=== PATIENT | female | born 1935 | race Caucasian/White ===

== ENCOUNTER → 2016-09-30 | Outpatient (CLI) | payer OTHER ==
[~2016-09-30] MED LIST: ALPR0.25 PO; B-COTAB18 PO; CALC-354 PO; CEPH500C2 PO; CIPR250T3 PO; CMD/25 PO; DILT-113 PO; DILT180C53 PO; FRS/40 PO; FURO40TA3 PO; LEVO150T9 PO; LOSA1TAB PO; MAGNTAB17 PO; MCRK20 PO; METO1TAB68 PO; METO1TAB69 PO; MULT-506 PO; PRD/1 PO; SLWMEC PO; WARF5TAB7 PO
--- NOTE | 2016-09-30 14:28 | MAMMOGRAPHY REPORT ---
BILATERAL DIGITAL SCREENING MAMMOGRAM WITH CAD: 09/30/2016 CLINICAL HISTORY: Asymptomatic. Personal history of breast cancer. TECHNIQUE: Bilateral CC, MLO and repeat left CC and MLO views were obtained. Current study was also evaluated with a Computer Aided Detection (CAD) system. COMPARISON: Comparison is made to exams dated: 09/26/2015 mammogram, 05/05/2014 mammogram, 3 mammogram, 01/29/2012 mammogram, 01/18/2011 mammogram, and 01/16/2010 mammogram - [facility]. BREAST COMPOSITION: There are scattered areas of fibroglandular density in both breasts. FINDINGS: A pacemaker is partially visualized projecting in the superior posterior left breast on th e MLO view. There is evidence of prior surgery in the anterior left breast. There are moderate vas cular calcifications and scattered benign round calcifications in the breasts. There are grouped pu nctate microcalcifications in each upper outer quadrant, stable dating back to at least 2008. A 10 mm rounded mass in the superior left breast is unchanged in size dating back to at least 2007, there fore likely benign. No new suspicious mass, architectural distortion or cluster of microcalcificati ons is seen. IMPRESSION: ACR BI-RADS CATEGORY 1: NEGATIVE There is no mammographic evidence of malignancy. A 1 year screening mammogram is recommended. The p atient will receive written notification of the results. Approximately 10% of breast cancers are not detected with mammography. A negative mammographic repor t should not delay biopsy if a clinically suggestive mass is present. Alejandra Recinos M.D. ay/:09/30/2016 13:55:41 Md Do Resident Urgent Care: Delma KINNEY(R)(M), [facility] letter sent: Normal 1/2 BI-RADS Code: ACR BI-RADS Category 1: Negative
== END | disposition home or self-care (01) ==
LOC: C.MAMM 10:39
PROVIDERS: ATTEND Family Medicine
DX: Z12.31 Encounter for screening mammogram for malignant neoplasm of breast (principal)

== ENCOUNTER → 2016-10-15 | Outpatient (CLI) | payer OTHER ==
[~2016-10-15] MED LIST changes: +METO-479 PO; +METO100T44 PO; -METO1TAB68 PO; -METO1TAB69 PO
== END | disposition home or self-care (01) ==
LOC: C.MAMM 11:26
PROVIDERS: ATTEND Internal Medicine Rheumatology
DX: Z79.52 Long term (current) use of systemic steroids (principal); M54.16 Radiculopathy, lumbar region; M81.0 Age-related osteoporosis without current pathological fracture; M85.89 Other specified disorders of bone density and structure, multiple sites

== ENCOUNTER → 2016-10-18 | Outpatient (CLI) | payer OTHER | END | disposition home or self-care (01) | LOC: C.LAB1850 11:22 | PROVIDERS: ATTEND Internal Medicine Rheumatology | DX: M35.3 Polymyalgia rheumatica (principal); Z79.52 Long term (current) use of systemic steroids; M25.473 Effusion, unspecified ankle; M85.80 Other specified disorders of bone density and structure, unspecified site; R29.898 Other symptoms and signs involving the musculoskeletal system ==

== ENCOUNTER 2016-12-21 04:38 | Inpatient (IN) | payer OTHER ==
[~2016-12-21] VITALS: Ht 175.3 cm; Wt 93.7 kg
[2016-12-21] VITALS (9 sets, daily range): BP systolic 112–151; BP diastolic 77–86; PULSE 81–99; TEMP 36.4–38.2; O2SAT 94–97; Ht 175.3 cm; Wt 93.7 kg
[~2016-12-21 04:38] MED LIST changes: -CEPH500C2 PO; -CIPR250T3 PO; -DILT180C53 PO; -FRS/40 PO; -LEVO150T9 PO; -LOSA1TAB PO; -METO100T44 PO; -SLWMEC PO; -WARF5TAB7 PO
[2016-12-21] MEDS ORDERED: ONDANSETRON INJ 2 MG/ML 2 ML VIAL IV STA (04:51)
[2016-12-21] MEDS ORDERED: SODIUM CHLORIDE 0.9% 500ML 500 ML IV STA (04:51)
[2016-12-21] MEDS ORDERED: FENTANYL CITRATE INJ 50 MCG/1 ML 2 ML VIAL IV STA (04:51)
[2016-12-21 04:59] LABS: BASO % 0.4 %; BASO ABS # 0.03 K/uL (0-0.2); COMPLETE YES; EOS % 0.3 %; HEMATOCRIT 40.6 % (37-47); IG% 0.7 %; LYMPH % 12.1 %; LYMPH ABS # 0.88 K/uL (1.2-3.4); MEAN CELL VOLUME 91.2 fL (80-100); MEAN CORPUSCULAR HEMOGLOBIN 29.9 pg (25-34); MEAN CORPUSCULAR HGB CONC 32.8 g/dl (32-36); MEAN PLATELET VOLUME 10.5 fL (7.4-10.4); NEUT % 81.5 %; PLATELET COUNT 232 K/uL (130-400); RED BLOOD COUNT 4.45 M/uL (4.2-5.4); WHITE BLOOD COUNT 7.26 K/uL (4.8-10.8)
[2016-12-21 05:09] LABS: INR 1.7 (0.9-1.1); PARTIAL THROMBOPLASTIN RATIO 1.2; PROTHROMBIN TIME (PATIENT) 18.8 SECONDS (9.0-12.0)
[2016-12-21 05:31] LABS: BUN/CREATININE RATIO 15.1 (10-20); CALCIUM 8.4 mg/dl (8.5-10.1); CREATININE 0.96 mg/dl (0.60-1.20); POTASSIUM 4.2 mmol/L (3.5-5.1)
[2016-12-21 05:42] LABS: ALB/GLOB RATIO 0.9 (0.9-2); THYROID STIMULATING HORMONE 4.51 uIu/ml (0.300-4.500)
[2016-12-21] MEDS ORDERED: FUROSEMIDE 40 MG/4 ML VIAL IV STA (05:45)
--- NOTE | 2016-12-21 05:47 | EMERGENCY ROOM VISIT NOTE ---
ED Visit Note First contact with patient: 04:41 I have personally evaluated and examined this patient. I agree with assessment and plan of Elisabet Pedersen with hypoxia on RA with congestive findings by exam/cxr. BNP elevated as well. History of CHF as well. Hypertensive here and will give IV lasix for diuresis.
[2016-12-21] MEDS ORDERED: FRS/40 PO (05:53)
[2016-12-21] MEDS ORDERED: LOSA1TAB PO (05:54)
[2016-12-21] MEDS ORDERED: SLWMEC PO (05:54)
[2016-12-21] MEDS ORDERED: LEVO150T9 PO (05:56)
[2016-12-21] MEDS ORDERED: PRD/1 PO (05:56)
[2016-12-21] MEDS ORDERED: MCRK20 PO (05:57)
[2016-12-21 06:41] LABS: MANUAL MICROSCOPIC REQUIRED? NO; REVIEW REQ? NO; URINE APPEARANCE CLEAR (CLEAR); URINE BILIRUBIN NEG (NEG); URINE COLOR YELLOW; URINE NITRITE POS (NEG); URINE PH 6.5 (4.5-7.5); URINE SPECIFIC GRAVITY 1.013 (1.000-1.030); UROBILINOGEN NEG (NEG)
--- NOTE | 2016-12-21 06:46 | EMERGENCY ROOM VISIT NOTE ---
History First contact with patient: 04:41 Chief Complaint: NAUSEA Stated Complaint: NAUSEA Nursing Triage Summary: Pt arrived via EMS. Nauseated since friday. Family states increased weakness. Family thought she should come in. History of Present Illness The patient is a 81 year old female who presents to the Emergency Room for evaluation of nausea and weakness. Per the patient's family, she has been ill for the past 2-3 days. They state that she has been weak. She reports nausea and a headache which she rates a 7/10. She complains of generalized weakness. There is no focal weakness. She denies chest pain or shortness of breath. She denies cough. She denies abdominal pain, changes in bowel movements, rectal bleeding or fevers/chills. The patient reports a history of hypertension and has a pacemaker. She does take Lasix as needed for swelling and states that she has been taking it daily for the past few days. Review of Systems A complete 10 point review of systems was reviewed with the patient with pertinent positives and negatives as per history of present illness. All else were negative. Past Medical/Surgical History Medical Problems: (1) Atrial fibrillation (2) Systolic congestive heart failure Social History Smoking Status: Never Smoker Marital Status: Current/Historical Medications Scheduled Calcium Carbonate-Cholecalcife (Caltrate 600+D), 1 TAB PO DAILY Diltiazem Hcl Ext Rel (Tiazac), 180 MG PO DAILY Furosemide (Lasix), 40 MG PO DAILY Levothyroxine Sodium (Levothyroxine Sodium), 150 MCG PO sundays Losartan Potassium (Cozaar), 25 MG PO DAILY Magnesium Chloride (Slow-Mag Tab), 64 MG PO DAILY Multivitamin (Multivitamin), 1 TAB PO DAILY Potassium Chloride (Klor-Con M20), 20 MEQ PO DAILY Prednisone (Prednisone), 9 MG PO DAILY Scheduled PRN Furosemide (Lasix), 40 MG PO DAILY PRN for SWELLING Potassium Chloride (Klor-Con M20), 20 MEQ PO DAILY PRN for when increasing lasix Allergies Coded Allergies: No Known Drug Allergy (Verified Allergy, Unknown, ., 12/21/16) Physical Exam Vital Signs Date Time Temp Pulse Resp B/P (MAP) Pulse Ox O2 Delivery O2 Flow Rate FiO2 12/21/16 07:30 103 15 157/114 95 Nasal Cannula 4.0 12/21/16 07:00 104 29 156/99 93 12/21/16 06:42 103 31 164/107 93 Nasal Cannula 4.0 12/21/16 06:00 98 39 177/93 91 12/21/16 05:33 177/122 12/21/16 05:00 99 27 173/126 93 12/21/16 04:56 92 Nasal Cannula 2.0 12/21/16 04:55 92 Nasal Cannula 2.0 12/21/16 04:54 111 12/21/16 04:42 36.5 105 32 173/102 Room Air 12/21/16 04:42 87 Room Air Physical Exam VITALS: Vitals are noted on the nurse's note and reviewed by myself. Vital signs stable. GENERAL: This is an 81-year-old female, in no acute distress, nondiaphoretic, well-developed well-nourished. HEAD: Normocephalic atraumatic. EARS: External auditory canals clear, tympanic membranes pearly crawford without erythema or effusion bilaterally. EYES: Pupils equal round and reactive to light and accommodation. Conjunctivae without injection, sclerae without icterus. Extraocular movements intact. MOUTH: Mucous membranes moist. Tonsils are not enlarged. Pharynx without erythema or exudate. NECK: Supple without nuchal rigidity. HEART: Regular rate and rhythm without murmurs gallops or rubs. LUNGS: Tachypneic, coarse lung sounds throughout. Conversational dyspnea noted. ABDOMEN: Positive bowel sounds x 4. Soft, nontender to palpation. NEURO: Patient was drowsy but responds to verbal stimuli. Medical Decision & Procedures ER Provider Diagnostic Interpretation: Chest X-ray per my interpretation: There is pulmonary vascular congestion consistent with congestive heart failure. No infiltrates. CT HEAD: No acute intracranial abnormality. No ICH, mass effect or edema Cortical atrophy and white matter changes most consistent with chronic small vessel disease. Visualized sinuses and mastoid air cells are clear. Radiologist: Faizan Hidalgo MD Laboratory Results Test 12/21/16 04:45 12/21/16 05:05 12/21/16 06:18 Immature Granulocyte % (Auto) 0.7 % White Blood Count 7.26 K/uL (4.8-10.8) Red Blood Count 4.45 M/uL (4.2-5.4) Hemoglobin 13.3 g/dL (12.0-16.0) Hematocrit 40.6 % (37-47) Mean Corpuscular Volume 91.2 fL (80-100) Mean Corpuscular Hemoglobin 29.9 pg (25-34) Mean Corpuscular Hemoglobin Concent 32.8 g/dl (32-36) Platelet Count 232 K/uL (130-400) Mean Platelet Volume 10.5 fL (7.4-10.4) Neutrophils (%) (Auto) 81.5 % Lymphocytes (%) (Auto) 12.1 % Monocytes (%) (Auto) 5.0 % Eosinophils (%) (Auto) 0.3 % Basophils (%) (Auto) 0.4 % Neutrophils # (Auto) 5.92 K/uL (1.4-6.5) Lymphocytes # (Auto) 0.88 K/uL (1.2-3.4) Monocytes # (Auto) 0.36 K/uL (0.11-0.59) Eosinophils # (Auto) 0.02 K/uL (0-0.5) Basophils # (Auto) 0.03 K/uL (0-0.2) Immature Granulocyte # (Auto) 0.05 K/uL (0.00-0.02) Activated Partial Thromboplast Time 31.7 SECONDS (21.0-31.0) Partial Thromboplastin Ratio 1.2 Est Creatinine Clear Calc Drug Dose 58.5 ml/min Total Bilirubin 0.5 mg/dl (0.2-1) Aspartate Amino Transf (AST/SGOT) 20 U/L (15-37) Alanine Aminotransferase (ALT/SGPT) 24 U/L (12-78) Alkaline Phosphatase 79 U/L (45-117) Pro-B-Type Natriuretic Peptide 2757 pg/ml (0-1800) Total Protein 7.0 gm/dl (6.4-8.2) Albumin 3.3 gm/dl (3.4-5.0) Globulin 3.7 gm/dl (2.5-4.0) Albumin/Globulin Ratio 0.9 (0.9-2) Thyroid Stimulating Hormone (TSH) 4.510 uIu/ml (0.300-4.500) Bedside Glucose 93 mg/dl (70-90) Urine Color YELLOW Urine Appearance CLEAR (CLEAR) Urine pH 6.5 (4.5-7.5) Urine Specific [place] 1.013 (1.000-1.030) Urine Protein NEG (NEG) Urine Glucose (UA) NEG (NEG) Urine Ketones NEG (NEG) Urine Occult Blood 1+ (NEG) Urine Nitrite POS (NEG) Urine Bilirubin NEG (NEG) Urine Urobilinogen NEG (NEG) Urine Leukocyte Esterase NEG (NEG) Urine WBC (Auto) 1-5 /hpf (0-5) Urine RBC (Auto) 0-4 /hpf (0-4) Urine Hyaline Casts (Auto) 0 /lpf (0-5) Urine Epithelial Cells (Auto) 10-20 /lpf (0-5) Urine Bacteria (Auto) 4+ (NEG) Medications Administered Medications (Trade) Dose Ordered Sig/Momo Route Start Time Stop Time Status Last Admin Dose Admin Sodium Chloride 500 ml @ 999 mls/hr Q31M STAT IV 12/21/16 04:51 12/21/16 05:08 DC 12/21/16 05:01 999 MLS/HR Fentanyl Citrate (Fentanyl Inj) 50 mcg NOW STAT IV 12/21/16 04:51 12/21/16 04:54 DC 12/21/16 05:02 50 MCG Ondansetron HCl (Zofran Inj) 4 mg NOW STAT IV 12/21/16 04:51 12/21/16 04:54 DC 12/21/16 05:01 4 MG Furosemide (Lasix Inj) 40 mg NOW STAT IV 12/21/16 05:45 12/21/16 05:46 DC 12/21/16 05:53 40 MG Ceftriaxone Sodium (Rocephin Inj) 1 gm NOW STAT IV 12/21/16 07:03 12/21/16 07:04 DC 12/21/16 07:30 1 GM Acetaminophen (Tylenol Tab) 650 mg Q4H PRN PO 12/21/16 07:45 01/20/17 07:44 12/21/16 19:43 650 MG ECG Rate (beats per minute): 102 Rhythm: other (ventricular-paced) Change: no significant change ED Course The patient was evaluated as above. Labs were drawn and IV access was obtained. Patient was placed on 2 L oxygen via nasal cannula and titrated up to 4 L to maintain saturations above 90%. Chest x-ray was performed and shows evidence of failure. 4 mg Lasix was ordered. Patient was reevaluated and findings were discussed. She will be admitted for further care. Urine sample was obtained and does appear consistent with infection. Patient was given 1 g Rocephin. Case was discussed with the [facility] Hospital[facility]. They agreed to evaluate the patient for admission. Medical Decision Differential diagnosis includes infection, metabolic abnormality, pneumonia, congestive heart failure, stroke, malignancy, among others. The patient is an 81-year-old female who presents today complaining of feeling ill and generalized weakness. The patient was tachypneic at a rate of 32 on my initial examination. Her oxygen saturation's hovered around 85% on room air. She did have conversational dyspnea. She was placed on oxygen and seemed to feel much better on reevaluation. Chest x-ray showed evidence of congestive heart failure. BNP was elevated at 2,700. The patient will need to be admitted due to hypoxia. Additionally, the patient's urinalysis is suggestive of a urinary tract infection. I do not feel that the patient is septic. She is afebrile and has no leukocytosis. She was given 1 g Rocephin empirically pending the urine culture. The patient was informed that she needs to be admitted for further evaluation and care. She was agreeable to this. Patient will be evaluated by the [facility] Hospitalist service for further evaluation and treatment. The patient was independently evaluated by Dr. Goldberg, ED attending physician , who agreed with my assessment and treatment plan. Impression Primary Impression: Congestive heart failure Additional Impression: Urinary tract infection Departure Information Referrals Celia Will D.O. (PCP) Patient Instructions My [facility] Problem Qualifiers
--- NOTE | 2016-12-21 06:49 | DIAGNOSTIC IMAGING REPORT ---
CHEST ONE VIEW PORTABLE CLINICAL HISTORY: nausea dyspnea COMPARISON STUDY: 12/24/2013 FINDINGS: Congestive heart failure. Moderate cardiomegaly. Implantable cardiac pacemaker/defibrillator. IMPRESSION: Congestive heart failure Electronically signed by: Mike Manrique M.D. 12/21/2016 6:47 AM Dictated Date/Time: 12/21/2016 6:47 AM
--- NOTE | 2016-12-21 06:52 | DIAGNOSTIC IMAGING REPORT ---
HEAD CT NONCONTRAST CT DOSE: 614.27 mGy.cm HISTORY: Headache headache, nausea TECHNIQUE: Multiaxial CT images of the head were performed without the use of intravenous contrast. Comparison: None. Findings: The paranasal sinuses and mastoid air cells are clear. The calvarium and skull base are intact. The ventricles and sulci are within normal limits. There is no mass, hematoma, midline shift, or acute infarct. Age-related atrophy and chronic small vessel change Impression: No acute intracranial abnormality. Age-related change. Electronically signed by: Mike Manrique M.D. 12/21/2016 6:51 AM Dictated Date/Time: 12/21/2016 6:50 AM
[2016-12-21] MEDS ORDERED: CEFTRIAXONE SOD INJ 1 GM ADDVIAL IV STA (07:03)
[2016-12-21] MEDS ORDERED: ONDANSETRON INJ 2 MG/ML 2 ML VIAL IV PRN (07:45)
[2016-12-21] MEDS ORDERED: MAGNESIUM HYDROXIDE SUSP 30 ML UDC PO PRN (07:45)
[2016-12-21] MEDS ORDERED: ALUMINUM/MAGNESIUM/SIMETH (MAALOX MAX) 30 ML UDC PO PRN (07:45)
[2016-12-21] MEDS ORDERED: ACETAMINOPHEN 325 MG TAB PO PRN (07:45)
--- NOTE | 2016-12-21 08:29 | History and Physical ---
History & Physical Date & Time of Service: Dec 21, 2016 at 08:10 Chief Complaint: Nausea Primary Care Physician: Celia Will D.O. History of Present Illness Source: patient, family Ms. Hendricks is an 81 y/o female with PMHx of Persistent Atrial Fibrillation, Nonischemic Cardiomyopathy, Systolic Congestive Heart Failure S/P Pacemaker, PMR , and HTN who presents to the ED by EMS for nausea and weakness x 2-3 days. Family members at bedside report she has been generally weak over these past couple days but was waxing and waning. Also complains of a headache that was initially 7/10 that is located in the forehead and around her eyes but is currently improving. She takes daily Lasix 40 mg daily and utilizes when necessary dosing. Over the past couple days she reports needing to use her when necessary dosing. She is undergoing prednisone tapers for PMR and currently at prednisone 9 mg daily. Due to chronic steroid use she is unsure of her dry weight. She denies fever/chills, chest pain, SOB, emesis, abdominal pain, dysuria, melena/hematochezia. In the ED, patient noted to be 87% on room air and was placed on 4 L NC with adequate oxygenation. Patient does not utilize oxygen at home. She is afebrile and without leukocytosis. CXR consistent with acute CHF findings. BNP 2757. UA with 4+ bacteria and positive nitrite with culture pending. She will be admitted to telemetry for acute on chronic systolic CHF. Past Medical/Surgical History Medical Problems: (1) Atrial fibrillation Status: Chronic Family History Hypertension Social History Smoking Status: Never Smoker Smokeless Tobacco Use: No Alcohol Use: none Drug Use: none Marital Status: Housing status: lives with family Immunizations History of Influenza Vaccine: Yes History of Tetanus Vaccine?: Yes History of Pneumococcal: Yes History of Hepatitis B Vaccine: No Multi-Drug Resistant Organisms History of MDRO: No Allergies Coded Allergies: No Known Drug Allergy (Verified Allergy, Unknown, ., 12/21/16) Home Medications Scheduled Calcium Carbonate-Cholecalcife (Caltrate 600+D), 1 TAB PO DAILY Diltiazem Hcl Ext Rel (Tiazac), 180 MG PO DAILY Furosemide (Lasix), 40 MG PO DAILY Levothyroxine Sodium (Levothyroxine Sodium), 150 MCG PO sundays Losartan Potassium (Cozaar), 25 MG PO DAILY Magnesium Chloride (Slow-Mag Tab), 64 MG PO DAILY Multivitamin (Multivitamin), 1 TAB PO DAILY Potassium Chloride (Klor-Con M20), 20 MEQ PO DAILY Prednisone (Prednisone), 9 MG PO DAILY Scheduled PRN Furosemide (Lasix), 40 MG PO DAILY PRN for SWELLING Potassium Chloride (Klor-Con M20), 20 MEQ PO DAILY PRN for when increasing lasix Review of Systems Constitutional: + weakness (generalized), + fatigue, No fever, No chills Eyes: No worsening of vision, No eye pain, No diplopia ENT: + problem reported (dry mouth), No nasal symptoms, No sore throat, No trouble swallowing Respiratory: No cough, No wheezing, No shortness of breath Cardiovascular: + edema (bilateral legs), No chest pain, No palpitations Abdomen: + nausea (RESOLVED), No pain, No vomiting, No diarrhea, No constipation, No GI bleeding Musculoskeletal: No calf pain Genitourinary - Female: No dysuria Hematologic / Lymphatic: No abnormal bleeding/bruising Integumentary: No rash, No new/changing skin lesions Physical Exam Vital Signs Date Time Temp Pulse Resp B/P (MAP) Pulse Ox O2 Delivery O2 Flow Rate FiO2 12/21/16 08:08 96 12/21/16 07:30 103 15 157/114 95 Nasal Cannula 4.0 12/21/16 07:00 104 29 156/99 93 12/21/16 06:42 103 31 164/107 93 Nasal Cannula 4.0 12/21/16 06:00 98 39 177/93 91 12/21/16 05:33 177/122 12/21/16 05:00 99 27 173/126 93 12/21/16 04:56 92 Nasal Cannula 2.0 12/21/16 04:55 92 Nasal Cannula 2.0 12/21/16 04:54 111 12/21/16 04:42 36.5 105 32 173/102 Room Air 12/21/16 04:42 87 Room Air General Appearance: WD/WN, no apparent distress Head: normocephalic, atraumatic Eyes: sclerae normal ENT: hearing grossly normal Neck: supple, no JVD, trachea midline Respiratory/Chest: no respiratory distress, no accessory muscle use, + crackles (mild R base) Cardiovascular: no gallop, no murmur, + irregularly irregular Abdomen/GI: normal bowel sounds, non tender, soft Back: normal inspection, no CVA tenderness Extremities/Musculoskelatal: no calf tenderness, + swelling (1-2+ bilat pitting edema) Neurologic/Psych: alert, oriented x 3 Skin: normal color, warm/dry Diagnostics Laboratory Results Results Past 24 Hours Test 12/21/16 04:45 12/21/16 05:05 12/21/16 06:18 Range/Units White Blood Count 7.26 4.8-10.8 K/uL Red Blood Count 4.45 4.2-5.4 M/uL Hemoglobin 13.3 12.0-16.0 g/dL Hematocrit 40.6 37-47 % Mean Corpuscular Volume 91.2 80-100 fL Mean Corpuscular Hemoglobin 29.9 25-34 pg Mean Corpuscular Hemoglobin Concent 32.8 32-36 g/dl Platelet Count 232 130-400 K/uL Mean Platelet Volume 10.5 7.4-10.4 fL Neutrophils (%) (Auto) 81.5 % Lymphocytes (%) (Auto) 12.1 % Monocytes (%) (Auto) 5.0 % Eosinophils (%) (Auto) 0.3 % Basophils (%) (Auto) 0.4 % Neutrophils # (Auto) 5.92 1.4-6.5 K/uL Lymphocytes # (Auto) 0.88 1.2-3.4 K/uL Monocytes # (Auto) 0.36 0.11-0.59 K/uL Eosinophils # (Auto) 0.02 0-0.5 K/uL Basophils # (Auto) 0.03 0-0.2 K/uL RDW Standard Deviation 44.8 36.4-46.3 fL RDW Coefficient of Variation 13.4 11.5-14.5 % Immature Granulocyte % (Auto) 0.7 % Immature Granulocyte # (Auto) 0.05 0.00-0.02 K/uL Prothrombin Time 18.8 9.0-12.0 SECONDS Prothromb Time International Ratio 1.7 0.9-1.1 Activated Partial Thromboplast Time 31.7 21.0-31.0 SECONDS Partial Thromboplastin Ratio 1.2 Sodium Level 138 136-145 mmol/L Potassium Level 4.2 3.5-5.1 mmol/L Chloride Level 106 98-107 mmol/L Carbon Dioxide Level 24 21-32 mmol/L Anion Gap 8.0 3-11 mmol/L Blood Urea Nitrogen 14 7-18 mg/dl Creatinine 0.96 0.60-1.20 mg/dl Est Creatinine Clear Calc Drug Dose 58.5 ml/min Estimated GFR () 64.3 Estimated GFR (Non- 55.5 BUN/Creatinine Ratio 15.1 10-20 Random Glucose 100 70-99 mg/dl Calcium Level 8.4 8.5-10.1 mg/dl Total Bilirubin 0.5 0.2-1 mg/dl Aspartate Amino Transf (AST/SGOT) 20 15-37 U/L Alanine Aminotransferase (ALT/SGPT) 24 12-78 U/L Alkaline Phosphatase 79 45-117 U/L Troponin I 0.017 0-0.045 ng/ml Pro-B-Type Natriuretic Peptide 2757 0-1800 pg/ml Total Protein 7.0 6.4-8.2 gm/dl Albumin 3.3 3.4-5.0 gm/dl Globulin 3.7 2.5-4.0 gm/dl Albumin/Globulin Ratio 0.9 0.9-2 Thyroid Stimulating Hormone (TSH) 4.510 0.300-4.500 uIu/ml Bedside Glucose 93 70-90 mg/dl Urine Color YELLOW Urine Appearance CLEAR CLEAR Urine pH 6.5 4.5-7.5 Urine Specific [place] 1.013 1.000-1.030 Urine Protein NEG NEG Urine Glucose (UA) NEG NEG Urine Ketones NEG NEG Urine Occult Blood 1+ NEG Urine Nitrite POS NEG Urine Bilirubin NEG NEG Urine Urobilinogen NEG NEG Urine Leukocyte Esterase NEG NEG Urine WBC (Auto) 1-5 0-5 /hpf Urine RBC (Auto) 0-4 0-4 /hpf Urine Hyaline Casts (Auto) 0 0-5 /lpf Urine Epithelial Cells (Auto) 10-20 0-5 /lpf Urine Bacteria (Auto) 4+ NEG Diagnostic Radiology CHEST ONE VIEW PORTABLE FINDINGS: Congestive heart failure. Moderate cardiomegaly. Implantable cardiac pacemaker/defibrillator. IMPRESSION: Congestive heart failure HEAD CT NONCONTRAST Findings: The paranasal sinuses and mastoid air cells are clear. The calvarium and skull base are intact. The ventricles and sulci are within normal limits. There is no mass, hematoma, midline shift, or acute infarct. Age-related atrophy and chronic small vessel change Impression: No acute intracranial abnormality. Age-related change Impression Assessment and Plan Ms. Hendricks is an 81 y/o female with PMHx of Persistent Atrial Fibrillation, Nonischemic Cardiomyopathy, Systolic Congestive Heart Failure S/P Pacemaker, PMR , and HTN who presents to the ED by EMS for nausea and weakness x 2-3 days. She will be admitted to telemetry for acute on chronic systolic CHF. Acute on Chronic Systolic CHF with Hypoxia: - Echo (2013) - EF 20-25% with septal motion conduction abnormality - however this echocardiogram was prior to pacemaker placement - Obtain updated echocardiogram - Serial cardiac enzymes - Lasix 40 mg IV 1 dose in ED will repeat Lasix 40 mg IV 1 dose at 2100 - Daily weights and I&O - unsure of dry weight Hypertensive Urgency: - Likely related to fluid overload - is improving with diuresis - Diltiazem 180 mg daily and losartan 25 mg daily UTI: - Rocephin 1 g IV daily - await culture results Persistent Atrial Fibrillation S/P Pacer: - INR subtherapeutic at 1.7 - Warfarin 5 mg daily and trend INR - Metoprolol XL 200 mg daily? - Will verify dosing due to high dose - Unsure of complete med rec as patient only has one page of her list - will obtain med rec PMR: STABLE - Prednisone 9 mg daily Hyperthyroidism: STABLE - Synthroid 150 mcg daily DVT Prophylaxis: Warfarin Code Status: FULL RESUSCITATION Level of Care Telemetry Advanced Directives Existing Advance Directive: Yes Resuscitation Status FULL RESUSCITATION VTE Prophylaxis VTE Risk Assessment Done? Y/N: Yes Risk Level: Moderate Given or contraindicated: Warfarin (Coumadin)
[2016-12-21] MEDS ORDERED: PERFLUTREN LIPID MICROSPHERE (DEFINITY) IV ONE (09:08)
[2016-12-21] MEDS ORDERED: FUROSEMIDE INJ 40 MG in SYRINGE 0 ML IV ONE (10:30)
--- NOTE | 2016-12-21 10:56 | ECHOCARDIOGRAM REPORT ---
*NOTICE TO RECEIVING REPUBLICAN AGENCY This information is strictly Confidential and protected under [place] law. [place] law prohibits you from making any further disclosure of this information unless further disclosure is expressly permitted by the written consent of the person to whom it pertains or is authorized by law. A general authorization for the release of medical or other information is not sufficient for this purpose. Hospital accepts no responsibility if the information is made available to any other person, INCLUDING THE PATIENT. Interpretation Summary * Name: CHRISTI UGARTE Study Date: 12/21/2016 08:43 AM BP: 147/108 mmHg * Patient Location: C.EDB HR: 100 * : 1935 (M/d/yyyy) Gender: Female Height: 69 in * Age: 81 yrs Ethnicity: [place] Weight: 225 lb * Ordering Physician: Daysi Richter * Referring Physician: MICKEY * Performed By: Rosa Isela Bernard RDCS * * Reason For Study: CHF * BSA: 2.2 m2 * -- Conclusions -- * The left ventricle is mildly dilated. * Ejection Fraction = 35-40%. * Left ventricular systolic function is moderately reduced. * The septum and anteroseptum are thin and akinetic. * The basal to mid inferior and inferolateral armenta are hypokinetic. * The left atrium is severely dilated. * Aortic valve sclerosis moderate, without significant aortic valvular stenosis. * Diastolic dysfunction, Grade III (restrictive pattern), consistent with markedly increased left atrial pressure. Procedure Details * A contrast injection of Definity was performed to improve assessment of LV function. * Contrast was injected into an intravenous site in the left arm. * One vial of Definity ultrasound contrast was diluted in normal saline to a total volume of 10 ml. A total of '2' ml of solution was administered during imaging. * Lot # [id number] of Definity utilized for procedure. * Expiration date FEB 21. * The attending nurse who injected the contrast agent was SAMIA LEPE. Left Ventricle * The left ventricle is mildly dilated. * Ejection Fraction = 35-40%. * Left ventricular systolic function is moderately reduced. * The septum and anteroseptum are thin and akinetic. The basal to mid inferior and inferolateral armenta are hypokinetic. Right Ventricle * The right ventricle is normal in size and function. Atria * The left atrium is severely dilated. * The right atrium is severely dilated. Mitral Valve * There is severe mitral annular calcification. * There is mild mitral regurgitation. Tricuspid Valve * The tricuspid valve is not well visualized, but is grossly normal. * There is mild to moderate tricuspid regurgitation. * Right ventricular systolic pressure is elevated at 30-40mmHg. Aortic Valve * Aortic valve sclerosis moderate, without significant aortic valvular stenosis. * No aortic regurgitation is present. Pulmonic Valve * The pulmonic valve is not well seen, but is grossly normal. Great Vessels * There is aortic root sclerosis/calcification. Pericardium/Pleural * There is no pericardial effusion. Great Vessels * IVC not well seen Left Ventricular Diastolic Function * Diastolic dysfunction, Grade III (restrictive pattern), consistent with markedly increased left atrial pressure. MMode 2D Measurements and Calculations IVSd 1.3 cm IVSs 1.4 cm LVIDd 3.9 cm LVIDs 3.5 cm LVPWd 1.3 cm LVPWs 1.6 cm IVS/LVPW 0.98 FS 12.0 % EDV(Teich) 66.9 ml ESV(Teich) 49.3 ml EF(Teich) 26.3 % EDV(cubed) 60.4 ml ESV(cubed) 41.2 ml EF(cubed) 31.7 % % IVS thick 8.5 % % LVPW thick 21.9 % LV mass(C)d 182.5 grams LV mass(C)dI 84.0 grams/m\S\2 LV mass(C)s 191.0 grams LV mass(C)sI 88.0 grams/m\S\2 SV(Teich) 17.6 ml SI(Teich) 8.1 ml/m\S\2 SV(cubed) 19.2 ml SI(cubed) 8.8 ml/m\S\2 Ao root diam 3.1 cm Ao root area 7.6 cm\S\2 LA dimension 3.9 cm LA/Ao 1.2 LVAd ap4 29.2 cm\S\2 LVLd ap4 6.8 cm EDV(MOD-sp4) 101.2 ml EDV(sp4-el) 105.9 ml LVAs ap4 22.0 cm\S\2 LVLs ap4 5.7 cm ESV(MOD-sp4) 70.1 ml ESV(sp4-el) 71.6 ml EF(MOD-sp4) 30.7 % EF(sp4-el) 32.3 % SV(MOD-sp4) 31.1 ml SI(MOD-sp4) 14.3 ml/m\S\2 SV(sp4-el) 34.3 ml SI(sp4-el) 15.8 ml/m\S\2 Doppler Measurements and Calculations MV E max annie 121.7 cm/sec MV dec time 0.18 sec Ao V2 max 132.7 cm/sec Ao max PG 7.0 mmHg Ao max PG (full) 4.9 mmHg LV V1 max PG 2.2 mmHg LV V1 max 73.7 cm/sec MR max annie 384.4 cm/sec MR max PG 59.1 mmHg TR max annie 254.4 cm/sec
[2016-12-21] MEDS ORDERED: WARFARIN SOD 5 MG TAB PO ONE (16:00)
[2016-12-21] MEDS ORDERED: METOPROLOL SUCC 50MG EXT REL TAB PO SCH (16:00)
[2016-12-21] MEDS: FUROSEMIDE INJ 40 MG in SYRINGE 0 ML IV SCH (17:00)
[2016-12-21] MEDS ORDERED: NURSING VERBAL MED ORDER ONE (18:15)
[2016-12-21] MEDS: METOPROLOL SUCC 50MG EXT REL TAB PO SCH (18:21)
[2016-12-21] MEDS ORDERED: ASPIRIN 325 MG ECTAB PO ONE (19:15)
[2016-12-21] MEDS: HYDROCORTISONE IV 50 MG in SYRINGE 0 ML IV SCH (22:05)
[2016-12-22] VITALS (7 sets, daily range): BP systolic 112–140; BP diastolic 66–87; PULSE 69–87; TEMP 36.4–36.8; O2SAT 91–98
[2016-12-22] MEDS: LEVOTHYROXINE 150 MCG TAB PO SCH (05:44)
[2016-12-22] MEDS: HYDROCORTISONE IV 50 MG in SYRINGE 0 ML IV SCH ×3 (05:45→21:42)
[2016-12-22 06:21] LABS: HEMATOCRIT 46.9 % (37-47); MEAN CELL VOLUME 91.2 fL (80-100); MEAN CORPUSCULAR HEMOGLOBIN 29.2 pg (25-34); MEAN PLATELET VOLUME 10.8 fL (7.4-10.4); PLATELET COUNT 227 K/uL (130-400); RED BLOOD COUNT 5.14 M/uL (4.2-5.4); WHITE BLOOD COUNT 6.55 K/uL (4.8-10.8)
[2016-12-22 06:28] LABS: INR 1.6 (0.9-1.1); PROTHROMBIN TIME (PATIENT) 17.5 SECONDS (9.0-12.0)
[2016-12-22 07:04] LABS: BUN/CREATININE RATIO 17.2 (10-20); CALCIUM 8.4 mg/dl (8.5-10.1); CREATININE 1.3 mg/dl (0.60-1.20); MAGNESIUM 2.1 mg/dl (1.8-2.4); POTASSIUM 3.4 mmol/L (3.5-5.1)
[2016-12-22] MEDS: FUROSEMIDE INJ 40 MG in SYRINGE 0 ML IV SCH ×2 (07:34→08:32)
[2016-12-22] MEDS: LOSARTAN POTASSIUM 25 MG TAB PO SCH (07:35)
[2016-12-22] MEDS: DILTIAZEM HCL (TIAzac) 180 MG CAPCR PO SCH (07:36)
[2016-12-22] MEDS: MULTIVITAMIN TAB PO SCH (07:36)
[2016-12-22] MEDS: METOPROLOL SUCC 50MG EXT REL TAB PO SCH (07:37)
[2016-12-22] MEDS: MAGNESIUM CHLORIDE 64MG DELAYED REL TAB PO SCH (07:37)
[2016-12-22] MEDS ORDERED: CEFTRIAXONE SOD INJ 1 GM in DEXTROSE 5% ADD-VANTAGE 50ML 50 ML IV SCH (08:00)
[2016-12-22] MEDS: POTASSIUM CHLORIDE 20 MEQ TABCR PO SCH (08:33)
[2016-12-22] MEDS ORDERED: POTASSIUM CHLORIDE 20 MEQ TABCR PO SCH (09:00)
--- NOTE | 2016-12-22 12:30 | Progress Note ---
Subjective Date of Service: Dec 22, 2016. Subjective Pt evaluation today including: conversation w/ patient, conversation w/ family , physical exam, lab review, review of studies, review of inpatient medication list Pain: no pain PO Intake: improving Voiding: hernandez catheter in place patient feels much better today, diuresed 5 liters since admission she looks more alert, feels more energetic today, perhaps due to Hydrocortisone long discussion with patient and family regarding compliance with Lasix she sometimes forgets to take her Lasix, for instance, she won't take it prior to temple or running errands, and then forget to take when she gets back she does not weigh herself every day she does not follow any type of fluid restriction, she drinks a lot of coffee, juice, water she has appointment with Dr. Taylor on Friday, requesting to see him in hospital, will place consult for tomorrow also, she has had ongoing issues with her PMR diagnosis, followed with several rheumatologists has been tapering her Prednisone dose Problem List Medical Problems: (1) Congestive heart failure Status: Acute (2) Urinary tract infection Status: Acute Review of Systems Constitutional: + weakness, + fatigue Respiratory: + shortness of breath (better) Cardiac: + edema Musculoskeletal: + joint pain (diffuse, mostly legs, chronic) All Other Systems: Reviewed and Negative Medications Current Inpatient Medications Medications (Trade) Dose Ordered Sig/Momo Route Start Time Stop Time Status Last Admin Dose Admin Acetaminophen (Tylenol Tab) 650 mg Q4H PRN PO 12/21/16 07:45 01/20/17 07:44 12/21/16 19:43 650 MG Al Hydrox/Mg Hydrox/Simethicone (Maalox Max Susp) 15 ml Q4H PRN PO 12/21/16 07:45 01/20/17 07:44 Magnesium Hydroxide (Milk Of Magnesia Susp) 30 ml Q12H PRN PO 12/21/16 07:45 01/20/17 07:44 Ondansetron HCl (Zofran Inj) 4 mg Q6H PRN IV 12/21/16 07:45 01/20/17 07:44 Polyethylene (Miralax Powder Packet) 17 gm DAILY PRN PO 12/21/16 07:45 01/20/17 07:44 Diltiazem HCl (TIAzac CAP) 180 mg DAILY PO 12/22/16 09:00 01/21/17 08:59 12/22/16 07:36 180 MG Levothyroxine Sodium (Synthroid Tab) 150 mcg DAILYBB PO 12/22/16 06:00 01/21/17 05:59 12/22/16 05:44 150 MCG Losartan Potassium (coZAAR TAB) 25 mg DAILY PO 12/22/16 09:00 01/21/17 08:59 12/22/16 07:35 25 MG Magnesium Chloride (Slow-Mag Tab) 64 mg DAILY PO 12/22/16 09:00 01/21/17 08:59 12/22/16 07:37 64 MG Multivitamins (Multivitamin Tab) 1 tab DAILY PO 12/22/16 09:00 01/21/17 08:59 12/22/16 07:36 1 TAB Prednisone (PredniSONE TAB) 9 mg DAILY PO 12/22/16 09:00 01/21/17 08:59 Future Hold Ceftriaxone Sodium 1 gm/ Dextrose 50 ml @ 100 mls/hr Q24H IV 12/22/16 08:00 12/27/16 07:59 12/22/16 07:34 100 MLS/HR Metoprolol Succinate (Toprol Xl Tab) 200 mg DAILY PO 12/21/16 21:00 01/20/17 15:59 12/22/16 07:37 200 MG Hydrocortisone Sodium Succinate 50 mg/Syringe 1 ml @ 4 mls/min Q8 IV 12/21/16 22:00 01/20/17 21:59 12/22/16 05:45 4 MLS/MIN Furosemide 40 mg/ Syringe 4 ml @ 4 mls/min DAILY IV 12/22/16 09:00 01/20/17 16:59 12/22/16 08:32 4 MLS/MIN Potassium Chloride (Klor-Con Tab) 40 meq DAILY PO 12/22/16 09:00 01/21/17 08:59 12/22/16 08:33 40 MEQ Warfarin Sodium (Coumadin Tab) 5 mg DAILY@16 PO 12/22/16 16:00 01/21/17 15:59 Objective Vital Signs Date Time Temp Pulse Resp B/P (MAP) Pulse Ox O2 Delivery O2 Flow Rate FiO2 12/22/16 11:45 36.7 87 26 112/66 (81) 95 Room Air 12/22/16 08:19 36.8 85 23 124/68 (86) 97 Nasal Cannula 2.0 12/22/16 08:00 Nasal Cannula 1.0 12/22/16 04:00 97 Nasal Cannula 4.0 12/22/16 03:31 36.4 76 16 140/87 (104) 97 Nasal Cannula 4.0 12/22/16 00:00 97 Nasal Cannula 4.0 12/21/16 23:15 36.6 81 20 122/77 (92) 97 Nasal Cannula 4.0 12/21/16 20:00 94 Nasal Cannula 3.0 12/21/16 19:58 36.7 89 31 124/86 (99) 94 Nasal Cannula 3.0 12/21/16 19:30 38.2 12/21/16 19:30 38.2 12/21/16 16:00 Nasal Cannula 2.0 12/21/16 15:50 36.4 99 23 129/86 (100) 97 Nasal Cannula 4.0 Physical Exam General Appearance: WD/WN, no apparent distress Neck: supple, no adenopathy, no JVD, trachea midline Respiratory/Chest: chest non-tender, lungs clear, normal breath sounds, no respiratory distress, no accessory muscle use Cardiovascular: regular rate, rhythm, no edema, no gallop, no JVD, no murmur Abdomen: normal bowel sounds, non tender, soft, no organomegaly Extremities: normal range of motion, non-tender, normal inspection, no calf tenderness, normal capillary refill, pelvis stable, + pedal edema (trace bilaterally) Neurologic/Psychiatric: certified medical biller II-XII nml as tested, no motor/sensory deficits, alert, normal mood/affect, oriented x 3 Skin: normal color, warm/dry, no rash Laboratory Results Last 24 Hours Test 12/21/16 16:55 12/22/16 05:35 Troponin I 0.366 ng/ml 0.355 ng/ml White Blood Count 6.55 K/uL Red Blood Count 5.14 M/uL Hemoglobin 15.0 g/dL Hematocrit 46.9 % Mean Corpuscular Volume 91.2 fL Mean Corpuscular Hemoglobin 29.2 pg Mean Corpuscular Hemoglobin Concent 32.0 g/dl RDW Standard Deviation 44.7 fL RDW Coefficient of Variation 13.4 % Platelet Count 227 K/uL Mean Platelet Volume 10.8 fL Prothrombin Time 17.5 SECONDS Prothromb Time International Ratio 1.6 Sodium Level 139 mmol/L Potassium Level 3.4 mmol/L Chloride Level 98 mmol/L Carbon Dioxide Level 30 mmol/L Anion Gap 11.0 mmol/L Blood Urea Nitrogen 22 mg/dl Creatinine 1.30 mg/dl Est Creatinine Clear Calc Drug Dose 41.4 ml/min Estimated GFR () 44.6 Estimated GFR (Non- 38.4 BUN/Creatinine Ratio 17.2 Random Glucose 116 mg/dl Calcium Level 8.4 mg/dl Magnesium Level 2.1 mg/dl Assessment and Plan Ms. Hendricks is an 81 y/o female with PMHx of Persistent Atrial Fibrillation, Nonischemic Cardiomyopathy, Systolic Congestive Heart Failure S/P Pacemaker, PMR , and HTN who presents to the ED by EMS for nausea and weakness x 2-3 days. She will be admitted to telemetry for acute on chronic systolic CHF. Acute on Chronic Systolic CHF with Hypoxia: likely due to poor compliance, steroid use responded well to Lasix 40mg IV BID, 5 liters out, weight going down fluid restrict to 1500cc/day, follow weight and I/O's continue Toprol 200mg BID, Losartan will decrease Lasix to 40mg IV daily, follow response consult cardiology to see tomorrow patient needs heart failure clinic referral, poor compliance, needs educated on fluid restriction and daily weights repeat Echo shows 35-40% Hypertensive Urgency: resolved - Likely related to fluid overload - is improving with diuresis - Diltiazem 180 mg daily and losartan 25 mg daily and Toprol 200mg BID UTI: - Rocephin 1 g IV daily - urine culture GN bacilli, change to PO antibiotic once culture back Persistent Atrial Fibrillation S/P Pacer: - INR subtherapeutic at 1.5 - Warfarin 5 mg daily and trend INR - Metoprolol XL 200 mg BID, Diltiazem PMR: STABLE - will give stress dose Hydrocortisone today, definitely responded well with more energy - resume Prednisone 9mg daily tomorrow Hyperthyroidism: STABLE - Synthroid 150 mcg daily DVT Prophylaxis: Warfarin Code Status: FULL RESUSCITATION keep on tele, PT/OT today
[2016-12-22] MEDS: POLYETHYLENE (MIRALAX) 17 GM PACK PO PRN (13:02)
[2016-12-22] MEDS: WARFARIN SOD 5 MG TAB PO SCH (15:11)
[2016-12-22] MEDS ORDERED: WARFARIN SOD 2.5 MG TAB PO SCH (16:00)
[2016-12-23] VITALS (7 sets, daily range): BP systolic 121–157; BP diastolic 65–93; PULSE 82–85; TEMP 36.4–36.7; O2SAT 93–98
[2016-12-23] MEDS: LEVOTHYROXINE 150 MCG TAB PO SCH (05:57)
[2016-12-23] MEDS: HYDROCORTISONE IV 50 MG in SYRINGE 0 ML IV SCH (06:00)
[2016-12-23 06:46] LABS: HEMATOCRIT 46.5 % (37-47); MEAN CELL VOLUME 90.1 fL (80-100); MEAN CORPUSCULAR HEMOGLOBIN 29.7 pg (25-34); MEAN CORPUSCULAR HGB CONC 32.9 g/dl (32-36); MEAN PLATELET VOLUME 11.3 fL (7.4-10.4); PLATELET COUNT 245 K/uL (130-400); RED BLOOD COUNT 5.16 M/uL (4.2-5.4); WHITE BLOOD COUNT 10.39 K/uL (4.8-10.8)
[2016-12-23 06:57] LABS: INR 2.3 (0.9-1.1); PROTHROMBIN TIME (PATIENT) 25.7 SECONDS (9.0-12.0)
--- NOTE | 2016-12-23 07:15 | Hospitalist Progress Note ---
Hospitalist Progress Note Date of Service Dec 23, 2016. (Alfreda Arzola PA-C) Subjective Pt evaluation today including: conversation w/ patient, conversation w/ family , physical exam, chart review, lab review, review of studies Pain: None PO Intake: Good Voiding: hernandez catheter in place The patient was seen and examined this morning. Pt reports doing very well today and hopes to go home. She denies any acute complaints. Her breathing is good, swelling is significantly improved in her lower legs, and she has been up and walking better today compared to before. Discussion was held regarding medication compliance with lasix. She is agreeable to this and will keep better track with a calendar and pill box, and weighing herself every day. ROS: She denies any fever, chills, sweats, chest pain, flutter, palpitations, shortness of breath, abdominal pain, n/v/d/c, fatigue, weakness, or difficulty with ambulation. She has not had a BM since being here but states when she goes home she'll have one. (Alfreda Arzola PA-C) Objective Vital Signs Date Time Temp Pulse Resp B/P (MAP) Pulse Ox O2 Delivery O2 Flow Rate FiO2 12/23/16 04:01 36.6 82 18 144/91 (108) 98 Room Air 12/23/16 04:00 98 Room Air 12/23/16 00:23 36.4 84 18 121/65 (83) 96 Room Air 12/23/16 00:00 96 Room Air 12/22/16 20:00 98 Room Air 12/22/16 20:00 36.5 75 133/69 (90) 98 Room Air 12/22/16 16:00 Room Air 12/22/16 15:29 36.6 69 16 133/70 (91) 91 Room Air 12/22/16 12:00 Room Air 12/22/16 11:45 36.7 87 26 112/66 (81) 95 Room Air 12/22/16 08:19 36.8 85 23 124/68 (86) 97 Nasal Cannula 2.0 12/22/16 08:00 Nasal Cannula 1.0 (Alfreda Arzola, ART) Physical Exam General Appearance: WD/WN, no apparent distress, + pertinent finding ( overweight) Eyes: PERRL, EOMI ENT: hearing grossly normal, pharynx normal Neck: supple, no JVD Respiratory/Chest: chest non-tender, lungs clear, normal breath sounds, no respiratory distress Cardiovascular: no JVD, + tachycardia (regular rhythm), + systolic murmur Abdomen: non tender Extremities: non-tender, no pedal edema, no calf tenderness Neurologic/Psychiatric: alert, normal mood/affect, oriented x 3 Skin: normal color, warm/dry (Alfreda Arzola, ART) Laboratory Results Last 24 Hours Test 12/23/16 06:21 White Blood Count 10.39 K/uL Red Blood Count 5.16 M/uL Hemoglobin 15.3 g/dL Hematocrit 46.5 % Mean Corpuscular Volume 90.1 fL Mean Corpuscular Hemoglobin 29.7 pg Mean Corpuscular Hemoglobin Concent 32.9 g/dl RDW Standard Deviation 44.0 fL RDW Coefficient of Variation 13.3 % Platelet Count 245 K/uL Mean Platelet Volume 11.3 fL Prothrombin Time 25.7 SECONDS Prothromb Time International Ratio 2.3 (Alfreda Arzola, ART) Assessment and Plan Ms. Hendricks is an 81 y/o female with PMHx of Persistent Atrial Fibrillation, Nonischemic Cardiomyopathy, Systolic Congestive Heart Failure S/P Pacemaker, PMR , and HTN who presents to the ED by EMS for nausea and weakness x 2-3 days. She will be admitted to telemetry for acute on chronic systolic CHF. Acute on Chronic Systolic CHF with Hypoxia: likely due to poor compliance, steroid use - responded well to aggressive Lasix 40mg IV BID- now cont Lasix 40mg IV daily, follow response, 5 liters out, weight going down - will resume Lasix 40 mg PO daily at home upon discharge. Will provide CHF instructions for taking extra 40 mg daily to total 80 mg, if she gains more than 1-2 lbs in a day, or more than 5lbs within 1 week. - Will need cardiology follow up withing 4 weeks. - fluid restrict to 1500cc/day, follow weight and I/O's - continue Metoprolol succinate 200mg daily, diltiazem 180 mg daily - Cardiology consulted: appreciate recs - patient needs heart failure clinic referral, poor compliance, needs educated on fluid restriction and daily weights - discussion was held at bedside - repeat Echo shows 35-40% Hypertensive Urgency: resolved - Likely related to fluid overload - BP still remains slightly elevated but is improving with diuresis - Diltiazem 180 mg daily, Metoprolol 200 mg QAM, and holding losartan UTI, E. coli - Ucx is pansensitive. - Rocephin 1 g IV daily x 3 days, will start on cipro 250 mg BID x 7 days. Persistent Atrial Fibrillation S/P Pacer: - INR subtherapeutic at 1.5 - Warfarin 5 mg daily and trend INR - Metoprolol XL 200 mg BID, Diltiazem PMR: STABLE - can d/c stress dose Hydrocortisone today - resume Prednisone 9mg daily today Hyperthyroidism: STABLE - Synthroid 150 mcg daily DVT Prophylaxis: Warfarin Code Status: FULL RESUSCITATION Disposition: keep on tele, PT/OT today,discharge home today. (Alfreda Arzola, PA-C) Attending Attestation: Pt seen/examined, chart reviewed, care plan d/w DEDRICK Arzola. I agree w/ the looney components of her documentation. Dyspnea resolved. No UTI symptoms. Feels good/ready for d/c. VSS gen - nad neck - no JVD heart - RRR lungs - cta b/l, no rales A/P: 1. acute/chronic systolic CHF - compensated. d/c home lasix 40mg daily. Cont BB, etc. 2. e. coli UTI - cipro x 1 week. d/c home close cardiac f/u Yanni ARNETT MD (Aj Arnett MD)
[2016-12-23 07:21] LABS: BUN/CREATININE RATIO 26.4 (10-20); CALCIUM 8.7 mg/dl (8.5-10.1); CREATININE 1.2 mg/dl (0.60-1.20); MAGNESIUM 2.3 mg/dl (1.8-2.4); POTASSIUM 3.5 mmol/L (3.5-5.1)
[2016-12-23] MEDS ORDERED: CIPR250T3 PO (09:41)
--- NOTE | 2016-12-23 09:49 | Discharge Instructions ---
Discharge Instructions Date of Service Dec 23, 2016. Admission Reason for Admission: Systolic Congestive Heart Failure Discharge Discharge Diagnosis / Problem: Acute exacerbation of Systolic and Diastolic Congestive Heart Failure Discharge Goals Goal(s): Decrease discomfort, Improve function, Increase independence, Improve disease control Activity Recommendations Activity Limitations: resume your previous activity Lifting Limitations: no more than 25 pounds, gradually increase as tolerated Exercise/Sports Limitations: gradually increase as tolerated May Resume Sexual Activity: when tolerated Shower/Bathe: no limitations Driving or Machine Use: no limitations . Instructions / Follow-Up Instructions / Follow-Up You were admitted to [facility] with increased swelling in the lower extremities and diagnosed with and acute exacerbation of congestive heart failure. During your stay here you were treated with intravenous diuretics, rate controlling medication, and other supportive treatment.. Imaging studies which were completed include Echocardiogram, and were abnormal showing congestive heart failure. You were also started on an antibiotic for a urinary tract infection: Continue taking ciprofloxacin 250 mg twice daily as prescribed for the next 5 days. Specific CHF Instructions: Call 911 and go to the Emergency Room if: * You have tightness or pain in your chest that does not go away with rest or Nitroglycerin * You are very short of breath even with rest Call your doctor if any of the following symptoms or problems start or get worse: * Shortness of breath or difficulty breathing * Wake up at night short of breath * Chest pain * Cough * Swelling of your hands, fee, or legs * More fatigued or tired with your normal activity * Palpitations - sudden fast heart beats WEIGHT * Weigh yourself every morning after using the bathroom. * Use the same scale. * Wear the same amount of clothing. * Write your weight down on your chart. * Call your doctor if you gain more than 2-3 pounds in 1-2 days. OR if you gain more than 5 lbs within 1 week. MEDICATIONS * Use this discharge instruction sheet for instructions. * Take your medications at the time your doctor ordered. * Do not skip a dose of your medicines. * If you miss a dose of medicine, take as soon as possible, but DO NOT DOUBLE A DOSE. * Read your medicine information when you get home. * Know all of the side effects of your medicine. * Call your doctor's office if you have any side effects. * Be sure all of your doctors know what medicine and herbs you take (including cold, flu, and herbal medicine). * Pain Medicine: If you do not get relief from your pain, please call your doctor for help. Take the following with you to your follow-up doctor appointments: * Weight Chart * Medication List * List of questions Do not drink excessive alcohol, beer or wine. Follow up: Follow up with your Primary Care Provider within 1 week, an appointment has been requested for you. Follow up with Cardiology with Ezekiel De La Rosa PA-C within 4 weeks on January 14, 2017 @ 10:30 AM Please check your INR level (warfarin level) at home THIS FRIDAY. Please report that number to your warfarin provider. It is important to check the INR as the cipro antibiotic can interact with the warfarin causing the number to rise. Current Hospital Diet Patient's current hospital diet: AHA Diet (Heart Healthy), Low Sodium Diet (2gm Na) Discharge Diet Recommended Diet: AHA Diet (Heart Healthy), Low Sodium Diet (2gm Na) Pending Studies Studies pending at discharge: no Medical Emergencies . Who to Call and When: Medical Emergencies: If at any time you feel your situation is an emergency, please call 911 immediately. . Non-Emergent Contact Non-Emergency issues call your: Primary Care Provider Call Non-Emergent contact if: you have a fever, temperature is above 100.5, your pain is not controlled, you have any medication questions If you develop chest pain, tightness, shortness of breath, increased swelling in your legs or if you have any other medications questions. . Past History Medical & Surgical History: (1) Combined systolic and diastolic congestive heart failure (2) Atrial fibrillation with RVR (3) Atrial fibrillation (4) Urinary tract infection . "Provider Documentation" section prepared by Winter Arzola. . VTE Core Measure Inpt VTE Proph given/why not?: Warfarin (Coumadin), T.E.D. Stockings, SCD's
[2016-12-23] MEDS: FUROSEMIDE INJ 40 MG in SYRINGE 0 ML IV SCH (09:53)
[2016-12-23] MEDS: LOSARTAN POTASSIUM 25 MG TAB PO SCH (09:53)
[2016-12-23] MEDS: DILTIAZEM HCL (TIAzac) 180 MG CAPCR PO SCH (09:54)
[2016-12-23] MEDS: METOPROLOL SUCC 50MG EXT REL TAB PO SCH (09:54)
[2016-12-23] MEDS: MULTIVITAMIN TAB PO SCH (09:54)
[2016-12-23] MEDS: POTASSIUM CHLORIDE 20 MEQ TABCR PO SCH (09:55)
[2016-12-23] MEDS: MAGNESIUM CHLORIDE 64MG DELAYED REL TAB PO SCH (09:55)
[2016-12-23] MEDS: POLYETHYLENE (MIRALAX) 17 GM PACK PO PRN (09:55)
[2016-12-23] MEDS ORDERED: CIPROFLOXACIN 250 MG TAB PO SCH (10:00)
--- NOTE | 2016-12-23 12:22 | CARDIOLOGY CONSULTATION REPORT ---
DATE OF CONSULTATION: 12/23/2016 REASON FOR CONSULTATION: 1. Acute on chronic combined systolic and diastolic congestive heart failure. 2. Cardiomyopathy with a left ventricular ejection fraction of 35-40%. 3. Grade 3 diastolic dysfunction. HISTORY OF PRESENT ILLNESS: Mrs. Hendricks is a very pleasant 81-year-old white female with a history of Chronic Atrial Fibrillation, Nonischemic Cardiomyopathy s/p Bi-V AICD placement, and chronic systolic CHF who was admitted acutely on 12/21/2016 after presenting with generalized weakness, nausea, leg edema and shortness of breath. Additionally, she was complaining of a UTI. On admission, she was noted to be in atrial fibrillation, had an elevated proBNP, and a chest x-ray confirmed the presence of congestive heart failure. The patient was treated with IV Lasix, and has had greater than 3 liter negative fluid balance. Her breathing is very close to baseline, and her leg edema is improved as well. The patient denies any chest pain, heaviness, tightness, pressure, or discomfort. She denies neck, jaw, back, or arm pain. Denies any orthopnea or PND. She further denies any palpitations, tachypalpitations, syncope, or near syncope. The patient admits to some medication noncompliance over the preceding months. Her was hospitalized for cancer treatment and they recently moved into a new place. During this timeframe, the patient was missing several doses of her medications, in particular her home Lasix dose. Additionally, she was stress eating, and taken in more salt than she normally would have. MEDICATIONS: 1. Coumadin 5 mg daily. 2. Diltiazem CD 108 mg daily. 3. Cozaar 25 mg daily. 4. Slo-Mag 64 mg daily. 5. Multivitamin daily. 6. Prednisone 9 mg daily. 7. Lasix 40 mg IV daily. 8. KCl 40 mEq daily. 9. Ceftriaxone 1 g daily. 10. Levothyroxine 150 mcg daily. 11. Toprol-XL 200 mg a day. 12. Tylenol p.r.n. 13. Maalox Max p.r.n. 14. Mild of magnesia p.r.n. 15. Zofran 4 mg IV q. 6 hours p.r.n. for nausea. 16. MiraLax powder 17 g daily as needed for constipation. ALLERGIES: NKDA. PAST MEDICAL HISTORY: 1. Chronic atrial fibrillation (rate controlled and on Coumadin). 2. 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 Please note that her EF increased from 25% to 55% and after having biventricular device placed in 2013. Her current LVEF is down, equally secondary to her medication noncompliance. 3. Chronic systolic and diastolic CHF. 4. Hypertension. 5. Chronic venous insufficiency. 6. Polymyalgia rheumatica, on chronic steroid therapy. 7. Normal coronary arteries on cardiac catheterization in 2000. 8. Rectocele and cystocele, currently with a UTI. 9. Hypothyroidism. SOCIAL HISTORY: The patient is and lives with her at the [facility] in [place], [place], this is a jail community. She is a lifelong nonsmoker. Does not use tobacco or tobacco products. Does not drink alcohol. FAMILY HISTORY: Noncontributory. PHYSICAL EXAMINATION: VITAL SIGNS: Temperature is 36.5 degrees Celsius, pulse is 85-90 and irregularly irregular, respiratory rate is 18 and unlabored, blood pressure is 157/93 and SpO2 is 95% on room air. I's and O's - minus 6185 mL total. Body weight is 93.7 kilograms. GENERAL: The patient is in no acute distress. HEENT: Head is atraumatic and normocephalic. EOMs intact. Sclerae are anicteric. Face is symmetric. No perioral cyanosis. Mucous membranes are tacky appearing. NECK: Without thyromegaly or adenopathy. Jugular venous pressure is approximately 8 cm lying in a 45 degree angle. Carotid upstrokes +2 bilaterally without bruits. CHEST AND LUNGS: Bilaterally diminished breath sounds in the bases, otherwise clear. CARDIOVASCULAR: S1 and S2 are irregularly irregular with a grade 1/6 systolic murmur heard best over the right second intercostal space. Also loud about the left sternal border. No diastolic murmurs appreciated. No obvious gallops or rubs. PMI is laterally displaced. No lifts, heaves, or thrills. No abdominal aortic or renal bruits. ABDOMINAL: Bowel sounds present. No masses, organomegaly or tenderness. EXTREMITIES: Without clubbing or cyanosis. There is trace pitting edema to the mid tibia, +1 ankle edema bilaterally. NEUROLOGIC: The patient is awake, alert and oriented. Pleasant and cooperative. Answers questions appropriately. Speech is clear. Normal movement in all 4 extremities. Gait pattern not assessed. IMAGING: Echocardiogram performed on 12/21/2016 reveals the followin. Mildly dilated LV with moderately reduced LV systolic function. 2. LVEF 35%-40% with hypokinesis of basal to mid inferior and inferolateral armenta, akinesis of the septum and anteroseptum. 3. Severely dilated left atrium. 4. Aortic valve sclerosis without stenosis. 5. Mild MR. 6. Mild to moderate TR. 7. Grade 3 diastolic dysfunction. 8. RVSP 30-40 mmHg. LABORATORY DATA: White blood cell count is 10.39, hemoglobin 15.6 g/dL, hematocrit 46.5%, platelet count is 245,000. Sodium is 142 mmol/L, potassium 3.5 mmol/L, BUN is 32 mg/dL and creatinine 1.20 mg/dL. Random glucose 170 mg/dL. Serum magnesium 2.3 mg/dL. ProBNP elevated 2757 pg/mL on admission. Troponin I levels are 0.355, 0.366, 0.165 and 0.017 ng/mL. TSH elevated at 4.510. ASSESSMENT: 1. Acute on chronic systolic and diastolic congestive heart failure, approaching euvolemic state. 2. Dilated Cardiomyopathy with a left ventricular ejection fraction of 35%-40% status post biventricular automated implantable cardioverter-defibrillator. 3. Chronic atrial fibrillation (on chronic Coumadin). 4. Hypertension. 5. Medication noncompliance. 6. Elevated Troponin I level -- likely a myocardial O2 supply / demand mismatch. PLAN: 1. The patient has had a good diuretic response during this hospitalization 2. Recommend that she go home on Lasix 40 mg by mouth daily, but she should increase this to 80 mg daily for weight gain of more than 3 pounds in a 24- to -48 hour period. 3. Monitor daily weights. 4. Maintain a 2 g low sodium diet. I have discussed this with her extensively. 5. I have reiterated the importance of medication compliance to prevent exacerbations of heart failure. 6. Continue on current Toprol-XL of 200 mg a day. 7. Continue Diltiazem CD 180 mg daily. 8. Continue Losartan. 9. Continue mcfp Coumadin with a goal INR of 2.0 to 3.0. 10. Continue potassium supplementation. 11. I have scheduled her for a followup visit with myself and Dr. Taylor on 01/14/2017 at 10:30 a.m. The patient verbalized understanding of our discussion today. We will continue to follow both as an inpatient and following discharge to home. CARDIOLOGY ATTENDING ADDENDUM (Dr. Taylor): Agree with above assessment and recommendations by Ezekiel De La Rosa PA-C. Outpatient follow-up scheduled as noted. MIHAI
--- NOTE | 2016-12-23 13:40 | Discharge Summary ---
Discharge Summary Date of Service Dec 23, 2016. (Alfreda Arzola PA-C) Discharge Summary Admission Date: Dec 21, 2016 at 07:57 Discharge Date: Dec 23, 2016 Discharge Disposition: Home Principal Diagnosis: Acute on Chronic Systolic CHF with Hypoxia Problems/Secondary Diagnoses: PMHx of Persistent Atrial Fibrillation, Nonischemic Cardiomyopathy, Systolic Congestive Heart Failure S/P Pacemaker, PMR, and HTN Immunizations: Have You Had Influenza Vaccine: Yes History of Tetanus Vaccine?: Yes History of Pneumococcal: Yes History of Hepatitis B Vaccine: No Procedures: ECHOCARDIOGRAM 12/21/16 Interpretation Summary * Name: CHRISTI UGARTE Study Date: 12/21/2016 08:43 AM BP: 147/108 mmHg * Patient Location: [facility] HR: 100 * : 1935 (M/d/yyyy) Gender: Female Height: 69 in * Age: 81 yrs Ethnicity: AR Weight: 225 lb * Ordering Physician: Daysi Richter * Referring Physician: MICKEY * Performed By: Rosa Isela Bernard RDCS * * Reason For Study: CHF * BSA: 2.2 m2 * -- Conclusions -- * The left ventricle is mildly dilated. * Ejection Fraction = 35-40%. * Left ventricular systolic function is moderately reduced. * The septum and anteroseptum are thin and akinetic. * The basal to mid inferior and inferolateral armenta are hypokinetic. * The left atrium is severely dilated. * Aortic valve sclerosis moderate, without significant aortic valvular stenosis. * Diastolic dysfunction, Grade III (restrictive pattern), consistent with markedly increased left atrial pressure. HEAD CT NONCONTRAST 12/21/16 CT DOSE: 614.27 mGy.cm HISTORY: Headache headache, nausea TECHNIQUE: Multiaxial CT images of the head were performed without the use of intravenous contrast. Comparison: None. Findings: The paranasal sinuses and mastoid air cells are clear. The calvarium and skull base are intact. The ventricles and sulci are within normal limits. There is no mass, hematoma, midline shift, or acute infarct. Age-related atrophy and chronic small vessel change Impression: No acute intracranial abnormality. Age-related change. Electronically signed by: Mike Manrique M.D. 12/21/2016 6:51 AM Dictated Date/Time: 12/21/2016 6:50 AM The status of this report is Signed. CHEST ONE VIEW PORTABLE 12/21/16 CLINICAL HISTORY: nausea dyspnea COMPARISON STUDY: 12/24/2013 FINDINGS: Congestive heart failure. Moderate cardiomegaly. Implantable cardiac pacemaker/defibrillator. IMPRESSION: Congestive heart failure Electronically signed by: Mike Manrique M.D. 12/21/2016 6:47 AM Dictated Date/Time: 12/21/2016 6:47 AM The status of this report is Signed. Consultations: Cardiology (Alfreda Arzola, ART) Problems/Secondary Diagnoses: acute hypoxic respiratory failure 2nd to acute/chronic systolic CHF - resolved. e. coli UTI. hypothyroidism. (Aj Arnett MD) Medication Reconciliation New Medications: Ciprofloxacin (Cipro) 250 Mg Tab 1 TAB PO BID for 5 Days, #10 TAB Continued Medications: Calcium Carbonate-Cholecalcife (Caltrate 600+D) 1 Tab Tab 1 TAB PO DAILY Diltiazem Hcl Ext Rel (Tiazac) 180 Mg Capcr 180 MG PO DAILY, CAP Furosemide (Lasix) 40 Mg Tab 40 MG PO DAILY PRN for SWELLING, TAB Furosemide (Lasix) 40 Mg Tab 40 MG PO DAILY, TAB Levothyroxine Sodium (Levothyroxine Sodium) 150 Mcg Tab 150 MCG PO sundays, 3 Refills Losartan Potassium (Cozaar) 25 Mg Tab 25 MG PO DAILY, TAB Magnesium Chloride (Slow-Mag Tab) 64 Mg Tabcr 64 MG PO DAILY, TAB Multivitamin (Multivitamin) Tab 1 TAB PO DAILY, TAB Potassium Chloride (Klor-Con M20) 20 Meq Tabcr 20 MEQ PO DAILY Potassium Chloride (Klor-Con M20) 20 Meq Tabcr 20 MEQ PO DAILY PRN for when increasing lasix Prednisone (Prednisone) 1 Mg Tab 9 MG PO DAILY, TAB Discharge Exam Subjective Pt evaluation today including: conversation w/ patient, conversation w/ family , physical exam, chart review, lab review, review of studies Pain: None PO Intake: Good Voiding: hernandez catheter in place The patient was seen and examined this morning. Pt reports doing very well today and hopes to go home. She denies any acute complaints. Her breathing is good, swelling is significantly improved in her lower legs, and she has been up and walking better today compared to before. Discussion was held regarding medication compliance with lasix. She is agreeable to this and will keep better track with a calendar and pill box, and weighing herself every day. ROS: She denies any fever, chills, sweats, chest pain, flutter, palpitations, shortness of breath, abdominal pain, n/v/d/c, fatigue, weakness, or difficulty with ambulation. She has not had a BM since being here but states when she goes home she'll have one. Objective Vital Signs Date Time Temp Pulse Resp B/P (MAP) Pulse Ox O2 Delivery O2 Flow Rate FiO2 12/23/16 04:01 36.6 82 18 144/91 (108) 98 Room Air 12/23/16 04:00 98 Room Air 12/23/16 00:23 36.4 84 18 121/65 (83) 96 Room Air 12/23/16 00:00 96 Room Air 12/22/16 20:00 98 Room Air 12/22/16 20:00 36.5 75 133/69 (90) 98 Room Air 12/22/16 16:00 Room Air 12/22/16 15:29 36.6 69 16 133/70 (91) 91 Room Air 12/22/16 12:00 Room Air 12/22/16 11:45 36.7 87 26 112/66 (81) 95 Room Air 12/22/16 08:19 36.8 85 23 124/68 (86) 97 Nasal Cannula 2.0 12/22/16 08:00 Nasal Cannula 1.0 Physical Exam General Appearance: WD/WN, no apparent distress, + pertinent finding ( overweight) Eyes: PERRL, EOMI ENT: hearing grossly normal, pharynx normal Neck: supple, no JVD Respiratory/Chest: chest non-tender, lungs clear, normal breath sounds, no respiratory distress Cardiovascular: no JVD, + tachycardia (regular rhythm), + systolic murmur Abdomen: non tender Extremities: non-tender, no pedal edema, no calf tenderness Neurologic/Psychiatric: alert, normal mood/affect, oriented x 3 Skin: normal color, warm/dry (Alfreda Arzola PA-C) Hospital Course H&P per Daysi Richter MD. History of Present Illness Source: patient, family Ms. Ugarte is an 81 y/o female with PMHx of Persistent Atrial Fibrillation, Nonischemic Cardiomyopathy, Systolic Congestive Heart Failure S/P Pacemaker, PMR , and HTN who presents to the ED by EMS for nausea and weakness x 2-3 days. Family members at bedside report she has been generally weak over these past couple days but was waxing and waning. Also complains of a headache that was initially 7/10 that is located in the forehead and around her eyes but is currently improving. She takes daily Lasix 40 mg daily and utilizes when necessary dosing. Over the past couple days she reports needing to use her when necessary dosing. She is undergoing prednisone tapers for PMR and currently at prednisone 9 mg daily. Due to chronic steroid use she is unsure of her dry weight. She denies fever/chills, chest pain, SOB, emesis, abdominal pain, dysuria, melena/hematochezia. In the ED, patient noted to be 87% on room air and was placed on 4 L NC with adequate oxygenation. Patient does not utilize oxygen at home. She is afebrile and without leukocytosis. CXR consistent with acute CHF findings. BNP 2757. UA with 4+ bacteria and positive nitrite with culture pending. She will be admitted to telemetry for acute on chronic systolic CHF. Physical Exam Vital Signs Date Time Temp Pulse Resp B/P (MAP) Pulse Ox O2 Delivery O2 Flow Rate FiO2 12/21/16 08:08 96 12/21/16 07:30 103 15 157/114 95 Nasal Cannula 4.0 12/21/16 07:00 104 29 156/99 93 12/21/16 06:42 103 31 164/107 93 Nasal Cannula 4.0 12/21/16 06:00 98 39 177/93 91 12/21/16 05:33 177/122 12/21/16 05:00 99 27 173/126 93 12/21/16 04:56 92 Nasal Cannula 2.0 12/21/16 04:55 92 Nasal Cannula 2.0 12/21/16 04:54 111 12/21/16 04:42 36.5 105 32 173/102 Room Air 12/21/16 04:42 87 Room Air General Appearance: WD/WN, no apparent distress Head: normocephalic, atraumatic Eyes: sclerae normal ENT: hearing grossly normal Neck: supple, no JVD, trachea midline Respiratory/Chest: no respiratory distress, no accessory muscle use, + crackles (mild R base) Cardiovascular: no gallop, no murmur, + irregularly irregular Abdomen/GI: normal bowel sounds, non tender, soft Back: normal inspection, no CVA tenderness Extremities/Musculoskelatal: no calf tenderness, + swelling (1-2+ bilat pitting edema) Neurologic/Psych: alert, oriented x 3 Skin: normal color, warm/dry Hospital Course: Ms. Ugarte is an 81 y/o female with PMHx of Persistent Atrial Fibrillation, Nonischemic Cardiomyopathy, Systolic Congestive Heart Failure S/P Pacemaker, PMR , and HTN who presents to the ED by EMS for nausea and weakness x 2-3 days. She will be admitted to telemetry for acute on chronic systolic CHF. Acute on Chronic Systolic CHF with Hypoxia: likely due to poor compliance, steroid use - responded well to aggressive Lasix 40mg IV BID- now cont Lasix 40mg IV daily, follow response, 5 liters out, weight going down - will resume Lasix 40 mg PO daily at home upon discharge. Will provide CHF instructions for taking extra 40 mg daily to total 80 mg, if she gains more than 1-2 lbs in a day, or more than 5lbs within 1 week. - Will need cardiology follow up within 4 weeks. - Scheduled 01/14/17 at 10:30 with Ezekiel De La Rosa - fluid restrict to 1500cc/day, follow weight and I/O's - continue Metoprolol succinate 200mg daily, diltiazem 180 mg daily - Cardiology consulted: appreciate recs - patient needs heart failure clinic referral, poor compliance, needs educated on fluid restriction and daily weights - discussion was held at bedside - repeat Echo shows 35-40% Hypertensive Urgency: resolved - Likely related to fluid overload - BP still remains slightly elevated but is improving with diuresis - Diltiazem 180 mg daily, Metoprolol 200 mg QAM, and holding losartan UTI, E. coli - Ucx is pansensitive. - Rocephin 1 g IV daily x 3 days, will start on cipro 250 mg BID x 7 days. Persistent Atrial Fibrillation S/P Pacer: - INR subtherapeutic at 1.5 - Warfarin 5 mg daily and trend INR - Metoprolol XL 200 mg BID, Diltiazem PMR: STABLE - can d/c stress dose Hydrocortisone today - resume Prednisone 9mg daily today Hyperthyroidism: STABLE - Synthroid 150 mcg daily DVT Prophylaxis: Warfarin Code Status: FULL RESUSCITATION Disposition: keep on tele, PT/OT today,discharge home today. Total Time Spent: Greater than 30 minutes This includes examination of the patient, discharge planning, medication reconciliation, and communication with other providers. (Alfreda Arzola PA-C) Attending Attestation and Discharge Note: Pt seen/examined, chart reviewed, and care plan d/w DEDRICK Arzola on day of discharge. I agree w/ the looney components of her discharge documentation. 81yo female with medication noncompliance and known systolic CHF who presented with weakness, nausea, and dyspnea. Had evidence of acute hypoxic resp failure 2nd to acute/chronic CHF along with UTI. She was diuresed during her stay with resolution of pulmonary symptoms. Treated for pansensitive e. coli UTI with antibiotic therapy. Repeat echo was obtained; results as above. Counseled on importance of med compliance, etc. Discharge exam: gen - nad neck - no JVD heart - RRR, s1, s2 lungs - CTA b/l, no rales abd - soft, NT, no HSM ext - no edema Aj Arnett MD (Aj Arnett MD) Discharge Instructions Please refer to the electronic Patient Visit Report (Discharge Instructions) for additional information. (Alfreda Arzola PA-C) Follow-Up Follow up with your Primary Care Provider within 1 week, an appointment has been requested for you. Follow up with Cardiology with Ezekiel De La Rosa PA-C within 4 weeks on January 14, 2017 @ 10:30 AM (Alfreda Arzola PA-C) Additional Copies To Celia Will D.O.; Ezekiel De La Rosa,P.A.
[2016-12-23] MEDS: WARFARIN SOD 5 MG TAB PO SCH (16:00)
[2017-03-13] MEDS ORDERED: WARF5TAB7 PO (08:13)
[2017-03-13] MEDS ORDERED: METO100T44 PO (08:13)
[2017-03-13] MEDS ORDERED: DILT180C53 PO (08:13)
[2017-03-13] MEDS ORDERED: PRD/1 PO (08:13)
[2017-03-13] MEDS ORDERED: CEPH500C2 PO (11:44)
== END 2016-12-23 16:41 | disposition home or self-care (01) | DRG 292 ==
LOC: EDBD 04:38 → C.EDB 04:40 → C.2E 07:57 → ENRESERV 08:07
PROVIDERS: ADMIT Internal Medicine; ATTEND Internal Medicine
DX: I50.23 Acute on chronic systolic (congestive) heart failure (principal); N39.0 Urinary tract infection, site not specified; I42.9 Cardiomyopathy, unspecified; R09.02 Hypoxemia; I48.91 Unspecified atrial fibrillation; E05.90 Thyrotoxicosis, unspecified without thyrotoxic crisis or storm; I10 Essential (primary) hypertension; I16.0 Hypertensive urgency; M35.3 Polymyalgia rheumatica; B96.20 Unspecified Escherichia coli [E. coli] as the cause of diseases classified elsewhere; Z91.19 Patient's noncompliance with other medical treatment and regimen; Z95.0 Presence of cardiac pacemaker; Z79.52 Long term (current) use of systemic steroids

== ENCOUNTER → 2017-02-10 | Outpatient (CLI) | payer OTHER ==
[~2017-02-10] MED LIST changes: -ALPR0.25 PO; -B-COTAB18 PO; +CEPH500C2 PO; -CMD/25 PO; +DILT180C53 PO; +FRS/40 PO; +LEVO150T9 PO; +LOSA1TAB PO; -MAGNTAB17 PO; -METO-479 PO; +METO1TAB69 PO; +SLWMEC PO; +WARF5TAB7 PO
[2017-02-14 05:09] LABS: ANTI-CENTROMERE AB <1.0 NEG AI (<1.0 NEG); ANTI-SS-A <1.0 NEG AI (<1.0 NEG); ANTI-SS-B <1.0 NEG AI (<1.0 NEG); DNA ds CRITHIDIA NEGATIVE (NEGATIVE); Sm Antibody <1.0 NEG AI (<1.0 NEG)
== END | disposition home or self-care (01) ==
LOC: C.LAB1850 12:55
PROVIDERS: ATTEND Internal Medicine Rheumatology
DX: M35.3 Polymyalgia rheumatica (principal); Z79.52 Long term (current) use of systemic steroids; R70.0 Elevated erythrocyte sedimentation rate

== ENCOUNTER → 2017-03-11 | Outpatient (CLI) | payer OTHER ==
[2017-03-11 12:17] LABS: HEMATOCRIT 38.1 % (37-47); MEAN CELL VOLUME 92.7 fL (80-100); MEAN CORPUSCULAR HEMOGLOBIN 30.7 pg (25-34); MEAN CORPUSCULAR HGB CONC 33.1 g/dl (32-36); MEAN PLATELET VOLUME 11.7 fL (7.4-10.4); PLATELET COUNT 247 K/uL (130-400); RED BLOOD COUNT 4.11 M/uL (4.2-5.4)
[2017-03-11 12:24] LABS: PROTHROMBIN TIME (PATIENT) 21.5 SECONDS (9.0-12.0)
[2017-03-11 12:49] LABS: BLOOD UREA NITROGEN 21 mg/dl (7-18); BUN/CREATININE RATIO 22.6 (10-20); CALCIUM 9.3 mg/dl (8.5-10.1); CARBON DIOXIDE 28 mmol/L (21-32); CHLORIDE 107 mmol/L (98-107); CREATININE 0.92 mg/dl (0.60-1.20); GLUCOSE 82 mg/dl (70-99); SODIUM 142 mmol/L (136-145)
== END | disposition home or self-care (01) ==
LOC: C.LABBFT 08:38
PROVIDERS: ATTEND Internal Medicine Cardiovascular Disease
DX: Z01.818 Encounter for other preprocedural examination (principal)

== ENCOUNTER → 2017-03-13 | Day surgery (SDC) | payer OTHER ==
[~2017-03-13] VITALS: Ht 170.2 cm; Wt 93.0 kg
[~2017-03-13] MED LIST changes: +ACETAMINOPHEN 325 MG TAB PO PRN; +FENTANYL CITRATE INJ 50 MCG/1 ML 2 ML VIAL ONE; +MIDAZOLAM HCL 1 MG/ML 2ML VIAL ONE
[2017-03-13 08:03] VITALS: BP 176/89; PULSE 90; TEMP 36.3; O2SAT 96; Ht 170.2 cm; Wt 93.0 kg
--- NOTE | 2017-03-13 08:14 | Procedure Note ---
Pre-Mod Sedation Assessment General Date of Moderate Sedation: Mar 13, 2017. Review Cardiovascular: + irregularly irregular Abdomen: normal bowel sounds Lungs: lungs clear Pre-Sedation Airway Assessment Smoking Status: Never Smoker Procedure Planning Contraindications-for Mod Sed: None Yes Notes The planned sedation has been discussed with the patient and consent obtained. I have identified the patient, determined the appropriateness of sedation and have assessed the patient immediately prior to the procedure. All medicine(s) and interventions are by my order.
--- NOTE | 2017-03-13 09:37 | [facility] Operative Report ---
Operative Report Operative Date Mar 13, 2017. Pre-Operative Diagnosis Atrial fibrillation with a rapid ventricular response Post-Operative Diagnosis same Procedure(s) Performed AV genet ablation Surgeon Dr. Vincent Estimated Blood Loss 10 cc Findings Successful creation of complete heart block using two 60 second RF applications at the AV junction Specimens None Anesthesia local with sedation Complication(s) None Disposition [facility] recovery Description of Procedure Patient is brought to the laboratory on the morning of 03/13/2017 being nothing by mouth after midnight. She was identified in the laboratory, connected to the recording apparatus and prepped and draped in the standard sterile manner. The right groin was anesthetized with 1% lidocaine local anesthetic and an SR 0 ablation sheath was advanced to position at the AV junction. Her ICD was programmed to VVI 30 mode. A steerable 8 mm tip ablation catheter was advanced under fluoroscopic Guidance to the AV junction. The His bundle was identified and the catheter was withdrawn slightly from the His location. RF energy was applied to the catheter with creation of complete heart block. Complete heart block ensued during the first RF application, a second 60 second RF application was administered in the same location. The ICD was programmed back to his 60 bpm VVI mode. The patient remained in the laboratory for 30 minutes, the ICD was temporarily turned down to 30 bpm and there was no evidence of AV conduction. The ICD was then programmed back to initial settings (from prior to the beginning of the case). The catheter was removed from the groin and hemostasis obtained by firm pressure at the puncture site. Patient tolerated the procedure well, she will be monitored in the [facility] recovery room and planned discharge. I attest to the content of the Intraoperative Record and any orders documented therein. Any exceptions are noted below.
--- NOTE | 2017-03-13 09:37 | Procedure Note ---
Post-Mod Sedation Assessment General Date of Moderate Sedation Mar 13, 2017. Vital Signs: Vital Signs Past 12 Hours Date Time Temp Pulse Resp B/P (MAP) Pulse Ox O2 Delivery O2 Flow Rate FiO2 03/13/17 09:26 63 16 170/79 (109) 100 Mask 2 03/13/17 08:03 36.3 90 16 176/89 96 Room Air Review - Discharge Criteria Vital Signs Stable: Yes Alert/Oriented/Conversant: Yes Returned to Baseline Mental St: Yes Nausea Absent/Minimal: Yes Pain/Discomfort/Absent/Minimal: Yes Normal/Baseline Respirations: Yes Active Bleeding?: No
--- NOTE | 2017-03-13 11:47 | Discharge Instructions ---
Discharge Instructions Date of Service Mar 13, 2017. Admission Reason for Admission: Atrial fibrillation with rapid ventricular response Discharge Discharge Diagnosis / Problem: AV genet ablation Discharge Goals Goal(s): Improve disease control Activity Recommendations Activity Limitations: resume your previous activity Lifting Limitations: no more than 10 pounds (for 2 days) . Instructions / Follow-Up Instructions / Follow-Up ACTIVITY RECOMMENDATIONS: * You may shower/bathe in 1 day. MEDICATIONS: * Tylenol, as directed, for discomfort. SPECIAL CARE INSTRUCTIONS: * If bleeding occurs, apply direct pressure to area for 5 minutes. * Call your doctor if you have severe pain, fever, drainage or bleeding at site. * Keep dressing on and dry for 48 hours then remove. * Keep any scheduled doctor's appointment. SKIN IRRITATION: * You may experience some redness and/or swelling in the area where radiation was administered. If any skin irritation occurs, please contact your family physician. FOLLOW UP VISIT: Keep any scheduled doctor appointments. Current Hospital Diet Patient's current hospital diet: AHA Diet (Heart Healthy) Discharge Diet Recommended Diet: AHA Diet (Heart Healthy) Procedures Procedures Performed: AV genet ablation Pending Studies Studies pending at discharge: no Medical Emergencies . Who to Call and When: Medical Emergencies: If at any time you feel your situation is an emergency, please call 911 immediately. . Non-Emergent Contact Non-Emergency issues call your: Primary Care Provider . . "Provider Documentation" section prepared by Ankit Vincent. . VTE Core Measure Inpt VTE Proph given/why not?: Warfarin (Coumadin)
[2017-03-13 12:00] VITALS: BP 159/49; PULSE 60; O2SAT 95
== END | disposition home or self-care (01) ==
LOC: C.EP 06:25
PROVIDERS: ATTEND Internal Medicine Cardiovascular Disease
DX: I42.9 Cardiomyopathy, unspecified (principal); I50.42 Chronic combined systolic (congestive) and diastolic (congestive) heart failure; I48.91 Unspecified atrial fibrillation; Z79.01 Long term (current) use of anticoagulants; I10 Essential (primary) hypertension; E03.9 Hypothyroidism, unspecified; M85.80 Other specified disorders of bone density and structure, unspecified site; M35.3 Polymyalgia rheumatica; Z98.49 Cataract extraction status, unspecified eye; Z90.49 Acquired absence of other specified parts of digestive tract; Z90.710 Acquired absence of both cervix and uterus; Z82.49 Family history of ischemic heart disease and other diseases of the circulatory system; Z83.1 Family history of other infectious and parasitic diseases

== ENCOUNTER → 2017-06-04 | Outpatient (CLI) | payer OTHER ==
[~2017-06-04] MED LIST changes: -ACETAMINOPHEN 325 MG TAB PO PRN; -CEPH500C2 PO; -DILT-113 PO; -DILT180C53 PO; -FENTANYL CITRATE INJ 50 MCG/1 ML 2 ML VIAL ONE; +METO100T44 PO; -METO1TAB69 PO; -MIDAZOLAM HCL 1 MG/ML 2ML VIAL ONE
== END | disposition home or self-care (01) ==
LOC: C.LAB1850 11:10
PROVIDERS: ATTEND Internal Medicine Rheumatology
DX: M35.3 Polymyalgia rheumatica (principal); R29.898 Other symptoms and signs involving the musculoskeletal system; M15.9 Polyosteoarthritis, unspecified

== ENCOUNTER → 2017-09-02 | Outpatient (CLI) | payer OTHER | END | disposition home or self-care (01) | LOC: C.LAB1850 10:42 | PROVIDERS: ATTEND Internal Medicine Rheumatology | DX: M35.3 Polymyalgia rheumatica (principal); Z79.52 Long term (current) use of systemic steroids ==

== ENCOUNTER 2017-10-02 13:24 | Emergency (ER) | payer OTHER ==
[~2017-10-02] VITALS: Ht 172.7 cm; Wt 94.1 kg
[~2017-10-02 13:24] MED LIST changes: -CALC-354 PO; -MULT-506 PO
[2017-10-02 13:37] VITALS: TEMP 36.3; Ht 172.7 cm; Wt 94.1 kg
--- NOTE | 2017-10-02 15:01 | EMERGENCY ROOM VISIT NOTE ---
History Report prepared by Rodrigo: Diego Bustos Under the Supervision of: Dr. Rogelio Weeks M.D. First contact with patient: 14:43 Chief Complaint: DIZZY Stated Complaint: DIZZY Nursing Triage Summary: triage note: pt reports she has been dizzy x 2 days "i thought it would go away but it hasn't." History of Present Illness The patient is an 82 year old female who presents to the Emergency Room with complaints of waxing and waning dizziness that started 3 days ago. She states that at times, the room spins in her head, and the dizziness worsens with certain movements. The patient says that when she first noticed it, she was in bed, and the fan was moving around to corners of the room. She notes that she gets nauseated when the dizziness gets bad. The patient states that when it gets bad, she feels like she will fall over, but has not fallen yet. She adds that she has not felt like she was going to pass out or lose consciousness. The patient states that this dizziness has never happened to her before. She notes that she called her family doctor, and was told to come here. The patient denies any headaches, chest pain, shortness of breath, or vomiting. The patient is on Warfarin, and her last INR level was within normal limits on September 10. Source of History: patient Onset: 3 days ago Position: other (global) Symptom Intensity: room spinning Quality: other (dizziness) Timing: waxes/wanes Modifying Factors (Worsening): other (certain movements) Associated Symptoms: + nausea, No LOC, No chest pain, No SOB, No vomiting Note: Associated symptoms: Denies recent falls. Review of Systems See HPI for pertinent positives and negatives. A total of ten systems were reviewed and were otherwise negative. 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 (3) Systolic congestive heart failure Family History Hypertension Social History Smoking Status: Never Smoker Drug Use: none Marital Status: Occupation Status: retired Current/Historical Medications Scheduled Calcium Carbonate-Cholecalcife (Caltrate 600+D), 1 TAB PO DAILY Furosemide (Lasix), 40 MG PO DAILY Levothyroxine Sodium (Levothyroxine Sodium), 150 MCG PO DAILY Losartan Potassium (Cozaar), 25 MG PO DAILY Magnesium Chloride (Slow-Mag Tab), 64 MG PO DAILY Meclizine HCl (Meclizine HCl), 1 TAB PO TID Metoprolol Succinate (Toprol Xl), 200 MG PO DAILY Multivitamin (Multivitamin), 1 TAB PO DAILY Potassium Chloride (Klor-Con M20), 20 MEQ PO DAILY Potassium Chloride (Klor-Con M20), 20 MEQ PO DAILY Prednisone (Prednisone), 5 MG PO DAILY Warfarin Sodium (Warfarin Sodium), 2.5 MG PO Q2D Warfarin Sodium (Warfarin Sodium), 5 MG PO Q2D Allergies Coded Allergies: No Known Drug Allergy (Verified Allergy, Unknown, ., 12/21/16) Physical Exam Vital Signs Date Time Temp Pulse Resp B/P (MAP) Pulse Ox O2 Delivery O2 Flow Rate FiO2 10/02/17 16:48 89 16 198/91 98 Room Air 10/02/17 13:37 36.3 72 18 175/107 96 Room Air Physical Exam Physical Exam GENERAL: She is oriented to person, place, and time. She appears well- developed and well-nourished. She does not appear distressed. ____ HENT: Exam performed. Head: Normocephalic and atraumatic. Right Ear: External ear normal. No mastoid tenderness. Left Ear: External ear normal. No mastoid tenderness. Mouth/Throat: The oropharynx is clear and moist. No trismus in the jaw. No dental abscesses or uvula swelling. No oropharyngeal exudate or tonsillar abscesses. ____ EYES: Conjunctivae and EOM are normal. Pupils are equal, round, and reactive to light. Right eye exhibits no discharge. Left eye exhibits no discharge. No scleral icterus. Funduscopic exam shows no AV nicking or papilledema bilaterally.____ NECK: Normal range of motion. Neck supple. No JVD present. No spinous process tenderness present. No carotid bruit present. No rigidity. No tracheal deviation and normal range of motion present. No Brudzinski's sign and no Kernig 's sign noted. ____ CV: Normal rate, regular rhythm, normal heart sounds and intact distal pulses. There is no peripheral edema. Palpable radial pulses bue. ____ PULM/CHEST: Effort normal and breath sounds normal. No respiratory distress. No stridor. She has no wheezes. She has no rales. Chest Wall: She exhibits no tenderness. ____ ABD: The abdomen is soft. Bowel sounds are normal. She has no distension. No mass is present. There is no tenderness. There is no rebound, no guarding, no Kaba's sign and no tenderness at McBurney's point. Rovsig negative MUSC/SKEL: Normal range of motion. There is no peripheral edema, tenderness or deformity. LYMPH: No cervical adenopathy. ____ NEURO: She is alert and oriented to person, place, and time. She has normal strength. No cranial nerve deficit or sensory deficit. Coordination and gait normal. GCS eye subscore is 4. GCS verbal subscore is 5. GCS motor subscore is 6. Cerebellar tests wnl. ____ SKIN: Skin is warm and dry. She is not diaphoretic. ____ PSYCH: She has a normal mood and affect. She behavior is normal. Judgment and thought content normal. ____ Medical Decision & Procedures ER Provider Diagnostic Interpretation: CT: Radiology results as stated below per my review and radiologist interpretation HEAD WITHOUT CONTRAST (CT) CT DOSE: 700.35 mGycm HISTORY: Mental status change dizziness on coumadin TECHNIQUE: Multiaxial CT images of the head were performed without the use of intravenous contrast. A dose lowering technique was utilized adhering to the principles of ALARA. Comparison: None. Findings: The paranasal sinuses and mastoid air cells are clear. The calvarium and skull base are intact. The ventricles and sulci are within normal limits. There is no mass, hematoma, midline shift, or acute infarct. Mild chronic small vessel change. This is stable compared to the prior study. Impression: No acute intracranial abnormality. Age-related chronic small vessel change. The above report was generated using voice recognition software. It may contain grammatical, syntax or spelling errors. Electronically signed by: Mike Manrique M.D. 10/02/2017 3:41 PM Dictated Date/Time: 10/02/2017 3:40 PM Laboratory Results 10/02/17 15:15 Red Blood Count 4.54, Mean Corpuscular Volume 91.2, Mean Corpuscular Hemoglobin 30.2, Mean Corpuscular Hemoglobin Concent 33.1, Mean Platelet Volume 10.8, Neutrophils (%) (Auto) 74.8, Lymphocytes (%) (Auto) 13.0, Monocytes (%) (Auto) 10.2, Eosinophils (%) (Auto) 1.2, Basophils (%) (Auto) 0.2, Neutrophils # (Auto ) 7.29, Lymphocytes # (Auto) 1.27, Monocytes # (Auto) 0.99, Eosinophils # (Auto ) 0.12, Basophils # (Auto) 0.02 10/02/17 15:15 Test 10/02/17 15:15 White Blood Count 9.75 K/uL (4.8-10.8) Red Blood Count 4.54 M/uL (4.2-5.4) Hemoglobin 13.7 g/dL (12.0-16.0) Hematocrit 41.4 % (37-47) Mean Corpuscular Volume 91.2 fL (80-100) Mean Corpuscular Hemoglobin 30.2 pg (25-34) Mean Corpuscular Hemoglobin Concent 33.1 g/dl (32-36) Platelet Count 291 K/uL (130-400) Mean Platelet Volume 10.8 fL (7.4-10.4) Neutrophils (%) (Auto) 74.8 % Lymphocytes (%) (Auto) 13.0 % Monocytes (%) (Auto) 10.2 % Eosinophils (%) (Auto) 1.2 % Basophils (%) (Auto) 0.2 % Neutrophils # (Auto) 7.29 K/uL (1.4-6.5) Lymphocytes # (Auto) 1.27 K/uL (1.2-3.4) Monocytes # (Auto) 0.99 K/uL (0.11-0.59) Eosinophils # (Auto) 0.12 K/uL (0-0.5) Basophils # (Auto) 0.02 K/uL (0-0.2) RDW Standard Deviation 46.0 fL (36.4-46.3) RDW Coefficient of Variation 13.9 % (11.5-14.5) Immature Granulocyte % (Auto) 0.6 % Immature Granulocyte # (Auto) 0.06 K/uL (0.00-0.02) Prothrombin Time 17.9 SECONDS (9.0-12.0) Prothromb Time International Ratio 1.7 (0.9-1.1) Activated Partial Thromboplast Time 29.5 SECONDS (21.0-31.0) Partial Thromboplastin Ratio 1.1 Anion Gap 7.0 mmol/L (3-11) Est Creatinine Clear Calc Drug Dose 54.8 ml/min Estimated GFR () 64.6 Estimated GFR (Non- 55.8 BUN/Creatinine Ratio 17.4 (10-20) Calcium Level 9.7 mg/dl (8.5-10.1) Laboratory results reviewed by me Medications Administered Medications (Trade) Dose Ordered Sig/Momo Route Start Time Stop Time Status Last Admin Dose Admin Meclizine HCl (Antivert Tab) 12.5 mg ONE STAT PO 10/02/17 15:22 10/02/17 15:23 DC 10/02/17 15:28 12.5 MG ED Course 1450: The patient was evaluated in room B6. A complete history and physical exam was performed. 1522: Antivert Tab 12.5 mg PO. 1610: I reevaluated the patient and her vitals are stable and she feels better after receiving Antivert. Her CT of the head was negative, and her labs were within normal limits. Her INR was subtherapeutic and she will follow-up with PCP about that. DISCHARGE - Plan of care discussed with patient and questions answered. The patient was given both verbal and printed discharge instructions. The patient verbalized understanding and ability to comply. The patient is to seek outpatient follow up as noted in the discharge instructions. The patient verbalized understanding and ability to comply. The patient is discharged in stable condition. The patient was instructed to return for worsening symptoms. Medical Decision I reevaluated the patient and her vitals are stable and she feels better after receiving Antivert. Her CT of the head was negative, and her labs were within normal limits. Her INR was subtherapeutic and she will follow-up with PCP about that. DISCHARGE - Plan of care discussed with patient and questions answered. The patient was given both verbal and printed discharge instructions. The patient verbalized understanding and ability to comply. The patient is to seek outpatient follow up as noted in the discharge instructions. The patient verbalized understanding and ability to comply. The patient is discharged in stable condition. The patient was instructed to return for worsening symptoms. Medication Reconcilliation Current Medication List: was personally reviewed by me Blood Pressure Screening Patient's blood pressure: Elevated blood pressure Blood pressure disposition: Referred to PCP Impression Primary Impression: Vertigo Scribe Attestation The scribe's documentation has been prepared under my direction and personally reviewed by me in its entirety. I confirm that the note above accurately reflects all work, treatment, procedures, and medical decision making performed by me. The chart was completed utilizing [employer] Speech voice recognition software. Grammatical errors, random word insertions, pronoun errors, and incomplete sentences are an occasional consequence of this system due to software limitations, ambient noise, and hardware issues. Any formal questions or concerns about the content, text, or information contained within the body of this dictation should be directly addressed to the physician for clarification. Departure Information Dispostion Home / Self-Care Prescriptions Meclizine HCl (Meclizine HCl) 12.5 Mg Tab 1 TAB PO TID for Dizziness or Vertigo for 10 Days, #30 TAB Prov: Rogelio Weeks M.D. 10/02/17 Referrals Celia WillDAdamOAdam (PCP) Ankit Vincent M.D. Patient Instructions ED [facility] Vertigo, [facility]
[2017-10-02] MEDS ORDERED: MECLIZINE HCL 25 MG TAB PO STA (15:22)
[2017-10-02 15:28] LABS: BASO % 0.2 %; BASO ABS # 0.02 K/uL (0-0.2); EOS % 1.2 %; EOS ABS # 0.12 K/uL (0-0.5); HEMATOCRIT 41.4 % (37-47); HEMOGLOBIN 13.7 g/dL (12.0-16.0); IG# 0.06 K/uL (0.00-0.02); LYMPH ABS # 1.27 K/uL (1.2-3.4); MEAN CELL VOLUME 91.2 fL (80-100); MEAN CORPUSCULAR HEMOGLOBIN 30.2 pg (25-34); MEAN CORPUSCULAR HGB CONC 33.1 g/dl (32-36); MEAN PLATELET VOLUME 10.8 fL (7.4-10.4); MONO % 10.2 %; MONO ABS # 0.99 K/uL (0.11-0.59); NEUT % 74.8 %; NEUT ABS # 7.29 K/uL (1.4-6.5); PLATELET COUNT 291 K/uL (130-400); RED CELL DISTRIBUTION WIDTH CV 13.9 % (11.5-14.5); WHITE BLOOD COUNT 9.75 K/uL (4.8-10.8)
[2017-10-02 15:38] LABS: INR 1.7 (0.9-1.1); PTT PATIENT 29.5 SECONDS (21.0-31.0)
--- NOTE | 2017-10-02 15:42 | DIAGNOSTIC IMAGING REPORT ---
HEAD WITHOUT CONTRAST (CT) CT DOSE: 700.35 mGycm HISTORY: Mental status change dizziness on coumadin TECHNIQUE: Multiaxial CT images of the head were performed without the use of intravenous contrast. A dose lowering technique was utilized adhering to the principles of ALARA. Comparison: None. Findings: The paranasal sinuses and mastoid air cells are clear. The calvarium and skull base are intact. The ventricles and sulci are within normal limits. There is no mass, hematoma, midline shift, or acute infarct. Mild chronic small vessel change. This is stable compared to the prior study. Impression: No acute intracranial abnormality. Age-related chronic small vessel change. The above report was generated using voice recognition software. It may contain grammatical, syntax or spelling errors. Electronically signed by: Mike Manrique M.D. 10/02/2017 3:41 PM Dictated Date/Time: 10/02/2017 3:40 PM
[2017-10-02 15:45] LABS: CALCIUM 9.7 mg/dl (8.5-10.1); CREATININE 0.95 mg/dl (0.60-1.20)
[2017-10-02] MEDS ORDERED: WARF-280 PO (16:08)
[2017-10-02] MEDS ORDERED: WARF-246 PO (16:08)
[2017-10-02] MEDS ORDERED: METO200T31 PO (16:08)
[2017-10-02] MEDS ORDERED: MECL1TAB40 PO (16:19)
[2017-10-02 16:48] VITALS: BP 198/91; PULSE 89; O2SAT 98
[2017-10-02] MEDS ORDERED: MULT-506 PO (19:23)
[2017-10-02] MEDS ORDERED: CALC-354 PO (19:23)
== END 2017-10-02 16:50 | disposition home or self-care (01) ==
LOC: C.EDB 13:26
DX: R42 Dizziness and giddiness (principal); I48.91 Unspecified atrial fibrillation; I50.9 Heart failure, unspecified; Z82.49 Family history of ischemic heart disease and other diseases of the circulatory system; Z79.01 Long term (current) use of anticoagulants; Z51.81 Encounter for therapeutic drug level monitoring

== ENCOUNTER 2019-05-05 22:20 | Inpatient (IN) ==
[2019-05-05 22:50] LABS: Basophils # (auto) 0.02 K/uL (0-0.2); Basophils % (auto) 0.2 %; Eosinophils # (auto) 0.02 K/uL (0-0.5); Eosinophils % (auto) 0.2 %; Hematocrit (blood only) 41.5 % (37-47); Hemoglobin 13.6 g/dL (12.0-16.0); Immature Granulocytes # (auto) 0.04 K/uL (0.00-0.02); Immature Granulocytes % (auto) 0.4 %; Lymphocytes # (auto) 1.16 K/uL (1.2-3.4); Lymphocytes % (auto) 10.8 %; Mean Corpuscular Hemoglobin 29.8 pg (25-34); Mean Corpuscular Hgb Conc 32.8 g/dL (32-36); Mean Corpuscular Volume 90.8 fL (80-100); Mean Platelet Volume 10.9 fL (7.4-10.4); Monocytes % (auto) 6.5 %; Neutrophils # (auto) 8.81 K/uL (1.4-6.5); Neutrophils % (auto) 81.9 %; Platelet Count 265 K/uL (130-400); RDW Coefficient of Variation 13.5 % (11.5-14.5); RDW Standard Deviation 44.2 fL (36.4-46.3); Red Blood Count 4.57 M/uL (4.2-5.4); White Blood Count 10.75 K/uL (4.8-10.8)
[2019-05-05 22:59] LABS: Prothrombin Time 19.8 Seconds (9.0-12.0)
[2019-05-05] MEDS ORDERED: DiphenhydrAMINE HCL 50 MG/ML VIAL IV STA (23:06)
[2019-05-05] MEDS ORDERED: PROCHLORPERAZINE 1 ML IV ONE (23:06)
[2019-05-05] MEDS ORDERED: SODIUM CHLORIDE 0.9% 500 ML IV ONE (23:06)
[2019-05-05] MEDS ORDERED: FAMOTIDINE 20MG IV PUSH 20 MG/5 ML SYR IV STA (23:06)
[2019-05-05 23:07] LABS: Alanine Aminotransferase 19 U/L (12-78); Albumin Level 3.5 gm/dl (3.4-5.0); Aspartate Aminotransferase 20 U/L (15-37); BUN Creatinine Ratio 18.8 (10-20); Bilirubin Direct 0.2 mg/dl (0-0.2); Blood Urea Nitrogen 18 mg/dl (7-18); Calcium 10.3 mg/dl (8.5-10.1); Carbon Dioxide 24 mmol/L (21-32); Chloride 104 mmol/L (98-107); Creatinine Clr Calc Pharmacy 54.1 ml/min; Est GFR (African American) 64.6; Est GFR (Non-African American) 55.7; Glucose 158 mg/dl (70-99); Lipase 117 U/L (73-393); Potassium 4.1 mmol/L (3.5-5.1); Sodium 138 mmol/L (136-145)
[2019-05-05 23:10] LABS: Albumin Globulin Ratio 0.9 (0.9-2); Alkaline Phosphatase 96 U/L (45-117); Bilirubin,Total 0.9 mg/dl (0.2-1); Globulin 4.1 gm/dl (2.5-4.0); Phosphorus 2.5 mg/dl (2.5-4.9); Total Protein 7.6 gm/dl (6.4-8.2); Troponin I < 0.015 ng/ml (0-0.045)
[2019-05-06] MEDS ORDERED: PROCHLORPERAZINE 1 ML IV ONE (00:37)
--- NOTE | 2019-05-06 01:30 | Emergency Department Note ---
Entered by Nathaly Benitez acting as a scribe for Franco Loco MD History of Present Illness General Chief complaint: Abdominal Pain Stated complaint: AB PAIN Time Seen by Provider: 05/05/19 22:23 Source: patient Limitations: no limitations History of Present Illness Onset (ago): hour(s) (this morning ) Location: abdomen Severity: severe Pain Consistency: + constant Maximum Pain Intensity: 7 Quality: + other (pain) Relieved By: + other (lying down) Associated symptoms: + headaches; no chest pain, no fever/chills and no shortness of breath The patient is an 84 year old female who presents to the Emergency Room with complaints of severe, constant abdominal pain that began this morning. She notes that lying down provides some relief. The patient complains of nausea/vomiting. She states that she had a soft BM this morning, but she notes that she had a normal BM this afternoon. The patient complains of a persistent headache. She denies any chest pain, fevers, and SOB. The patient notes that she always wears diapers for incontinence, stating this has been a problem for years. Home Medications Home Medications Medication Instructions Recorded Confirmed Type Caltrate 600 plus D 1 tab PO DAILY 05/11/18 05/06/19 History losartan 25 mg PO DAILY 05/11/18 05/06/19 History magnesium chloride 64 mg PO DAILY 05/11/18 05/06/19 History metoprolol succinate 200 mg PO QPM 05/11/18 05/06/19 History multivitamin 1 tab PO DAILY 05/11/18 05/06/19 History prednisone 5 mg PO DAILY 05/11/18 05/06/19 History warfarin [Coumadin] 2.5 mg PO 5XWK 05/11/18 05/06/19 History warfarin [Coumadin] 5 mg PO 2XWK 05/11/18 05/06/19 History meclizine 12.5 mg tablet 12.5 mg PO TID PRN #20 tab 02/09/19 05/06/19 History potassium chloride ER 20 mEq 20 meq PO DAILY 02/09/19 05/06/19 History tablet,extended release levothyroxine 150 mcg tablet 150 mcg PO DAILY #90 tab 02/26/19 05/06/19 Rx furosemide 40 mg tablet 40 mg PO .COMPLEX #180 tab 04/20/19 05/06/19 Rx Allergies Allergy/AdvReac Type Severity Reaction Status Date / Time No Known Allergies Allergy Verified 05/06/19 01:11 Past Med/Surg History Medical History LBBB (left bundle branch block) Hypertension Hypothyroid Polymyalgia rheumatica Biventricular implantable cardioverter-defibrillator in situ (2013) Breast cancer s/p left lumpectomy Atrial fibrillation Cardiomyopathy Combined systolic and diastolic congestive heart failure PMR (polymyalgia rheumatica) Acute metabolic encephalopathy (Resolved) Plantar fasciitis (Resolved) UTI (urinary tract infection) (Resolved) Surgical History S/P cholecystectomy S/P thyroidectomy Family History Other Heart disease Social History Preferred Language: French Communication Ability: Effective Mat Weaver Required: No Beliefs That Will Affect Care: None marital status: Current Living Situation: Family Feels Safe at Home: Yes Smoking Status: Unknown if ever smoked Hx Alcohol Use: No Hx Substance Use: No Review of Systems See HPI for pertinent positives & negatives. and A total of 10 systems reviewed and were otherwise negative Physical Exam Vital Signs Vital Signs - 24 hr 05/05/19 22:28 05/05/19 22:32 05/05/19 23:17 Temperature 36.7 C Temperature Source Oral Sepsis Recent Fever Within 48 Hours No Sepsis Action Taken by Nursing No Action Required Pulse Rate 64 Pulse Rate [Right Finger] 61 Respiratory Rate 22 21 Respiratory Effort / Characteristics Non-Labored Spontaneous Respiratory Depth Normal Blood Pressure 247/83 H Blood Pressure [Left Arm] Blood Pressure Mean 137 Blood Pressure Mean [Left Arm] Pulse Oximetry 97 97 92 Oxygen Delivery Method Room Air Room Air Room Air 05/05/19 23:35 05/06/19 01:14 Temperature Temperature Source Sepsis Recent Fever Within 48 Hours Sepsis Action Taken by Nursing Pulse Rate Pulse Rate [Right Finger] 61 Respiratory Rate 26 H Respiratory Effort / Characteristics Respiratory Depth Blood Pressure Blood Pressure [Left Arm] 221/99 H 184/78 H Blood Pressure Mean Blood Pressure Mean [Left Arm] 139 113 Pulse Oximetry 97 Oxygen Delivery Method Room Air GENERAL: Awake, alert, uncomfortable-appearing, in no distress HENT: Normocephalic, atraumatic. Oropharynx uwith dry mucous membranes and otherwise unremarkable. EYES: Normal conjunctiva. Sclera non-icteric. NECK: Supple. No nuchal rigidity. FROM. No JVD. RESPIRATORY: CTAB. CARDIAC: Regular rate, normal rhythm. Extremities warm and well perfused. Pulses equal. ABDOMEN: Soft, non-distended. Mild epigastric discomfort without discrete tenderness. No rebound or guarding. On re-evaluation after CT patient has tender left inguinal hernia that is non-reducible. RECTAL: Deferred. MUSCULOSKELETAL: Chest examination reveals no tenderness. The back is symmetrical on inspection without obvious abnormality. There is no CVA tenderness to palpation. No joint edema. LOWER EXTREMITIES: Calves are equal size bilaterally and non-tender. No edema. No discoloration. NEURO: Normal sensorium. No sensory or motor deficits noted. SKIN: No rash or jaundice noted. Course 2240: The patient was evaluated in room B11B. A complete history and physical exam was performed. 2356: I reevaluated the patient. 0052: The patient was reassessed by me. 0123: I spoke with Dr. Booker, [facility] hospitalist, about the patients case. He will further evaluate the patient. Administered Medications Famotidine 20 mg/ Syringe 5 mls @ 2.5 mls/min IV Q12H [facility] Stop: 06/05/19 06:59 Last Admin: 05/07/19 19:44 Dose: Not Given Documented by: [id number] Admin: 05/07/19 07:47 Dose: 2.5 mls/min Documented by: [id number] Admin: 05/06/19 19:41 Dose: 2.5 mls/min Documented by: [id number] Admin: 05/06/19 07:35 Dose: 2.5 mls/min Documented by: [id number] Warfarin Sodium (Coumadin) 5 mg PO MoFr@1600 [facility] Stop: 06/06/19 15:59 Last Admin: 05/07/19 15:40 Dose: 5 mg Documented by: [id number] Discontinued Medications Bupivacaine HCl (Marcaine 0.5% Mpf) Confirm Administered Dose 30 ml .ROUTE .STK- MED ONE Stop: 05/06/19 04:43 Last Admin: 05/06/19 05:23 Dose: 24 ml Documented by: [id number] Diphenhydramine HCl (Benadryl) 12.5 mg IV NOW STA Stop: 05/05/19 23:07 Last Admin: 05/05/19 23:21 Dose: 12.5 mg Documented by: [id number] Hydralazine HCl (Hydralazine Hcl) Confirm Administered Dose 20 mg .ROUTE .STK- MED ONE Stop: 05/06/19 03:11 Last Admin: 05/06/19 07:05 Dose: Not Given Documented by: [id number] Hydralazine HCl (Hydralazine Hcl) 10 mg IV Q4H PRN PRN Reason: Blood Pressure - High Stop: 06/05/19 05:36 Last Admin: 05/07/19 05:47 Dose: 10 mg Documented by: [id number] Admin: 05/06/19 19:41 Dose: 10 mg Documented by: [id number] Admin: 05/06/19 11:44 Dose: 10 mg Documented by: [id number] Hydromorphone HCl (Dilaudid) 0.2 mg IV Q3H PRN PRN Reason: Severe Pain Stop: 05/20/19 05:44 Last Admin: 05/07/19 05:47 Dose: 0.2 mg Documented by: [id number] Famotidine (Pepcid 20mg Iv Push) 20 mg in 5 mls @ 2.5 mls/min IV NOW STA Stop: 05/05/19 23:07 Last Admin: 05/05/19 23:21 Dose: 2.5 mls/min Documented by: [id number] Prochlorperazine (Compazine) 1 mls @ 1 mls/min IV ONE ONE Stop: 05/05/19 23:07 Last Admin: 05/05/19 23:21 Dose: 1 mls/min Documented by: [id number] Sodium Chloride (Nss) 500 mls @ 999 mls/hr IV .Q31M ONE Stop: 05/05/19 23:36 Last Infusion: 05/06/19 00:17 Dose: 0 mls/hr Documented by: [id number] Admin: 05/05/19 23:22 Dose: 999 mls/hr Documented by: [id number] Prochlorperazine (Compazine) 1 mls @ 1 mls/min IV ONE ONE Stop: 05/06/19 00:38 Last Admin: 05/06/19 01:15 Dose: 1 mls/min Documented by: [id number] Potassium Chloride/Sodium Chloride (Normal Saline W/20 Meq Kcl) 20 meq in 1,000 mls @ 80 mls/hr IV .[id number] [facility] Stop: 06/05/19 06:59 Last Infusion: 05/07/19 14:28 Dose: 0 mls/hr Documented by: [id number] Admin: 05/07/19 07:44 Dose: 80 mls/hr Documented by: [id number] Infusion: 05/07/19 07:44 Dose: 80 mls/hr Documented by: [id number] Admin: 05/06/19 19:41 Dose: 80 mls/hr Documented by: [id number] Infusion: 05/06/19 19:41 Dose: 80 mls/hr Documented by: [id number] Admin: 05/06/19 07:35 Dose: 80 mls/hr Documented by: [id number] Piperacillin Sod/Tazobactam (Sod 3.375 gm/ Dextrose) 115 mls @ 28.75 mls/hr IV Q8H MARCELA; Protocol Stop: 05/16/19 07:59 Last Admin: 05/07/19 16:51 Dose: Not Given Documented by: [id number] Infusion: 05/07/19 12:02 Dose: 0 mls/hr Documented by: [id number] Admin: 05/07/19 07:47 Dose: 28.8 mls/hr Documented by: [id number] Infusion: 05/07/19 03:19 Dose: 0 mls/hr Documented by: [id number] Admin: 05/06/19 23:36 Dose: 28.8 mls/hr Documented by: [id number] Infusion: 05/06/19 20:06 Dose: 0 mls/hr Documented by: [id number] Admin: 05/06/19 16:04 Dose: 28.8 mls/hr Documented by: [id number] Cosigned by: [id number] Infusion: 05/06/19 11:46 Dose: 0 mls/hr Documented by: [id number] Admin: 05/06/19 07:35 Dose: 28.8 mls/hr Documented by: [id number] Hydrocortisone Sodium (Succinate 100 mg/ Syringe) 2 mls @ 4 mls/min IV Q8H [facility] Stop: 06/05/19 06:59 Last Admin: 05/07/19 07:44 Dose: 4 mls/min Documented by: [id number] Admin: 05/06/19 23:37 Dose: 4 mls/min Documented by: [id number] Admin: 05/06/19 15:12 Dose: 4 mls/min Documented by: [id number] Cosigned by: [id number] Admin: 05/06/19 07:36 Dose: 4 mls/min Documented by: [id number] Sodium Chloride (Nss) 250 mls @ 999 mls/hr IV .Q16M ONE Stop: 05/07/19 08:26 Last Infusion: 05/07/19 09:05 Dose: 0 mls/hr Documented by: [id number] Admin: 05/07/19 08:39 Dose: 999 mls/hr Documented by: [id number] Influenza Virus Vaccine (Fluzone High-Dose Pf) 0.5 ml IM .ONCE ONE Stop: 05/06/19 09:31 Last Admin: 05/06/19 15:26 Dose: 0.5 ml Documented by: [id number] Cosigned by: [id number] Metoprolol Tartrate (Lopressor) 5 mg IV Q4 [facility] Stop: 06/05/19 05:36 Last Admin: 05/06/19 07:06 Dose: Not Given Documented by: [id number] Piperacillin Sod/Tazobactam Sod (Zosyn) Confirm Administered Dose 4.5 gm .ROUTE .STK-MED ONE Stop: 05/06/19 02:26 Last Admin: 05/06/19 07:05 Dose: Not Given Documented by: [id number] Pneumococcal Polyvalent Vaccine (Pneumovax-23) 25 mcg IM .ONCE ONE Stop: 05/06/19 09:31 Last Admin: 05/06/19 15:21 Dose: 25 mcg Documented by: [id number] Cosigned by: [id number] Medical Decision Making Differential Diagnosis Etiologies such as biliary colic, cholecystitis, hepatitis, perihepatitis, pancreatitis, cardiac disease, pancreatitis, gastritis, peptic ulcer disease, appendicitis, ovarian cyst, ovarian torsion, ectopic , pelvic inflammatory disease, cystitis, diverticulitis, mesenteric ischemia, inflammatory bowel disease, ileus, bowel obstruction, aortic pathology, shingles, as well as others were considered. Medical Records Attestation: I reviewed the patient's medical records. Home Medications Current Medication List: was personally reviewed by me Laboratory Data Attestation: I reviewed the patient's lab results. Result diagrams: 05/07/19 06:02 05/07/19 06:02 Lab Results 05/05/19 05/05/19 05/05/19 Range/Units 22:38 22:38 22:38 WBC 10.75 (4.8-10.8) K/uL RBC 4.57 (4.2-5.4) M/uL Hgb 13.6 (12.0-16.0) g/dL Hct 41.5 (37-47) % MCV 90.8 (80-100) fL MCH 29.8 (25-34) pg MCHC 32.8 (32-36) g/dL RDW Std Deviation 44.2 (36.4-46.3) fL RDW Coeff of Snow 13.5 (11.5-14.5) % Plt Count 265 (130-400) K/uL MPV 10.9 H (7.4-10.4) fL Immature Gran % (Auto) 0.4 % Neut % (Auto) 81.9 % Lymph % (Auto) 10.8 % Dubois % (Auto) 6.5 % Eos % (Auto) 0.2 % Baso % (Auto) 0.2 % Immature Gran # (Auto) 0.04 H (0.00-0.02) K/uL Neut # (Auto) 8.81 H (1.4-6.5) K/uL Lymph # (Auto) 1.16 L (1.2-3.4) K/uL Dubois # (Auto) 0.70 H (0.11-0.59) K/uL Eos # (Auto) 0.02 (0-0.5) K/uL Baso # (Auto) 0.02 (0-0.2) K/uL PT 19.8 H (9.0-12.0) Seconds INR 2.0 H (0.9-1.1) Sodium 138 (136-145) mmol/L Potassium 4.1 (3.5-5.1) mmol/L Chloride 104 (98-107) mmol/L Carbon Dioxide 24 (21-32) mmol/L Anion Gap 9.0 (3-11) BUN 18 (7-18) mg/dl Creatinine 0.94 (0.6-1.2) mg/dl Est Cr Clr Drug Dosing 54.1 ml/min Est GFR ( Amer) 64.6 Est GFR (Non-Af Amer) 55.7 BUN/Creatinine Ratio 18.8 (10-20) Glucose 158 H (70-99) mg/dl Calcium 10.3 H (8.5-10.1) mg/dl Phosphorus 2.5 (2.5-4.9) mg/dl Magnesium 2.0 (1.8-2.4) mg/dl Total Bilirubin 0.9 (0.2-1) mg/dl Direct Bilirubin 0.2 (0-0.2) mg/dl AST 20 (15-37) U/L ALT 19 (12-78) U/L Alkaline Phosphatase 96 (45-117) U/L Troponin I < 0.015 (0-0.045) ng/ml Total Protein 7.6 (6.4-8.2) gm/dl Albumin 3.5 (3.4-5.0) gm/dl Globulin 4.1 H (2.5-4.0) gm/dl Albumin/Globulin Ratio 0.9 (0.9-2) Lipase 117 (73-393) U/L Imaging Data Attestation: I personally reviewed and interpreted this imaging study as follows: My Impression: XR CHEST 1V: Cardiomegaly without overt pulmonary edema or focal infiltrates. Radiologist's Impression: Radiology results as stated below per my review and the radiologist's interpretation: STATRAD: CT ABDOMEN & PELVIS Without Contrast: Small left inguinal hernia containing a small amount of small bowel for example axial 76 with associated moderate length of fluid-containing dilated bowel leading to the hernia consistent with degree of associated obstruction Correlate for focal tenderness and reducibility AICD No free air Status post cholecystectomy Lobular area of peripheral calcification subcapsular left lobe of the liver measuring around 2.7 cm axial 16 Diverticulosis Normal caliber appendix without secondary signs Very small pelvic free fluid Small amount of air in the mostly collapsed bladder may be from recent instrumentation, clinical correlate Radiologist: Bryce Middleton M.D. Study ready at 01:38 and initial results transmitted at 01:59 ECG Data Attestation: I personally reviewed and interpreted this ECG as follows: Indication: abdominal pain Rate (beats per minute): 65 Rhythm: other (v-paced rhythm) ECG Findings: Other (no ectopy, no acute ischemia, QTC 499) Blood Pressure Blood Pressure Findings: Elevated blood pressure Blood Pressure Disposition: further management by hospitalist YULIANA Osuna The patient is a pleasant 84-year-old woman with a past medical history of A. fi b on Coumadin, CHF status post AICD/PPM, left bundle branch block, polymyalgia rheumatica who presents emergency department with acute onset upper abdominal pain with nausea and vomiting per hpi. On arrival patient is uncomfortable but no acute distress, afebrile with stable vital signs. The patient appears clinically dry. She has mild epigastric discomfort without discrete tenderness. EKG demonstrates a paced rhythm. Chest x-ray with cardiomegaly but no overt pulmonary edema or infiltrates. WBC, H/H and platelets within normal limits. Chemistry without acidosis. Electrolytes and LFTs unremarkable. Troponin negative/undetectable. Lipase within normal limits. CT abdomen pelvis with IV contrast was initially ordered however upon having the image performed the patient's IV infiltrated and was unsuccessful. Therefore repeat attempt at IV placement was quite difficult but ultimately obtained under ultrasound guidance by IV team. Given the tenuous nature of the patient's IV access will proceed with CT without contrast at this time. The patient still remained uncomfortable despite receiving antiemetics plan will be for admission. Case was discussed with Dr. Booker, [facility] hospitalist, who will evaluate the patient for admission. Subsequently, the patient's CT abdomen pelvis demonstrated likely left inguinal hernia causing obstruction per preliminary stat read report. I did reevaluate the patient following this and did appreciate a tender left inguinal hernia which was nonreducible despite placing the patient in Trendelenburg with gentle pressure. I did update Dr. Booker, the admitting hospitalist. I discussed the case with general surgery, Dr. Belkys concepcion, who evaluate the patient at the bedside and reviewed the imaging via STATRAD (CT results occurred during downtime.), Decision was made to take the patient to the operating room. Dr. Booker was updated. She was given IV Zosyn upon CT results. Impression & Plan Small bowel obstruction, Incarcerated inguinal hernia, Nausea & vomiting, Epigastric abdominal pain Critical Care Time Critical Care Time: Yes Total Critical Care Time: 45 I have personally spent greater than 45 minutes of critical care time in the direct management of this patient. This includes bedside care, interpretation of diagnostic studies, and testing, discussion with consultants, patient, and family members, and other required patient management activities. This 45 minutes is in excess of all separately billable procedures. Discharge Plan Visit Data *Final* Discharge Date/Time: 05/06/19 01:40 Chief Complaint: Abdominal Pain Stated Complaint: AB PAIN ED Provider: Franco Loco Discharge Problem: Small bowel obstruction, Incarcerated inguinal hernia, Nausea & vomiting, Epigastric abdominal pain Patient Disposition: Still a Patient Discharge Problem: Nausea & vomiting Qualifiers: Vomiting type: unspecified Vomiting Intractability: intractable Qualified Co de(s): R11.2 - Nausea with vomiting, unspecified The scribe's documentation has been prepared under my direction and personally reviewed by me in its entirety. I confirm that the note above accurately reflects all work, treatment, procedures, and medical decision making performed by me.
--- NOTE | 2019-05-06 01:41 | History & Physical Report ---
Date of Service May 06, 2019 Assessment & Plan (1) Intractable nausea and vomiting: Abdominal pain with intractable nausea and vomiting/small bowel obstruction associated with small left inguinal hernia- NPO. NSS + KCl 20 mEq at 80 mils per hour. Zofran 4 mg IV every 6 hours as needed. Famotidine 20 mg IV every 12 hours Acetaminophen 1000 mg IV every 8 hours PRN mild pain or temperature. Zosyn 4.5 g IV every 8 hours Patient is being taken to the OR now by Dr. Anaya. Present on Admission?: Yes (2) Abdominal pain: See above Present on Admission?: Yes (3) Polymyalgia rheumatica: Hold prednisone [address] on stress dose hydrocortisone 100 mg IV every 8 hours. Present on Admission?: Yes (4) Hypertension: Hypertension/atrial fibrillation/cardiomyopathy/biventricular AICD/long- term use of anticoagulants/left bundle branch block- Hold furosemide, losartan, magnesium chloride, metoprolol succinate, potassium chloride and warfarin. Lopressor 5 mg IV every 4 hours as needed systolic blood pressure greater than 160 heart rate greater than 70. Hydralazine 10 mg IV every 4 hours as needed systolic blood pressure greater than 160 if heart rate less than or equal to 70 INR presently is 2.0, and will be corrected in the OR. Present on Admission?: Yes (5) LBBB (left bundle branch block): See above Present on Admission?: Yes (6) Biventricular implantable cardioverter-defibrillator in situ: See above Present on Admission?: Yes (7) jail (current) use of anticoagulants: Holding warfarin as noted above, and will convert IV heparin if n.p.o. for prolonged interval Present on Admission?: Yes (8) Atrial fibrillation: As above.. Present on Admission?: Yes (9) Cardiomyopathy: See above Present on Admission?: Yes (10) Hypothyroid: Hold levothyroxine 150 mcg daily, if n.p.o. for more than a day or 2, will place on IV. Present on Admission?: Yes (11) Breast cancer: Noted Present on Admission?: Yes (12) Small bowel obstruction: As noted. Present on Admission?: Yes History of Present Illness Chief Complaint: Patient presents to the emergency department with severe generalized abdominal pain, nausea and vomiting that began earlier in the morning prior to arrival. Primary Care Provider: Celia Will DO The patient is a 84-year-old female with a past medical history including polymyalgia rheumatica, hypertension, hypothyroidism, biventricular AICD, breast cancer, atrial fibrillation, cardiomyopathy, left bundle branch block on chronic anticoagulation with warfarin, who presents to the emergency department with the above symptoms. She has not had any recent travels or sick exposures. She reports that she had a bowel movement early this morning and then later on in the afternoon. She also reports a headache that began today as well. Allergies Allergy/AdvReac Type Severity Reaction Status Date / Time No Known Allergies Allergy Verified 05/06/19 01:11 Home Medications Home Medications Medication Instructions Recorded Confirmed Type Caltrate 600 plus D 1 tab PO DAILY 05/11/18 05/06/19 History losartan 25 mg PO DAILY 05/11/18 05/06/19 History magnesium chloride 64 mg PO DAILY 05/11/18 05/06/19 History metoprolol succinate 200 mg PO QPM 05/11/18 05/06/19 History multivitamin 1 tab PO DAILY 05/11/18 05/06/19 History prednisone 5 mg PO DAILY 05/11/18 05/06/19 History warfarin [Coumadin] 2.5 mg PO 5XWK 05/11/18 05/06/19 History warfarin [Coumadin] 5 mg PO 2XWK 05/11/18 05/06/19 History meclizine 12.5 mg tablet 12.5 mg PO TID PRN #20 tab 02/09/19 05/06/19 History potassium chloride ER 20 mEq 20 meq PO DAILY 02/09/19 05/06/19 History tablet,extended release levothyroxine 150 mcg tablet 150 mcg PO DAILY #90 tab 02/26/19 05/06/19 Rx furosemide 40 mg tablet 40 mg PO .COMPLEX #180 tab 04/20/19 05/06/19 Rx Past Med/Surg History Medical History LBBB (left bundle branch block) Hypertension Hypothyroid Polymyalgia rheumatica Biventricular implantable cardioverter-defibrillator in situ (2013) Breast cancer s/p left lumpectomy Atrial fibrillation Cardiomyopathy Combined systolic and diastolic congestive heart failure PMR (polymyalgia rheumatica) Acute metabolic encephalopathy (Resolved) Plantar fasciitis (Resolved) UTI (urinary tract infection) (Resolved) Surgical History S/P cholecystectomy S/P thyroidectomy Family History Other Heart disease Social History Preferred Language: Ukrainian Communication Ability: Effective Curbstone Setter Required: Yes and No Beliefs That Will Affect Care: None marital status: Current Living Situation: Spouse and Rehab Feels Safe at Home: Yes Smoking Status: Never smoker Hx Alcohol Use: No Hx Substance Use: No Review of Systems Review of Systems: The patient denies chest pain, palpitations, shortness of breath, dyspnea on exertion, cough, lower extremity swelling, sore throat, fevers, chills, sweats, blood in urine or stool, dysuria, urinary frequency or urgency, memory loss, loss of consciousness, rash, abnormal bruising or bleeding, imba prashant, focal weakness, numbness or tingling in arms or legs, generalized arthralgias or myalgias, back or neck pain, or night sweats. The review of systems is otherwise negative other than for that already noted above, and at least 10 systems have been reviewed. Physical Exam Physical Exam: The patient is awake, alert and oriented 3, normocephalic and atraumatic, lying in bed and in mild distress secondary to abdominal discomfort HEENT--PERRL, EOMI, mucous membranes and oropharynx dry. Neck--supple. No JVD. No bruits. Thyroid normal, trachea midline, no adenopathy. Heart--normal S1 and S2. No murmurs, rubs or gallops. Lungs--clear bilaterally, no respiratory distress, no accessory muscle use. Abdomen--decreased bowel sounds. Soft. Nondistended. Mild epigastric tenderness, and LLQ/groin. Extremities--no cyanosis or clubbing. No edema. Dermatologic--normal skin turgor, no rash. Neurologic--cranial nerves II through XII grossly intact. Rheumatologic--normal range of motion. Psychiatric--normal affect. Results & Data Vital Signs (Past 12 Hours) Vital Signs Temp Pulse Pulse Resp BP BP Pulse Ox 05/06/19 01:14 61 26 H 184/78 H 97 05/05/19 23:35 221/99 H 05/05/19 23:17 61 21 92 05/05/19 22:32 97 05/05/19 22:28 98.1 F 64 22 247/83 H 97 Laboratory Results Laboratory Results WBC 10.75 K/uL (4.8-10.8) 05/05/19 22:38 RBC 4.57 M/uL (4.2-5.4) 05/05/19 22:38 Hgb 13.6 g/dL (12.0-16.0) 05/05/19 22:38 Hct 41.5 % (37-47) 05/05/19 22:38 MCV 90.8 fL (80-100) 05/05/19 22:38 MCH 29.8 pg (25-34) 05/05/19 22:38 MCHC 32.8 g/dL (32-36) 05/05/19 22:38 RDW Std Deviation 44.2 fL (36.4-46.3) 05/05/19 22:38 RDW Coeff of Snow 13.5 % (11.5-14.5) 05/05/19 22:38 Plt Count 265 K/uL (130-400) 05/05/19 22:38 MPV 10.9 fL (7.4-10.4) H 05/05/19 22:38 Immature Gran % (Auto) 0.4 % 05/05/19 22:38 Neut % (Auto) 81.9 % 05/05/19 22:38 Lymph % (Auto) 10.8 % 05/05/19 22:38 Maury % (Auto) 6.5 % 05/05/19 22:38 Eos % (Auto) 0.2 % 05/05/19 22:38 Baso % (Auto) 0.2 % 05/05/19 22:38 Immature Gran # (Auto) 0.04 K/uL (0.00-0.02) H 05/05/19 22:38 Neut # (Auto) 8.81 K/uL (1.4-6.5) H 05/05/19 22:38 Lymph # (Auto) 1.16 K/uL (1.2-3.4) L 05/05/19 22:38 Maury # (Auto) 0.70 K/uL (0.11-0.59) H 05/05/19 22:38 Eos # (Auto) 0.02 K/uL (0-0.5) 05/05/19 22:38 Baso # (Auto) 0.02 K/uL (0-0.2) 05/05/19 22:38 PT 19.8 Seconds (9.0-12.0) H 05/05/19 22:38 INR 2.0 (0.9-1.1) H 05/05/19 22:38 Sodium 138 mmol/L (136-145) 05/05/19 22:38 Potassium 4.1 mmol/L (3.5-5.1) 05/05/19 22:38 Chloride 104 mmol/L (98-107) 05/05/19 22:38 Carbon Dioxide 24 mmol/L (21-32) 05/05/19 22:38 Anion Gap 9.0 (3-11) 05/05/19 22:38 BUN 18 mg/dl (7-18) 05/05/19 22:38 Creatinine 0.94 mg/dl (0.6-1.2) 05/05/19 22:38 Est Cr Clr Drug Dosing 54.1 ml/min 05/05/19 22:38 Est GFR ( Amer) 64.6 05/05/19 22:38 Est GFR (Non-Af Amer) 55.7 05/05/19 22:38 BUN/Creatinine Ratio 18.8 (10-20) 05/05/19 22:38 Glucose 158 mg/dl (70-99) H 05/05/19 22:38 Calcium 10.3 mg/dl (8.5-10.1) H 05/05/19 22:38 Phosphorus 2.5 mg/dl (2.5-4.9) 05/05/19 22:38 Magnesium 2.0 mg/dl (1.8-2.4) 05/05/19 22:38 Total Bilirubin 0.9 mg/dl (0.2-1) 05/05/19 22:38 Direct Bilirubin 0.2 mg/dl (0-0.2) 05/05/19 22:38 AST 20 U/L (15-37) 05/05/19 22:38 ALT 19 U/L (12-78) 05/05/19 22:38 Alkaline Phosphatase 96 U/L (45-117) 05/05/19 22:38 Troponin I < 0.015 ng/ml (0-0.045) 05/05/19 22:38 Total Protein 7.6 gm/dl (6.4-8.2) 05/05/19 22:38 Albumin 3.5 gm/dl (3.4-5.0) 05/05/19 22:38 Globulin 4.1 gm/dl (2.5-4.0) H 05/05/19 22:38 Albumin/Globulin Ratio 0.9 (0.9-2) 05/05/19 22:38 Lipase 117 U/L (73-393) 05/05/19 22:38 Code Status & VTE Plan Code Status Full code VTE Prophylaxis Plan VTE Prophylaxis will be ordered: Yes PG Care Time/CCT Total # of Minutes Spent Total Time Spent with Patient: Total time spent is greater than 50% in coordination of care (as documented) at patient's floor/unit and/or counseling patient: (1) Atrial fibrillation Atrial fibrillation type: chronic Qualified Code(s): I48.2 - Chronic atrial fibrillation (2) Cardiomyopathy Cardiomyopathy type: unspecified Qualified Code(s): I42.9 - Cardiomyopathy, unspecified
[2019-05-06] MEDS ORDERED: ACETAMINOPHEN 1000 MG/100 ML IV IV PRN (01:46)
[2019-05-06] MEDS ORDERED: PIPERACILLIN/TAZOBACTAM 4.5 GM/120ML D5W ONE (02:25)
[2019-05-06] MEDS ORDERED: HydrALAZINE HCL 20 MG/ML VIAL ONE (03:10)
--- NOTE | 2019-05-06 03:57 | Anesthesiology Consultation ---
Date of Service May 06, 2019 Assessment & Plan (1) Encounter for pre-operative examination: Chart Review Chart Review: Acceptable Risk for Surgery and Patient NOT seen in Pre Admission Testing Consults Requested none ASA [id number] Proposed Anesthesia Anesthesia Type: General Risk / Benefits Reviewed With: PT / POA / Parent / Guardian, Accepts Plan and Informed Consent Obtained History Height/Weight Height: 5 ft 8 in Weight: 96.6 kg Allergies Allergy/AdvReac Type Severity Reaction Status Date / Time No Known Allergies Allergy Verified 05/06/19 01:11 Medications Home Medications Medication Instructions Recorded Confirmed Last Taken Caltrate 600 plus D 1 tab PO DAILY 05/11/18 05/06/19 05/11/18 losartan 25 mg PO DAILY 05/11/18 05/06/19 05/11/18 magnesium chloride 64 mg PO DAILY 05/11/18 05/06/19 05/11/18 metoprolol succinate 200 mg PO QPM 05/11/18 05/06/19 05/10/18 multivitamin 1 tab PO DAILY 05/11/18 05/06/19 05/11/18 prednisone 5 mg PO DAILY 05/11/18 05/06/19 05/11/18 warfarin [Coumadin] 2.5 mg PO 5XWK 05/11/18 05/06/19 05/10/18 warfarin [Coumadin] 5 mg PO 2XWK 05/11/18 05/06/19 05/08/18 meclizine 12.5 mg tablet 12.5 mg PO TID PRN #20 tab 02/09/19 05/06/19 Unknown potassium chloride ER 20 mEq 20 meq PO DAILY 02/09/19 05/06/19 Unknown tablet,extended release levothyroxine 150 mcg tablet 150 mcg PO DAILY #90 tab 02/26/19 05/06/19 Unknown furosemide 40 mg tablet 40 mg PO .COMPLEX #180 tab 04/20/19 05/06/19 Unknown NPO Date Last Intake of Fluids: 05/05/19 Time Last Intake of Fluids: 12:30 Date Last Intake of Solids: 05/05/19 Time Last Intake of Solids: 12:30 Past Medical History Medical History LBBB (left bundle branch block) Hypertension Hypothyroid Polymyalgia rheumatica Biventricular implantable cardioverter-defibrillator in situ (2014) Breast cancer s/p left lumpectomy Atrial fibrillation Cardiomyopathy Combined systolic and diastolic congestive heart failure PMR (polymyalgia rheumatica) Acute metabolic encephalopathy (Resolved) Plantar fasciitis (Resolved) UTI (urinary tract infection) (Resolved) Exercise / Class Metabolic Activity III < 4 Walking/Shop/Light housework Negative for chest pain or shortness of breath. Past Family History Family History Other Heart disease Past Surgical History Surgical History S/P cholecystectomy S/P thyroidectomy Past Anesthesia History No Hx of Anesthesia Complications History of PONV No Hx of PONV Social History Smoking Status: Never smoker Hx Alcohol Use: No Hx Substance Use: No Review of Systems Positive for N/V Physical Exam Vital Signs Last Vital Signs Temp 36.7 C 05/05/19 22:28 Pulse 61 05/06/19 01:14 Resp 26 H 05/06/19 01:14 BP 184/78 H 05/06/19 01:14 Pulse Ox 97 05/06/19 01:14 Constitutional + obese ENMT Mouth: + small oral opening; no TMJ abnormality Thyromental Distance: < 3.5 Finger Breadths Mallampati Class: III Mouth / Teeth: 1. Missing back molars Neck normal visual inspection; neck extension not limited Respiratory normal respiratory effort Auscultation: lungs clear to auscultation bilaterally Cardiovascular Rate/Rhythm: regular rate and regular rhythm Heart Sounds: + murmur Neurologic moves all extremities Testing Laboratory Results 05/05/19 22:38 05/05/19 22:38 PT 19.8 Seconds (9.0-12.0) H 05/05/19 22:38 INR 2.0 (0.9-1.1) H 05/05/19 22:38 Electrocardiogram Date: 05/05/19 V-paved rate 65
[2019-05-06] MEDS ORDERED: PROPOFOL IV EMULSION 10 MG/ML 20 ML VIAL IV ONE (04:20)
[2019-05-06] MEDS ORDERED: fentaNYL citrate 100 MCG/2 ML VIAL ONE (04:20)
[2019-05-06] MEDS ORDERED: BUPIVACAINE 0.5 % 5 MG/1 ML MPF 30ML VIAL ONE (04:42)
[2019-05-06] MEDS ORDERED: ROCURONIUM BROMIDE 10 MG/ML 5 ML VIAL ONE (04:56)
[2019-05-06] MEDS ORDERED: DEXAMETHASONE SOD INJ 4 MG/ML VIAL ONE (04:56)
[2019-05-06] MEDS ORDERED: LIDOCAINE HCL 2% 2 ML VIAL/AMP(20MG/ML) INFIL ONE (04:56)
[2019-05-06] MEDS ORDERED: SUCCINYLCHOLINE CHLORIDE 20 MG/ML 10 ML VIAL ONE (04:56)
[2019-05-06] MEDS ORDERED: ONDANSETRON INJ 2 MG/ML 2 ML VIAL ONE (04:56)
[2019-05-06] MEDS ORDERED: SUGAMMADEX SODIUM 200 MG/2 ML VIAL IV ONE (05:18)
--- NOTE | 2019-05-06 05:27 | Post Operative Brief Note ---
PG Immediate Post Op with CF Date of Surgery May 06, 2019 Pre & Post Diagnosis Operation Date: 05/06/19 04:20 <No data on this case meets the specified criteria> Procedure Operation Date: 05/06/19 04:20 <No data on this case meets the specified criteria> Surgeon Fernando Anaya MD Estimated Blood Loss 5 Specimens Specimen Description: A. Left Inguinal Hernia Sac
--- NOTE | 2019-05-06 05:30 | Post Operative Brief Note ---
PG Immediate Post Op with CF Date of Surgery May 06, 2019 Pre & Post Diagnosis Operation Date: 05/06/19 04:20 <No data on this case meets the specified criteria> LEFT GROIN HERNIA I identified the patient and participated in the time-out.: Yes Procedure Operation Date: 05/06/19 04:20 <No data on this case meets the specified criteria> OPENREPAIR LEFT INCARCARATED INDIRECT HERNIA Surgeon Fernando Anaya MD Corporate Attorney 0 Estimated Blood Loss 5 Findings Consistent with Post-Op Diagnosis Specimens Specimen Description: A. Left Inguinal Hernia Sac
[2019-05-06] MEDS ORDERED: PIPERACILL/TAZOBAC CONSULT ACTIVE PRN (05:37)
[2019-05-06] MEDS ORDERED: ONDANSETRON INJ 2 MG/ML 2 ML VIAL IV PRN ×2 (05:37→06:09)
[2019-05-06] MEDS ORDERED: METOPROLOL TARTRATE 1 MG/ML VIAL IV PRN (05:37)
[2019-05-06] MEDS ORDERED: METOPROLOL TARTRATE 1 MG/ML VIAL IV SCH (05:37)
[2019-05-06] MEDS ORDERED: HYDROCORTISONE SOD SUCCINATE 100 MG/2 ML VIAL IV SCH (05:37)
[2019-05-06] MEDS ORDERED: OXYCODONE/ACETAMINOPHEN 5mg/325mg TAB PO PRN (05:39)
[2019-05-06] MEDS ORDERED: HYDROmorphone INJ 0.5 MG/0.5 ML SYR IV PRN (05:45)
[2019-05-06] MEDS ORDERED: ATROPINE SULFATE 0.1 MG/ML 10ML SYR IV PRN (06:09)
[2019-05-06] MEDS ORDERED: fentaNYL citrate 100 MCG/2 ML VIAL IV PRN (06:09)
[2019-05-06] MEDS ORDERED: ePHEDrine sulfate 50 MG/ML AMP IV PRN (06:09)
--- NOTE | 2019-05-06 06:20 | Anesthesiology Progress Note ---
Date of Service May 06, 2019 Anesthesia Post Procedure Vital Signs Vital Signs: Temp Pulse Pulse Resp BP BP Pulse Ox 05/06/19 06:13 36.9 C 60 22 172/77 H 98 05/06/19 06:07 60 22 176/65 H 98 05/06/19 05:56 60 22 151/69 H 98 05/06/19 05:51 36.9 C 60 21 168/70 H 99 05/06/19 01:14 61 26 H 184/78 H 97 05/05/19 23:35 221/99 H 05/05/19 23:17 61 21 92 05/05/19 22:32 97 05/05/19 22:28 36.7 C 64 22 247/83 H 97 Pain Intensity Lower Abdomen: Pain Intensity: 6 Transfer of Care Handoff Completed per policy Notes Mental Status: alert / awake / arousable and participated in evaluation Patient Amnestic to Procedure: Yes Nausea / Vomiting: adequately controlled Pain: adequately controlled Airway Patency, RR, SpO2: stable & adequate BP & HR: stable & adequate Hydration State: stable & adequate Anesthetic Complications: no major complications apparent and Pt Satisfied with anesthetic care
--- NOTE | 2019-05-06 07:05 | CT Scan Report ---
CT SCAN OF THE ABDOMEN AND PELVIS WITHOUT CONTRAST CLINICAL HISTORY: Upper abdominal pain with nausea and vomiting COMPARISON STUDY: 05/11/2018 TECHNIQUE: CT scan of the abdomen and pelvis was performed from the lung bases to the proximal femurs . Images are reviewed in the axial, sagittal, and coronal planes. IV contrast was not administered fo r this examination. A dose lowering technique was utilized adhering to the principles of ALARA. CT DOSE: 1085.78 mGy.cm FINDINGS: Lower chest: There is a small hiatal hernia Liver: There is a bilobed rim calcified 27 mm lesion within the medial segment of the right lobe of t he liver. Gallbladder: Surgically absent Spleen: Normal in size and attenuation. Pancreas: Unremarkable. Adrenal glands: Unremarkable. Kidneys: There is mild renal cortical thinning. There is 21 mm right renal cyst. Bowel: There are dilated fluid-filled small bowel loops, secondary to an incarcerated left inguinal h ernia. There is extensive colonic diverticulosis. There is minimal adjacent fluid. It would be diffic ult to exclude minimal diverticulitis although the fluid may be secondary to layering reactive fluid from the patient's small bowel obstruction. No free air is visualized. Peritoneum: There is a small amount of free pelvic fluid. There is no free intraperitoneal air. Vasculature: The abdominal aorta is normal in course and caliber. Adenopathy: None. Pelvic viscera: The uterus appears surgically absent. There are small droplets of air within the blad rolando, likely iatrogenic. Skeletal structures: No destructive osseous lesions are seen. IMPRESSION: Small bowel obstruction secondary to a small bowel containing left inguinal hernia. Surg ical consultation is recommended. Electronically signed by: Osman Monet M.D. 05/06/2019 7:03 AM
--- NOTE | 2019-05-06 07:25 | XRay Report ---
XR chest 1V portable HISTORY: Generalized abdominal pain. COMPARISON: Chest 05/16/2018. FINDINGS: The heart remains mildly enlarged. There are mitral radius calcifications. No new focal noelle g consolidations to suggest pneumonia. Mild interstitial thickening, unchanged. This may be chronic. No evidence for pulmonary edema. Left-sided pacemaker/defibrillator is again noted. IMPRESSION: Stable mild cardiomegaly. Electronically signed by: Xiang Ashton M.D. 05/06/2019 7:24 AM
[2019-05-06] MEDS: FAMOTIDINE 20 MG in SYRINGE 3 ML IV SCH ×2 (07:35→19:41)
[2019-05-06] MEDS: PIPERACILLIN/TAZOBACTAM 3.375 GM in DEXTROSE 5% 100 ML IV SCH ×3 (07:35→23:36)
[2019-05-06] MEDS: NSS + 20MEQ KCL 20 MEQ/1,000 ML BAG IV SCH ×2 (07:35→19:41)
[2019-05-06] MEDS: HYDROCORTISONE SOD 100 MG in SYRINGE 0 ML IV SCH ×3 (07:36→23:37)
--- NOTE | 2019-05-06 08:19 | Operative Report ---
PG Post Operative Report Pre & Post Diagnosis Operation Date: 05/06/19 04:20 Pre-Op Diagnosis: Incarcerated left groin hernia Post-Op Diagnosis: Incarcerated left indirect inguinal hernia I identified the patient and participated in the time-out.: Yes Procedure Operation Date: 05/06/19 04:20 Actual Procedures p Open repair incarcerated left indirect inguinal hernia(Left) - Fernando Anaya MD The patient was brought into the operating theater supine position general endotracheal anesthesia abdomen was prepped Betadine scrub solution properly draped patient identified timeout was had patient has systemic antibiotics on board 1% Xylocaine with epi used to infiltrate 2 fingerbreadths medial anterior superior iliac crest on the left incision was made parallel the inguinal ligament deepened to subcutaneous tissue the patient had about 4 inch of subcutaneous fatty tissue there were able to the external fascia which we dissected down to the shelving portion and the external ring we could see some identified some scarred cement incarcerated tissue some edema in the area more local was used underneath the fascia which was opened along the course of its fibers to the external ring nerves identified and avoided we elevated the contents of the round ligament and off the floor unable to divide the round ligament distally ligated with 2-0 silk proximally with dissect up towards the internal ring where we can identify the hernial sac there was no contents at this time apparently was reduced we opened the hernial sac there was no bloody fluid appreciated I was able to place a finger in the hernia sac and identified the defect and the internal ring was about a centimeter and a half or so I ligated the sac with 2-0 silk suture resected along with that probably a piece of round ligament came with the antibiotic. I used 3-0 silk to close over the internal ring approximating transversalis fascia around the area and probably a 2 oh #2-0 silk interrupted approximating transversalis fascia down to the shelving portion of the inguinal ligament from the symphysis pubis all the way beyond the internal ring and the Bassini fascia. Repair appeared to be solid more local anesthesia was used in the area nerve placed underneath the external fascia which was closed with 3-0 interrupted silk 2-0 Vicryl interrupted subcutaneous tissue yvonne for skin edges dressing was applied procedure was tolerated well by the patient estimated blood loss 5 cc Surgeon Fernando Anaya MD Home Health Nurse Licensed Practical 0 Estimated Blood Loss 5 Findings Consistent with Post-Op Diagnosis Specimens hernia sac and round lig Description of Procedure claudia I attest to the content of the Intraoperative Record and any orders documented therein. Any exceptions are noted below.
[2019-05-06] MEDS ORDERED: PNEUMOCOCCAL POLYSACCHARIDES 25 MCG/0.5 ML VIAL/SYR IM ONE (09:30)
[2019-05-06] MEDS ORDERED: INFLUENZA ADMINISTRATION CHARGE ONE (09:30)
[2019-05-06] MEDS ORDERED: INFLUENZA VACCINE HIGH DOSE 65+ 0.5 ML SYR IM ONE (09:30)
[2019-05-06] MEDS ORDERED: PNEUMOCOCCAL ADMINISTRATION CHARGE ONE (09:30)
--- NOTE | 2019-05-06 10:20 | Surgery Progress Note ---
Date of Service May 06, 2019 Assessment & Plan (1) Small bowel obstruction: POD 0 incarcerated left inguinal hernia repair seen with Dr. Jaclyn MCALLISTER for now Subjective no complaints Physical Exam Gastrointestinal (Abdomen): Percussion/Palpation: abdomen soft minimal NG output Results & Data Vital Signs (Past 12 Hours) Vital Signs Temp Pulse Pulse Resp BP BP Pulse Ox 05/06/19 07:50 60 172/81 H 99 05/06/19 06:49 36.5 C 69 22 162/86 H 98 05/06/19 06:30 05/06/19 06:13 36.9 C 60 22 172/77 H 98 05/06/19 06:07 60 22 176/65 H 98 05/06/19 05:56 60 22 151/69 H 98 05/06/19 05:51 36.9 C 60 21 168/70 H 99 05/06/19 01:14 61 26 H 184/78 H 97 05/05/19 23:35 221/99 H 05/05/19 23:17 61 21 92 05/05/19 22:32 97 05/05/19 22:28 36.7 C 64 22 247/83 H 97 Pulse Ox 05/06/19 07:50 05/06/19 06:49 05/06/19 06:30 98 05/06/19 06:13 05/06/19 06:07 05/06/19 05:56 05/06/19 05:51 05/06/19 01:14 05/05/19 23:35 05/05/19 23:17 05/05/19 22:32 05/05/19 22:28 PG Care Time/CCT Total # of Minutes Spent Total Time Spent with Patient: Total time spent is greater than 50% in coordination of care (as documented) at patient's floor/unit and/or counseling patient:
[2019-05-06] MEDS: HydrALAZINE HCL 20 MG/ML VIAL IV PRN ×2 (11:44→19:41)
[2019-05-07] MEDS: HydrALAZINE HCL 20 MG/ML VIAL IV PRN (05:47)
[2019-05-07 06:50] LABS: Basophils # (auto) 0.01 K/uL (0-0.2); Basophils % (auto) 0.1 %; Hematocrit (blood only) 40.2 % (37-47); Hemoglobin 13.3 g/dL (12.0-16.0); Immature Granulocytes # (auto) 0.06 K/uL (0.00-0.02); Immature Granulocytes % (auto) 0.4 %; Lymphocytes # (auto) 0.81 K/uL (1.2-3.4); Lymphocytes % (auto) 5.1 %; Mean Corpuscular Hemoglobin 30.4 pg (25-34); Mean Corpuscular Hgb Conc 33.1 g/dL (32-36); Mean Corpuscular Volume 91.8 fL (80-100); Mean Platelet Volume 11.3 fL (7.4-10.4); Monocytes # (auto) 1.05 K/uL (0.11-0.59); Monocytes % (auto) 6.6 %; Neutrophils # (auto) 13.88 K/uL (1.4-6.5); Neutrophils % (auto) 87.8 %; Platelet Count 268 K/uL (130-400); Red Blood Count 4.38 M/uL (4.2-5.4); White Blood Count 15.81 K/uL (4.8-10.8)
[2019-05-07 06:59] LABS: INR 2.1 (0.9-1.1); Partial Thromboplastin Ratio 1.2; Partial Thromboplastin Time 32.7 Seconds (21.0-31.0); Prothrombin Time 20.3 Seconds (9.0-12.0)
[2019-05-07 07:17] LABS: Estimated Average Glucose 134 mg/dl; Hemoglobin A1C 6.3 % (4.5-5.6)
[2019-05-07 07:20] LABS: Albumin Level 3.2 gm/dl (3.4-5.0); BUN Creatinine Ratio 16.1 (10-20); Calcium 9.3 mg/dl (8.5-10.1); Est GFR (African American) 46.2; Est GFR (Non-African American) 39.9; Potassium 3.7 mmol/L (3.5-5.1)
[2019-05-07 07:23] LABS: Albumin Globulin Ratio 0.8 (0.9-2); Bilirubin,Total 1.3 mg/dl (0.2-1); Total Protein 7.2 gm/dl (6.4-8.2)
[2019-05-07] MEDS: HYDROCORTISONE SOD 100 MG in SYRINGE 0 ML IV SCH (07:44)
[2019-05-07] MEDS: NSS + 20MEQ KCL 20 MEQ/1,000 ML BAG IV SCH (07:44)
[2019-05-07] MEDS: FAMOTIDINE 20 MG in SYRINGE 3 ML IV SCH ×3 (07:47→19:44)
[2019-05-07] MEDS: PIPERACILLIN/TAZOBACTAM 3.375 GM in DEXTROSE 5% 100 ML IV SCH ×2 (07:47→16:51)
[2019-05-07] MEDS ORDERED: SODIUM CHLORIDE 0.9% 250 ML IV ONE (08:11)
[2019-05-07] MEDS ORDERED: ACETAMINOPHEN SOL 650 MG/20.3 ML UDC PO PRN (09:16)
--- NOTE | 2019-05-07 09:24 | Surgery Progress Note ---
Date of Service May 07, 2019 Assessment & Plan (1) Small bowel obstruction: POD 1 repair of left inguinal hernia NG was removed start clears Subjective denies pain and nausea, she is upset that no believes her that Dr. Taylor was on the television last night and that there were people in her room with guns Physical Exam Gastrointestinal (Abdomen): Percussion/Palpation: abdomen soft minimal NG output Results & Data Vital Signs (Past 12 Hours) Vital Signs Temp Pulse Pulse Resp BP BP Pulse Ox 05/07/19 07:17 36.8 C 68 18 125/64 93 05/07/19 05:43 36.6 C 80 19 194/74 H 97 05/07/19 00:01 63 05/06/19 23:37 36.9 C 76 19 150/84 H 96 PG Care Time/CCT Total # of Minutes Spent Total Time Spent with Patient: Total time spent is greater than 50% in coordination of care (as documented) at patient's floor/unit and/or counseling patient:
--- NOTE | 2019-05-07 09:32 | Anesthesiology Progress Note ---
Date of Service May 07, 2019 Anesthesia Post Procedure Vital Signs Vital Signs: Temp Pulse Pulse Resp BP BP Pulse Ox 05/07/19 07:17 36.8 C 68 18 125/64 93 05/07/19 05:43 36.6 C 80 19 194/74 H 97 05/07/19 00:01 63 05/06/19 23:37 36.9 C 76 19 150/84 H 96 05/06/19 20:41 67 134/68 05/06/19 19:02 36.4 C L 67 20 171/72 H 95 05/06/19 15:35 36.4 C L 61 18 127/70 94 05/06/19 15:07 68 05/06/19 12:26 61 127/69 05/06/19 11:13 36.9 C 68 18 183/88 H 98 Pain Intensity Lower Abdomen: Pain Intensity: 6 Notes Mental Status: alert / awake / arousable and participated in evaluation Patient Amnestic to Procedure: Yes Nausea / Vomiting: adequately controlled Pain: adequately controlled Airway Patency, RR, SpO2: stable & adequate BP & HR: stable & adequate Hydration State: stable & adequate Anesthetic Complications: no major complications apparent and Pt Satisfied with anesthetic care
--- NOTE | 2019-05-07 10:41 | Hospitalist Progress Note ---
Date of Service May 07, 2019 Assessment & Plan (1) Small bowel obstruction: (2) Intractable nausea and vomiting: Abdominal pain with intractable nausea and vomiting/small bowel obstruction associated with small left inguinal hernia- Continue Zosyn 4.5 g IV every 8 hours S/P hernia repair 05/[address] Anaya NG tube removed this morning, tolerated clears, will advance to full liquid tonight (3) Abdominal pain: resolved (4) Acute kidney failure: Mild - creatining 1.2 today, very low output overnight and this morning Bolused with 250 ml NSS and continue NSS + KCl 20 mEq at 80 mils per hour. repeat prp am (5) Polymyalgia rheumatica: Resume prednisone 5 mg p.o. daily. Stress dosed hydrocortisone 100 mg IV every 8 hours x24 hours - will disco ntinue, pressures are hypertensive (6) Hypertension: Hypertension/atrial fibrillation/cardiomyopathy/biventricular AICD/long- term use of anticoagulants/left bundle branch block- Hold furosemide, resume losartan, magnesium chloride, metoprolol succinate, potassium chloride and warfarin. INR corrected in the OR -ok with surgery to resume warfarin, check INR am (7) LBBB (left bundle branch block): See above (8) Biventricular implantable cardioverter-defibrillator in situ: See above (9) rn long term care (current) use of anticoagulants: Resume warfarin as noted above (10) Atrial fibrillation: As above. (11) Cardiomyopathy: See above (12) Breast cancer: Noted (13) Hypothyroid: resume levothyroxine (14) DVT prophylaxis: resumed warfarin Dispo:PT/OT [place], lives with in an apartment. Will return at discharge Subjective Ms. Hendricks is feeling better today. She is a bit confused at times. Not passing gas, no bm since surgery yet. No nausea or vomiting ROS Constitutional: no chills, aches, sweats or fever Respiratory: no sob,cough, sputum, or wheezing Cardiac: no chest pain, palpitations, edema, orthopnea or lightheadedness GI: no abdominal pain, nausea, vomiting, diarrhea or constipation : no dysuria or hesitancy Extremities: no joint pain or weakness Skin: no rash All other systems reviewed and negative Physical Exam Physical Exam: General: no distress Eyes: normal inspection, PERLL Respiratory: chest non tender, clear to auscultation, normal breath sounds, no respiratory distress, no accessory muscle use Cardiac: regular rate and rhythm, no rub or gallop, no murmur, no edema, no jvd GI/:hypoactive bowel sounds, no abd pain or tenderness, soft, non distended Extremities: normal range of motion, normal strength, non tender Neuro/Psych: alert and oriented x 3, normal mood and affect Skin: normal color, dry Results & Data Vital Signs (Past 12 Hours) Vital Signs Temp Pulse Pulse Resp BP BP Pulse Ox 05/07/19 07:17 36.8 C 68 18 125/64 93 05/07/19 05:43 36.6 C 80 19 194/74 H 97 05/07/19 00:01 63 05/06/19 23:37 36.9 C 76 19 150/84 H 96 PG Care Time/CCT Total # of Minutes Spent Total Time Spent with Patient: Total time spent is greater than 50% in coordination of care (as documented) at patient's floor/unit and/or counseling patient: (1) Atrial fibrillation Atrial fibrillation type: chronic Qualified Code(s): I48.2 - Chronic atrial fibrillation (2) Cardiomyopathy Cardiomyopathy type: unspecified Qualified Code(s): I42.9 - Cardiomyopathy, unspecified
[2019-05-07] MEDS ORDERED: MECLIZINE 12.5 MG TAB PO PRN (14:31)
[2019-05-07] MEDS ORDERED: WARFARIN SOD 5 MG TAB PO SCH (16:00)
[2019-05-07] MEDS: METOPROLOL SUCC 50MG EXT REL TAB PO SCH (21:28)
[2019-05-08] MEDS: LEVOTHYROXINE SODIUM 150 MCG TABLET PO SCH (06:05)
[2019-05-08 07:09] LABS: Prothrombin Time 34.7 Seconds (9.0-12.0)
[2019-05-08 07:19] LABS: INR 3.7 (0.9-1.1)
[2019-05-08 07:25] LABS: Basophils # (auto) 0.01 K/uL (0-0.2); Basophils % (auto) 0.1 %; Eosinophils # (auto) 0.08 K/uL (0-0.5); Eosinophils % (auto) 0.6 %; Hematocrit (blood only) 38.7 % (37-47); Hemoglobin 12.7 g/dL (12.0-16.0); Immature Granulocytes # (auto) 0.08 K/uL (0.00-0.02); Immature Granulocytes % (auto) 0.6 %; Lymphocytes # (auto) 1.62 K/uL (1.2-3.4); Lymphocytes % (auto) 12.3 %; Mean Corpuscular Hemoglobin 30.3 pg (25-34); Mean Corpuscular Volume 92.4 fL (80-100); Mean Platelet Volume 10.9 fL (7.4-10.4); Monocytes # (auto) 1.44 K/uL (0.11-0.59); Neutrophils # (auto) 9.91 K/uL (1.4-6.5); Neutrophils % (auto) 75.4 %; Platelet Count 257 K/uL (130-400); RDW Standard Deviation 46.9 fL (36.4-46.3); Red Blood Count 4.19 M/uL (4.2-5.4); White Blood Count 13.14 K/uL (4.8-10.8)
[2019-05-08 07:30] LABS: Albumin Level 3.3 gm/dl (3.4-5.0); BUN Creatinine Ratio 23.2 (10-20); Calcium 9.3 mg/dl (8.5-10.1); Creatinine Clr Calc Pharmacy 50.9 ml/min; Est GFR (African American) 59.9; Est GFR (Non-African American) 51.7; Potassium 3.5 mmol/L (3.5-5.1)
[2019-05-08 07:33] LABS: Bilirubin,Total 0.9 mg/dl (0.2-1); Globulin 3.4 gm/dl (2.5-4.0); Total Protein 6.7 gm/dl (6.4-8.2)
[2019-05-08 07:57] LABS: Mean Corpuscular Hgb Conc 32.8 g/dL (32-36)
--- NOTE | 2019-05-08 08:33 | CT Scan Report ---
CT head/brain wo con CLINICAL HISTORY: 84 years-old Female with fall. Acute head and neck injury status post fall TECHNIQUE: Multiple axial CT images of the head were obtained without contrast. A dose lowering tech nique was utilized adhering to the principles of ALARA. COMPARISON: CT cervical spine of same day, CT head 05/16/2018. FINDINGS: No acute intracranial hemorrhage, midline shift, intracranial mass, hydrocephalus, territorial ischem ia or abnormal extra-axial collection. Age-related involutional changes. Patchy white matter hypodens ities suggest chronic microvascular ischemic disease. Cerebral vascular calcifications are also noted . Subcentimeter remote appearing lacunar infarction of the right lentiform nucleus. The calvarium is intact. Prior bilateral cataract repair. 6 mm soft tissue calcification of the right frontal scalp. The paranasal sinuses, mastoid air cells, and middle ear cavities are clear. IMPRESSION: No acute intracranial abnormality or calvarial fracture. The above report was generated using voice recognition software. It may contain grammatical, syntax o r spelling errors. Electronically signed by: Diomedes Dooley M.D. 05/08/2019 8:31 AM
--- NOTE | 2019-05-08 08:37 | CT Scan Report ---
CT cervical spine wo con CLINICAL HISTORY: 84 years-old Female with fall. Acute head and neck injury status post fall COMPARISON: CTA head and thoracic spine studies of same day TECHNIQUE: Multiple axial CT images of the cervical spine were obtained without contrast. A dose low ering technique was utilized adhering to the principles of ALARA. FINDINGS: Demineralized appearance of the bones. Mild convex left curvature of the lower cervical spine. Chondr ocalcinosis of the disc spaces. Multilevel posterior disc osteophyte complex formation, most pronounc ed at the C5-C6 interspace. Severe multilevel facet arthrosis is most pronounced on the left. There i s no acute cervical spine fracture or subluxation identified. Evaluation of the central canal and izzy roforamina is better assessed by MRI. Multilevel foraminal narrowing is noted. Ovoid lucency within t he C6 vertebral body appears well-corticated and likely chronic. No pneumothorax or prevertebral soft tissue swelling. Calcified plaque of the carotid bulbs. IMPRESSION: No acute cervical spine fracture or subluxation. The above report was generated using voice recognition software. It may contain grammatical, syntax o r spelling errors. Electronically signed by: Diomedes Dooley M.D. 05/08/2019 8:36 AM
--- NOTE | 2019-05-08 08:43 | CT Scan Report ---
CT thoracic spine wo con HISTORY: 84 years-old Female fall acute mid back pain status post fall COMPARISON: CT cervical spine of same day, CT abdomen and pelvis 05/06/2019, CTA chest 10/02/2013 TECHNIQUE: Multiple axial CT images of the thoracic spine were obtained without the use of IV contras t. A dose lowering technique was used consistent with the principals of ALARA. FINDINGS: Demineralized appearance of the bones. Multilevel anterior endplate ridging osteophytic spurring. Ingris tebral body heights are well-maintained without acute compression deformity identified. Multilevel ad vanced facet arthrosis. Mostly mild multilevel disc space narrowing. No acute fracture or subluxation identified. Cardiomegaly with dense mitral annular calcifications. Left pectoral pacer/AICD. No acut e rib fracture identified. Evaluation of the central canal and neuroforamina is better assessed by MR I. No high-grade central canal stenosis identified. Calcifications are noted within the posterior epi dural distribution which are nonspecific. Cholecystectomy. Mild dilation of the main pulmonary artery may reflect pulmonary arterial hypertension. No pneumothorax. Bibasilar groundglass densities sugges t atelectasis. IMPRESSION: No acute fracture or subluxation. The above report was generated using voice recognition software. It may contain grammatical, syntax o r spelling errors. Electronically signed by: Diomedes Dooley M.D. 05/08/2019 8:41 AM
--- NOTE | 2019-05-08 08:55 | Hospitalist Progress Note ---
Date of Service May 08, 2019 Assessment & Plan (1) Small bowel obstruction: As noted. (2) Intractable nausea and vomiting: Abdominal pain with intractable nausea and vomiting/small bowel obstruction associated with small left inguinal hernia- Continue Zosyn 4.5 g IV every 8 hours S/P hernia repair 05/[address] Anaya Tolerating full liquid diet, passing gas, no bm yet (3) Abdominal pain: resolved (4) Fall: Code purple 05/08. She walked to the cafeteria with her without letting nursing know. While in the cafeteria she went to sit on a chair but caught the edge and fell. Per responding doctor, she did hit her head and neck. Her felt she did not hit hard. She was placed in a collar and sent for stat CT of head, cervical and thoracic spine which were all without fracture or acute process. She is eating breakfast, denies any pain, no headache or visual changes. (5) Acute kidney failure: Resolved with IVF, patient now taking po DC'd IVF (6) Polymyalgia rheumatica: Resume prednisone 5 mg p.o. daily. Stress dosed with hydrocortisone now on home dosing (7) Hypertension: Hypertension/atrial fibrillation/cardiomyopathy/biventricular AICD/long- term use of anticoagulants/left bundle branch block- Hold furosemide, continue losartan, magnesium chloride, metoprolol succinate, potassium chloride and warfarin. 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 (12) Cardiomyopathy: See above (13) Breast cancer: Noted (14) Hypothyroid: resume levothyroxine (15) DVT prophylaxis: resumed warfarin Dispo:PT/OT [place], lives with in an apartment. Will return at discharge Subjective Ms. Hendricks was a code purple this morning. She walked to the cafeteria with her without letting nursing know. While in the cafeteria she went to sit on a chair but caught the edge and fell. Per responding doctor, she did hit her head and neck. Her felt she did not hit hard. She was placed in a collar and sent for stat CT of head, cervical and thoracic spine which were all without fracture or acute process. She is eating breakfast, denies any pain, no headache or visual changes. She is tolerating her full liquid diet and is now passing gas but no bowel movement since surgery ROS Constitutional: no chills, aches, sweats or fever Respiratory: no sob,cough, sputum, or wheezing Cardiac: no chest pain, palpitations, edema, orthopnea or lightheadedness GI: no abdominal pain, nausea, vomiting, diarrhea or constipation : no dysuria or hesitancy Extremities: no joint pain or weakness Skin: no rash All other systems reviewed and negative Physical Exam Physical Exam: General: no distress Eyes: normal inspection, PERLL Respiratory: chest non tender, clear to auscultation, normal breath sounds, no respiratory distress, no accessory muscle use Cardiac: regular rate and rhythm, no rub or gallop, no murmur, no edema, no jvd GI/: active bowel sounds, no abd pain or tenderness, soft, non distended Extremities: normal range of motion, normal strength, non tender Neuro/Psych: alert and oriented x 3, normal mood and affect, CN II - XII intact Skin: normal color, dry Results & Data Vital Signs (Past 12 Hours) Vital Signs Temp Pulse Pulse Resp BP Pulse Ox 05/08/19 07:20 36.6 C 61 20 170/80 H 94 05/07/19 23:00 36.5 C 64 16 142/77 H 96 05/07/19 21:25 66 176/77 H PG Care Time/CCT Total # of Minutes Spent Total Time Spent with Patient: Total time spent is greater than 50% in coordination of care (as documented) at patient's floor/unit and/or counseling patient: (1) Atrial fibrillation Atrial fibrillation type: chronic Qualified Code(s): I48.2 - Chronic atrial fibrillation (2) Cardiomyopathy Cardiomyopathy type: unspecified Qualified Code(s): I42.9 - Cardiomyopathy, u nspecified
[2019-05-08] MEDS: FAMOTIDINE 20 MG in SYRINGE 3 ML IV SCH (09:08)
[2019-05-08] MEDS: LOSARTAN POTASSIUM 25 MG TAB PO SCH (09:32)
[2019-05-08] MEDS: MULTIVITAMIN TAB PO SCH (09:32)
[2019-05-08] MEDS: POTASSIUM CHLORIDE 20 MEQ TABCR PO SCH (09:32)
[2019-05-08] MEDS: MAGNESIUM CHLORIDE 64MG DELAYED REL TAB PO SCH (09:32)
[2019-05-08] MEDS: predniSONE 5 MG TAB PO SCH (09:32)
[2019-05-08] MEDS: CALCIUM 600MG + VIT D 400 IU TAB PO SCH (09:32)
[2019-05-08] MEDS: FAMOTIDINE 20 MG TAB PO SCH (10:05)
--- NOTE | 2019-05-08 10:29 | Surgery Progress Note ---
Date of Service May 08, 2019 Assessment & Plan (1) Incarcerated inguinal hernia: Postop day #2 status post repair left inguinal hernia Doing well Peristalsis returning Can advance to soft diet Encourage ambulation If tolerates diet for lunch consider discharge later today or tomorrow Subjective Postoperative day #2 status post repair of left inguinal hernia Feeling well Denies nausea and vomiting Tolerated full liquids Passed flatus Physical Exam Gastrointestinal (Abdomen): Inspection/Auscultation: normal bowel sounds and + abdominal surgical incision (Clean, dry and intact); abdomen not distended Percussion/Palpation: + abdomen tender (Mild incisional only) and abdomen soft Results & Data Vital Signs (Past 12 Hours) Vital Signs Temp Pulse Pulse Resp BP Pulse Ox 05/08/19 08:29 36.4 C L 65 18 172/81 H 18 L 05/08/19 07:20 36.6 C 61 20 170/80 H 94 05/07/19 23:00 36.5 C 64 16 142/77 H 96 Laboratory Results 05/08/19 05/08/19 05/08/19 Range/Units 08:12 07:11 05:28 WBC 13.14 H RBC 4.19 L Hgb 12.7 Hct 38.7 MCV 92.4 MCH 30.3 MCHC 32.8 RDW Std Deviation 46.9 H RDW Coeff of Snow 14.0 Plt Count 257 MPV 10.9 H Immature Gran % (Auto) 0.6 Neut % (Auto) 75.4 Lymph % (Auto) 12.3 Wolfe % (Auto) 11.0 Eos % (Auto) 0.6 Baso % (Auto) 0.1 Immature Gran # (Auto) 0.08 H Neut # (Auto) 9.91 H Lymph # (Auto) 1.62 Wolfe # (Auto) 1.44 H Eos # (Auto) 0.08 Baso # (Auto) 0.01 Absolute Nucleated RBC Nucleated RBC % (auto) Neutrophils % (Manual) Band Neutrophils % Lymphocytes % (Manual) Prolymphocyte % Reactive Lymphs % (Man) Monocytes % (Manual) Eosinophils % (Manual) Basophils % (Manual) Metamyelocytes % (Man) Myelocytes % (Man) Promyelocytes % (Man) Blast Cells % (Manual) Plasma Cell % (Manual) Other Cells % Nucleated RBC % Neutrophils # (Manual) Band Neutrophils # Total Absolute Neuts Lymphocytes # (Manual) Prolymphocyte # Reactive Lymphs # Total Abs Lymphocytes Monocytes # (Manual) Eosinophils # (Manual) Basophils # (Manual) Metamyelocytes # (Man) Myelocytes # (Manual) Promyelocytes # (Man) Blast Cells # (Man) Plasma Cell # (Manual) Other Cells # Nucleated RBCs # (Man) Hypersegmented Neuts Hyposegmented Neuts Hypogranular Neuts Large Granular Lymphs # Lrg Granular Lymphs Hairy Cells Smudge Cells Toxic Granulation Toxic Vacuolation Dohle Bodies [place] Rods Platelet Estimate Hypogranular Platelets Clumped Platelets Giant Platelets Platelet Satelliting RBC Morphology Polychromasia Hypochromasia Poikilocytosis Basophilic Stippling Anisocytosis Microcytosis Macrocytosis Spherocytes Pappenheimer Bodies Sickle Cells Target Cells Tear Drop Cells Ovalocytes Stomatocytes Marinelli-Coward Bodies Echinocytes Acanthocytes (Spur) Rouleaux RBC Agglutinates Schistocytes RBC Morph Comment Sezary Cell PT 34.7 H (9.0-12.0) Seconds INR 3.7 H (0.9-1.1) Sodium (136-145) mmol/L Potassium (3.5-5.1) mmol/L Chloride (98-107) mmol/L Carbon Dioxide (21-32) mmol/L Anion Gap (3-11) BUN (7-18) mg/dl Creatinine (0.6-1.2) mg/dl Est Cr Clr Drug Dosing ml/min Est GFR ( Amer) Est GFR (Non-Af Amer) BUN/Creatinine Ratio (10-20) Glucose (70-99) mg/dl POC Glucose 92 (70-99) Calcium (8.5-10.1) mg/dl Total Bilirubin (0.2-1) mg/dl AST (15-37) U/L ALT (12-78) U/L Alkaline Phosphatase (45-117) U/L Total Protein (6.4-8.2) gm/dl Albumin (3.4-5.0) gm/dl Globulin (2.5-4.0) gm/dl Albumin/Globulin Ratio (0.9-2) 05/08/19 05/08/19 Range/Units 05:28 05:28 WBC Cancelled RBC Cancelled Hgb Cancelled Hct Cancelled MCV Cancelled MCH Cancelled MCHC Cancelled RDW Std Deviation Cancelled RDW Coeff of Snow Cancelled Plt Count Cancelled MPV Cancelled Immature Gran % (Auto) Cancelled Neut % (Auto) Cancelled Lymph % (Auto) Cancelled Wolfe % (Auto) Cancelled Eos % (Auto) Cancelled Baso % (Auto) Cancelled Immature Gran # (Auto) Cancelled Neut # (Auto) Cancelled Lymph # (Auto) Cancelled Wolfe # (Auto) Cancelled Eos # (Auto) Cancelled Baso # (Auto) Cancelled Absolute Nucleated RBC Cancelled Nucleated RBC % (auto) Cancelled Neutrophils % (Manual) Cancelled Band Neutrophils % Cancelled Lymphocytes % (Manual) Cancelled Prolymphocyte % Cancelled Reactive Lymphs % (Man) Cancelled Monocytes % (Manual) Cancelled Eosinophils % (Manual) Cancelled Basophils % (Manual) Cancelled Metamyelocytes % (Man) Cancelled Myelocytes % (Man) Cancelled Promyelocytes % (Man) Cancelled Blast Cells % (Manual) Cancelled Plasma Cell % (Manual) Cancelled Other Cells % Cancelled Nucleated RBC % Cancelled Neutrophils # (Manual) Cancelled Band Neutrophils # Cancelled Total Absolute Neuts Cancelled Lymphocytes # (Manual) Cancelled Prolymphocyte # Cancelled Reactive Lymphs # Cancelled Total Abs Lymphocytes Cancelled Monocytes # (Manual) Cancelled Eosinophils # (Manual) Cancelled Basophils # (Manual) Cancelled Metamyelocytes # (Man) Cancelled Myelocytes # (Manual) Cancelled Promyelocytes # (Man) Cancelled Blast Cells # (Man) Cancelled Plasma Cell # (Manual) Cancelled Other Cells # Cancelled Nucleated RBCs # (Man) Cancelled Hypersegmented Neuts Cancelled Hyposegmented Neuts Cancelled Hypogranular Neuts Cancelled Large Granular Lymphs Cancelled # Lrg Granular Lymphs Cancelled Hairy Cells Cancelled Smudge Cells Cancelled Toxic Granulation Cancelled Toxic Vacuolation Cancelled Dohle Bodies Cancelled Geneva Rods Cancelled Platelet Estimate Cancelled Hypogranular Platelets Cancelled Clumped Platelets Cancelled Giant Platelets Cancelled Platelet Satelliting Cancelled RBC Morphology Cancelled Polychromasia Cancelled Hypochromasia Cancelled Poikilocytosis Cancelled Basophilic Stippling Cancelled Anisocytosis Cancelled Microcytosis Cancelled Macrocytosis Cancelled Spherocytes Cancelled Pappenheimer Bodies Cancelled Sickle Cells Cancelled Target Cells Cancelled Tear Drop Cells Cancelled Ovalocytes Cancelled Stomatocytes Cancelled Marinelli-Coward Bodies Cancelled Echinocytes Cancelled Acanthocytes (Spur) Cancelled Rouleaux Cancelled RBC Agglutinates Cancelled Schistocytes Cancelled RBC Morph Comment Cancelled Sezary Cell Cancelled PT (9.0-12.0) Seconds INR (0.9-1.1) Sodium 142 (136-145) mmol/L Potassium 3.5 (3.5-5.1) mmol/L Chloride 111 H (98-107) mmol/L Carbon Dioxide 22 (21-32) mmol/L Anion Gap 9.0 (3-11) BUN 23 H (7-18) mg/dl Creatinine 1.00 (0.6-1.2) mg/dl Est Cr Clr Drug Dosing 50.9 ml/min Est GFR ( Amer) 59.9 Est GFR (Non-Af Amer) 51.7 BUN/Creatinine Ratio 23.2 H (10-20) Glucose 64 L (70-99) mg/dl POC Glucose (70-99) Calcium 9.3 (8.5-10.1) mg/dl Total Bilirubin 0.9 (0.2-1) mg/dl AST 73 H (15-37) U/L ALT 38 (12-78) U/L Alkaline Phosphatase 76 (45-117) U/L Total Protein 6.7 (6.4-8.2) gm/dl Albumin 3.3 L (3.4-5.0) gm/dl Globulin 3.4 (2.5-4.0) gm/dl Albumin/Globulin Ratio 1.0 (0.9-2)
[2019-05-08] MEDS ORDERED: WARFARIN SOD 2.5 MG TAB PO SCH (16:00)
[2019-05-08] MEDS: METOPROLOL SUCC 50MG EXT REL TAB PO SCH (19:52)
[2019-05-08] MEDS ORDERED: ONDANSETRON 4 MG OD TAB PO PRN (20:16)
[2019-05-09 05:53] LABS: Basophils # (auto) 0.02 K/uL (0-0.2); Basophils % (auto) 0.2 %; Eosinophils # (auto) 0.28 K/uL (0-0.5); Hematocrit (blood only) 36.9 % (37-47); Hemoglobin 11.8 g/dL (12.0-16.0); Immature Granulocytes # (auto) 0.04 K/uL (0.00-0.02); Immature Granulocytes % (auto) 0.4 %; Lymphocytes # (auto) 1.57 K/uL (1.2-3.4); Lymphocytes % (auto) 16.8 %; Mean Corpuscular Hemoglobin 30.2 pg (25-34); Mean Corpuscular Volume 94.4 fL (80-100); Mean Platelet Volume 11.2 fL (7.4-10.4); Monocytes # (auto) 0.78 K/uL (0.11-0.59); Monocytes % (auto) 8.4 %; Neutrophils # (auto) 6.64 K/uL (1.4-6.5); Neutrophils % (auto) 71.2 %; Platelet Count 225 K/uL (130-400); RDW Coefficient of Variation 13.9 % (11.5-14.5); RDW Standard Deviation 47.7 fL (36.4-46.3); Red Blood Count 3.91 M/uL (4.2-5.4); White Blood Count 9.33 K/uL (4.8-10.8)
[2019-05-09] MEDS: LEVOTHYROXINE SODIUM 150 MCG TABLET PO SCH (05:55)
[2019-05-09 06:20] LABS: Albumin Level 2.6 gm/dl (3.4-5.0); BUN Creatinine Ratio 22.3 (10-20); Calcium 8.8 mg/dl (8.5-10.1); Creatinine Clr Calc Pharmacy 54.7 ml/min; Est GFR (African American) 65.4; Est GFR (Non-African American) 56.4; Potassium 3.8 mmol/L (3.5-5.1)
[2019-05-09 06:23] LABS: Albumin Globulin Ratio 0.8 (0.9-2); Bilirubin,Total 0.8 mg/dl (0.2-1); Globulin 3.3 gm/dl (2.5-4.0); Total Protein 5.9 gm/dl (6.4-8.2)
[2019-05-09 06:47] LABS: Prothrombin Time 33.8 Seconds (9.0-12.0)
[2019-05-09 07:32] LABS: INR 3.6 (0.9-1.1)
[2019-05-09] MEDS: predniSONE 5 MG TAB PO SCH (08:06)
[2019-05-09] MEDS: MULTIVITAMIN TAB PO SCH (08:06)
[2019-05-09] MEDS: LOSARTAN POTASSIUM 25 MG TAB PO SCH (08:06)
[2019-05-09] MEDS: CALCIUM 600MG + VIT D 400 IU TAB PO SCH (08:06)
[2019-05-09] MEDS: MAGNESIUM CHLORIDE 64MG DELAYED REL TAB PO SCH (08:06)
[2019-05-09] MEDS: POTASSIUM CHLORIDE 20 MEQ TABCR PO SCH (08:07)
[2019-05-09] MEDS: FAMOTIDINE 20 MG TAB PO SCH (08:07)
--- NOTE | 2019-05-09 09:05 | Surgery Progress Note ---
Date of Service May 09, 2019 Assessment & Plan (1) Incarcerated inguinal hernia: Postop day 3 status post repair of incarcerated left inguinal hernia. Doing well. Tolerating regular diet Peristalsis has returned and bowels are moving Acceptable for discharge from a surgical standpoint when acceptable for discharge from a medical standpoint Subjective Postoperative day #3 status post incarcerated hernia on the left side. Tolerating regular diet Denies nausea and vomiting Bowels moved yesterday and she is passing flatus Physical Exam Gastrointestinal (Abdomen): Inspection/Auscultation: normal bowel sounds and + abdominal surgical incision (Clean, dry and intact, no erythema); abdomen not distended Percussion/Palpation: abdomen soft; abdomen nontender Results & Data Vital Signs (Past 12 Hours) Vital Signs Temp Pulse Pulse Resp BP Pulse Ox 05/09/19 06:01 36.5 C 60 14 176/88 H 98 05/09/19 01:52 EDT 36.8 C 67 18 177/81 H 94 Laboratory Results 05/09/19 05/09/19 05/09/19 Range/Units 05:09 05:09 05:09 WBC 9.33 (4.8-10.8) K/uL RBC 3.91 L (4.2-5.4) M/uL Hgb 11.8 L (12.0-16.0) g/dL Hct 36.9 L (37-47) % MCV 94.4 (80-100) fL MCH 30.2 (25-34) pg MCHC 32.0 (32-36) g/dL RDW Std Deviation 47.7 H (36.4-46.3) fL RDW Coeff of Snow 13.9 (11.5-14.5) % Plt Count 225 (130-400) K/uL MPV 11.2 H (7.4-10.4) fL Immature Gran % (Auto) 0.4 % Neut % (Auto) 71.2 % Lymph % (Auto) 16.8 % [place] % (Auto) 8.4 % Eos % (Auto) 3.0 % Baso % (Auto) 0.2 % Immature Gran # (Auto) 0.04 H (0.00-0.02) K/uL Neut # (Auto) 6.64 H (1.4-6.5) K/uL Lymph # (Auto) 1.57 (1.2-3.4) K/uL [place] # (Auto) 0.78 H (0.11-0.59) K/uL Eos # (Auto) 0.28 (0-0.5) K/uL Baso # (Auto) 0.02 (0-0.2) K/uL PT 33.8 H (9.0-12.0) Seconds INR 3.6 H (0.9-1.1) Sodium 143 (136-145) mmol/L Potassium 3.8 (3.5-5.1) mmol/L Chloride 111 H (98-107) mmol/L Carbon Dioxide 24 (21-32) mmol/L Anion Gap 8.0 (3-11) BUN 21 H (7-18) mg/dl Creatinine 0.93 (0.6-1.2) mg/dl Est Cr Clr Drug Dosing 54.7 ml/min Est GFR ( Amer) 65.4 Est GFR (Non-Af Amer) 56.4 BUN/Creatinine Ratio 22.3 H (10-20) Glucose 79 (70-99) mg/dl Calcium 8.8 (8.5-10.1) mg/dl Total Bilirubin 0.8 (0.2-1) mg/dl AST 43 H (15-37) U/L ALT 36 (12-78) U/L Alkaline Phosphatase 63 (45-117) U/L Total Protein 5.9 L (6.4-8.2) gm/dl Albumin 2.6 L (3.4-5.0) gm/dl Globulin 3.3 (2.5-4.0) gm/dl Albumin/Globulin Ratio 0.8 L (0.9-2)
--- NOTE | 2019-05-09 12:33 | Discharge Summary ---
Date of Service May 09, 2019 Admission HPI Per Admitting Provider The patient is a 84-year-old female with a past medical history including polymyalgia rheumatica, hypertension, hypothyroidism, biventricular AICD, breast cancer, atrial fibrillation, cardiomyopathy, left bundle branch block on chronic anticoagulation with warfarin, who presents to the emergency department with the above symptoms. She has not had any recent travels or sick exposures. She reports that she had a bowel movement early this morning and then later on in the afternoon. She also reports a headache that began today as well. Principal Diagnosis Inguinal hernia repair Discharge Exam Constitutional WD/WN, vitals as above Respiratory normal respiratory effort, lungs clear to auscultation Cardiovascular Rate/Rhythm: + abnormal rate and + abnormal rhythm Heart Sounds: normal S1 and normal S2 Gastrointestinal (Abdomen) Inspection/Auscultation: abdomen normal to inspection and normal bowel sounds; abdomen not distended Percussion/Palpation: abdomen soft; abdomen nontender Musculoskeletal no cyanosis or clubbing, extremities motor strength 5/5 Skin no rashes, warm and dry Neurologic moves all extremities, awake and + confused Speech / Cognition: normal speech Motor/Sensory: normal movement Psychiatric A+Ox3, euthymic affect Discharge Data Allergies Allergy/AdvReac Type Severity Reaction Status Date / Time No Known Allergies Allergy Verified 05/06/19 01:11 Consultations 05/06/19 01:42 ED Decision to Admit Stat 05/06/19 05:37 Consult Case Management - Discharge Planning Routine Consult General Surgery Routine 05/08/19 09:06 Consult Case Management - Discharge Planning Routine 05/09/19 12:20 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 (2) Intractable nausea and vomiting: Abdominal pain with intractable nausea and vomiting/small bowel ob struction associated with small left inguinal hernia- Abx discontinued S/P hernia repair 05/[address] Anaya Tolerating low fiber, passing gas, no bm yet Surgery ok'd discharge (3) Abdominal pain: resolved (4) Fall: Code purple 05/08. She walked to the cafeteria with her without letting nursing know. While in the cafeteria she went to sit on a chair but caught the edge and fell. Per responding doctor, she did hit her head and neck. Her felt she did not hit hard. She was placed in a collar and sent for stat CT of head, cervical and thoracic spine which were all without fracture or acute process. She has persistent delirium which was present prior to the fall but otherwise is awake and pleasant, eating well, participating in therapy since her fall. She does not have any headache or pain otherwise - hgb stable (5) Acute kidney failure: Resolved with IVF, patient now taking po DC'd IVF (6) Polymyalgia rheumatica: Resume prednisone 5 mg p.o. daily. Stress dosed with hydrocortisone now on home dosing (7) Hypertension: Hypertension/atrial fibrillation/cardiomyopathy/biventricular AICD/long- term use of anticoagulants/left bundle branch block- Resume furosemide for home, continue losartan, magnesium chloride, metoprolol succinate, potassium chloride and warfarin. 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 (12) Cardiomyopathy: See above (13) Breast cancer: Noted (14) Hypothyroid: resume levothyroxine (15) DVT prophylaxis: resumed warfarin Dispo: lives with in an apartment. Will return at discharge PT/OT evals with concern for patient safety due to confusion. Spouse has been very tired due to 's admission and his long hours at the hospital and this may have played a roll in his appearing to have some cognitive deficits as well. I did discuss these concerns with patient's son. I requested that in the interest of keeping patient safe, one of patient's children should stay with her and her over the next few days as they both recover from the hospitalization until they felt that they were safe to be back on their own, he verbalized his understanding and agreed. Home health also set up. Total Time Total Time Spent Total Time Spent (In Minutes): greater than 30 minutes Discharge Plan Discharge Items Patient Disposition: Home - Self-Care Reason For Visit: ABDOMINAL PAIN,NAUSEA AND VOMITING Discharge Diagnosis: left inguinal hernia repair Activity: As commented below Lifting: No more than 10 pounds Bathing Comment: ok to shower Driving/Machine Use: 1 week Non-emergency contact: Surgeon Call non-emergency contact if: you have any medication questions, you have a fever, your temperature is above 101.5 and your wound has increased redness Follow-up/Referrals: Fernando Anaya MD [Surgeon] - (Call to make an appt in 1 week) Celia Will DO [Primary Care Provider] - Diet: Regular and Heart Healthy Ambulatory Orders: Prothrombin Time INR (Routine) Timeframe: 20190510 Location: Determined by Patient Ordered By: Jovita Massey Attending Provider Instructions: You can take Tylenol as needed for pain as directed on the bottle. Your INR is slightly high. Please do not take your warfarin tonight. You should have your INR drawn by home health tomorrow and then call your doctor's office to see if you should resume your warfarin based on the results. Pending Studies at Discharge: No Stand-Alone Forms: My [facility] [employer], Smoking Cessation Medications and DC Order Prescriptions: Continued levothyroxine 150 mcg tablet 150 mcg PO DAILY Qty: 90 RF: 3 furosemide [Lasix] 40 mg tablet 40 mg PO .COMPLEX Qty: 180 RF: 1 meclizine 12.5 mg tablet 12.5 mg PO TID PRN (Reason: dizziness) Qty: 20 RF: 0 multivitamin Tablet 1 tab PO DAILY RF: 0 metoprolol succinate 200 mg Tablet Extended Release 24 Hr 200 mg PO QPM RF: 0 prednisone 5 mg Tablet 5 mg PO DAILY RF: 0 warfarin [Coumadin] 2.5 mg Tablet 2.5 mg PO 5XWK RF: 0 warfarin [Coumadin] 2.5 mg Tablet 5 mg PO 2XWK RF: 0 losartan 25 mg Tablet 25 mg PO DAILY RF: 0 magnesium chloride 64 mg Tablet,Delayed Release (Dr/Ec) 64 mg PO DAILY RF: 0 Caltrate 600 plus D 600 mg (1,500 mg)-800 unit Tablet,Chewable 1 tab PO DAILY RF: 0 potassium chloride 20 mEq tablet extended release 20 meq PO DAILY RF: 0 Discharge Orders: Discharge Order (Routine); Ordered 05/09/19 Ordered By: Jovita Oconnell Admission Data Admit Date/Time: 05/06/19 01:31 Attending Provider: Gary Can Admit Provider: Jay Booker Primary Care Provider: Celia Will Other Providers: Gary Can ; Jay Booker ; Fernando Anaya ; [facility]
== END 2019-05-09 13:49 | disposition home health service (06) | DRG 351 ==
LOC: ED 22:20 → SUATTDRO 05-06 01:31 → ASU 05-06 03:50 → 2S 05-06 03:55 → 3N 05-07 14:29

== ENCOUNTER 2022-07-03 08:05 | Inpatient (IN) ==
--- NOTE | 2022-07-03 08:16 | Emergency Department Note ---
Impression & Plan Acute UTI (urinary tract infection), Acute confusion, Generalized weakness, Closed head injury, Hypertensive urgency, Contusion of scalp ED Provider Note Name: CHRISTI UGARTE Age: 87 Sex: F Arrives Via: Ambulance Informant: Patient (poor historian), family ED Provider: Ugo Goldberg MD Chief Complaint: Fall Impression: As per impressions above Medical Decision Makin-year-old female with extensive past medical history who is on Xarelto arrives for evaluation following fall and head injury. Patient with 24 to 48 hours worsening weakness and multiple falls including eating help yesterday as well getting up. Arrives via EMS with prenotification thus taken directly to CT for trauma eval of head and neck. Fortunately no cervical or skull fracture or intracranial bleed. She has an unremarkable chest x-ray and pelvis x-ray. Labs are all. She does have a UTI on work-up. She is significantly hypertensive requiring multiple rounds of IV labetalol. In the setting of UTI generalized weakness significant hypertensive urgency and being on a blood thinner with multiple falls headache hospitalization would be indicated at this time. She and family are comfortable with this plan. She was given 2 g IV Rocephin and hospitalist consulted for further management. Prior Medical Record and Triage/Nursing Notes reviewed by Me Additional history obtained from family Differentials:Infection, dehydration, metabolic abnormality, hypo/hyperglycemia, electrolyte disturbance, anemia, hypoxia, cardiac sources, intracerebral event, toxicologic, neurologic, as well as other pathologies. Vital Signs: reviewed and remarkable for hypertension Interventions: Labetalol 10 mg IV x2, Rocephin 2 g IV Labs:Reviewed and remarkable for UA concerning for UTI mild troponin elevation nonspecific Imaging:CT of the head and cervical spine without contrast as per radiology posterior scalp hematoma no fracture no dislocation no intracranial hemorrhage 1 view chest x-ray no concerning findings per radiology. 1 view pelvis x-ray no concerning findings per radiology. EKG:As per my interpretation. Indication weakness. Ventricular paced rhythm at 70 bpm with a QTC of 486. There is no ectopy nor ischemia. When compared to an EKG of May 05, 2019 there is no significant change. Consults:Dr Dillon MEDELLIN Hospitalist Service Plan: Disposition:Hospitalization. Condition: Good History of Present Illness: 87-year-old female arrives for evaluation of head injury. Patient with some confusion and weakness over the last 24 to 48 hours. This morning she fell around 6 or 7 in the morning. Posterior head injury. No loss of consciousness but she has been very confused since then. She cannot member where she is or where she is from. Denies any headache, neck pain, chest pain, shortness of breath abdominal pain, hip pain or other concerning signs or symptoms. She is on Xarelto. Unknown if previous history of head bleeds or bleeding issues. Further information limited secondary to confusion. Arrives via EMS no interventions prior to arrival other than she was placed on 2 L nasal cannula due to O2 sats being in the low 90s. ROS: Unable to obtain due to patient's confusion and head injury. Past Medical History:See Below Past Surgical History:See Below Family History:See Below Social History:See Below Home Medications:See Below Allergies:nkda Vitals:Blood Pressure: 184/83, Pulse 75, RR 20, T 36.5C, O2 97% on RA Physical Exam: GENERAL: Patient is confused appearing and in minimal distress. HEAD: Large posterior hematoma EYES: No scleral icterus, unremarkable pupils. ENT: Mucous membranes moist, no nasal congestion. NECK: No masses appreciated, nomeningismus, trachea is midline. RESPIRATORY: No dyspnea. Clear to auscultation and equal bilaterally. No wheeze, no rhonchi. CARDIOVASCULAR: Regular rate and rhythm.No murmurs, rubs, gallops appreciated. GASTROINTESTINAL: Abdomen soft, non-tender, no peritonitis.Bowel sounds positi ve.No masses appreciated. BACK: No midline tenderness, no CVA tenderness EXTREMITIES: Normal motion all extremities, no cyanosis, ++ edema. NEUROLOGIC: Confused, no acute motor or sensory deficits, no focal weakness, cranial nerves grossly intact. SKIN: No rash, no jaundice, no diaphoresis. GCS: 14 ED Course: Times/Reassessments: Patient remains somewhat confused but awake interactive and in no distress. Family did arrive and we discussed findings and it seems she has decompensated quickly over the last day or so though so suspect UTI is p artly the cause. All are agreeable for hospitalization at this time. Ugo Goldberg MD Past Med/Surg History Medical History (Updated 07/03/22 @ 13:30 by Ugo Goldberg MD) Acute kidney failure (05/2019) Acute metabolic encephalopathy Altered mental status Ankle swelling Gustafson cyst Benign paroxysmal positional vertigo Breast cancer s/p left lumpectomy Cardiomyopathy Resolved. EF=55% 2016 Epigastric abdominal pain Fall Hypertension Hypomagnesemia Hypothyroid Incarcerated inguinal hernia Incarcerated right inguinal hernia Intractable nausea and vomiting LBBB (left bundle branch block) Left knee pain Leg swelling Normal coronary arteries (2000) Plantar fasciitis Right knee pain Small bowel obstruction UTI (urinary tract infection) UTI (urinary tract infection) Vitamin D deficiency Surgical History History of oophorectomy, unilateral History of radiofrequency ablation (RFA) procedure for cardiac arrhythmia S/P cataract extraction S/P cholecystectomy S/P lumpectomy of breast S/P ROMELIA (total abdominal hysterectomy) S/P thyroidectomy Family History Sister Polimagen Other Heart disease Social History Smoking Status: Former smoker Hx Alcohol Use: No Hx Substance Use: No Preferred Language: Jamaican Communication Ability: Effective Geriatric Social Work Professor Required: No Beliefs That Will Affect Care: None marital status: Current Living Situation: Family How many Children do You have: 3 Feels Safe at Home: Yes Assistive Devices: Walker Allergies Allergies Allergy/AdvReac Type Severity Reaction Status Date / Time No Known Drug Allergies Allergy Verified 02/25/22 10:53 Home Meds Home Medications Medication Instructions Recorded Confirmed magnesium chloride 64 mg 64 mg PO DAILY 05/11/18 07/03/22 (magnesium chloride) tablet,delayed release metoprolol succinate 200 mg 200 mg PO QPM 05/11/18 07/03/22 tablet,extended release 24 hr multivitamin 1 tab PO DAILY 05/11/18 07/03/22 prednisone 5 mg tablet 7 mg PO DAILY 02/21/20 07/03/22 Previous Rx's Medication Instructions Recorded levothyroxine 150 mcg tablet 150 mcg PO DAILY #90 tabs 02/26/19 losartan 50 mg tablet 50 mg PO DAILY #90 tabs 04/23/21 rivaroxaban 20 mg tablet (Xarelto) 20 mg PO DAILY #90 tabs 10/01/21 furosemide 40 mg tablet 60 mg PO DAILY edema #135 tabs 03/04/22 potassium chloride 20 mEq 20 meq PO DAILY #90 tabs 03/04/22 tablet,extended release Results & Data (ED) Vital Signs Vital Signs - 24 hr 07/03/22 08:20 07/03/22 08:37 07/03/22 08:31 Temperature 36.5 C Temperature Source Oral Pulse Rate 79 107 H Pulse Rate [Apical] 72 Pulse Rate from SpO2 Sensor 62 Respiratory Rate 24 24 30 H Blood Pressure 219/86 H Blood Pressure [Right Arm] 179/78 H Blood Pressure Mean 130 Blood Pressure Mean [Right Arm] 111 Pulse Oximetry 96 92 92 Oxygen Delivery Method Room Air Room Air Sepsis New/Unexplained Change in Mental Status Yes Sepsis Action Taken by Nursing Physician Notified 07/03/22 09:00 07/03/22 09:01 07/03/22 09:01 Temperature Temperature Source Pulse Rate 72 Pulse Rate [Apical] Pulse Rate from SpO2 Sensor 60 60 Respiratory Rate 23 22 Blood Pressure 175/87 H Blood Pressure [Right Arm] Blood Pressure Mean 116 Blood Pressure Mean [Right Arm] Pulse Oximetry 94 94 Oxygen Delivery Method Sepsis New/Unexplained Change in Mental Status Sepsis Action Taken by Nursing 07/03/22 09:30 07/03/22 09:32 07/03/22 09:32 Temperature Temperature Source Pulse Rate 68 62 Pulse Rate [Apical] Pulse Rate from SpO2 Sensor 61 65 Respiratory Rate 22 23 Blood Pressure 204/88 H Blood Pressure [Right Arm] Blood Pressure Mean 126 Blood Pressure Mean [Right Arm] Pulse Oximetry 93 94 Oxygen Delivery Method Room Air Room Air Sepsis New/Unexplained Change in Mental Status Sepsis Action Taken by Nursing 07/03/22 10:00 07/03/22 10:01 07/03/22 10:01 Temperature Temperature Source Pulse Rate 64 62 Pulse Rate [Apical] Pulse Rate from SpO2 Sensor 63 62 Respiratory Rate 20 28 H Blood Pressure 168/77 H Blood Pressure [Right Arm] Blood Pressure Mean 107 Blood Pressure Mean [Right Arm] Pulse Oximetry 94 94 Oxygen Delivery Method Room Air Sepsis New/Unexplained Change in Mental Status Sepsis Action Taken by Nursing 07/03/22 10:30 07/03/22 10:31 07/03/22 10:31 Temperature Temperature Source Pulse Rate 64 Pulse Rate [Apical] Pulse Rate from SpO2 Sensor 60 63 Respiratory Rate 26 H 20 Blood Pressure 121/67 Blood Pressure [Right Arm] Blood Pressure Mean 85 Blood Pressure Mean [Right Arm] Pulse Oximetry 98 Oxygen Delivery Method Room Air Sepsis New/Unexplained Change in Mental Status Sepsis Action Taken by Nursing 07/03/22 11:00 07/03/22 11:01 07/03/22 11:01 Temperature Temperature Source Pulse Rate 62 Pulse Rate [Apical] Pulse Rate from SpO2 Sensor Respiratory Rate 22 20 Blood Pressure 170/76 H Blood Pressure [Right Arm] Blood Pressure Mean 107 Blood Pressure Mean [Right Arm] Pulse Oximetry Oxygen Delivery Method Sepsis New/Unexplained Change in Mental Status Sepsis Action Taken by Nursing Laboratory Data Result diagrams: 07/03/22 08:32 07/03/22 08:32 Lab Results 07/03/22 07/03/22 07/03/22 Range/Units 08:32 08:32 08:32 WBC 11.81 H (4.8-10.8) K/ul RBC 4.36 (3.93-5.22) M/uL Hgb 13.4 (12.0-16.0) g/dl Hct 40.9 (34.1-44.9) % MCV 93.8 (80.0-100.0) fL MCH 30.7 (25.0-34.0) pg MCHC 32.8 (32.0-36.0) g/dL RDW Std Deviation 45.3 (36.4-46.3) fL RDW Coeff of Snow 13.1 (11.5-14.5) % Plt Count 250 (130-400) K/uL MPV 10.6 (9.4-12.3) fL Immature Gran % (Auto) 1.4 % Neut % (Auto) 80.2 % Lymph % (Auto) 9.0 % [place] % (Auto) 7.8 % Eos % (Auto) 1.1 % Baso % (Auto) 0.5 % Neut # (Auto) 9.48 H (1.4-6.5) K/uL Lymph # (Auto) 1.06 L (1.2-3.4) K/uL [place] # (Auto) 0.92 H (0.24-0.82) K/uL Eos # (Auto) 0.13 (0-0.50) K/uL Baso # (Auto) 0.06 (0-0.2) K/uL Immature Gran # (Auto) 0.16 H (0.00-0.02) K/uL PT 11.8 (9.0-12.0) Seconds INR 1.1 (0.9-1.1) APTT 26.7 (21.0-31.0) Seconds PTT Ratio 1.0 Sodium 139 (136-145) mmol/L Potassium 4.0 (3.5-5.1) mmol/L Chloride 106 (98-107) mmol/L Carbon Dioxide 25 (21-32) mmol/L Anion Gap 8 (3-11) BUN 21 (6-23) mg/dl Creatinine 0.93 (0.6-1.2) mg/dl Est Cr Clr Drug Dosing Not Reportable Est GFR ( Amer) 64.0 ml/min Est GFR (Non-Af Amer) 55.3 ml/min BUN/Creatinine Ratio 22.6 H (10-20) Glucose 117 H (70-99(Fasting)) mg/dl Calcium 10.7 H (8.5-10.1) mg/dl Magnesium 1.9 (1.7-2.4) mg/dl Total Bilirubin 1.1 H (0.2-1.0) mg/dl Direct Bilirubin 0.2 (0-0.2) mg/dl AST 24 (13-39) U/L ALT 16 (7-52) U/L Alkaline Phosphatase 75 (34-104) U/L Troponin I High Sens 24.2 H (0-14) pg/ml Total Protein 6.9 (6.0-8.3) gm/dl Albumin 3.9 (3.4-5.0) gm/dl Urine Color Urine Appearance (Clear) Urine pH (4.5-7.5) Ur Specific [place] (1.000-1.030) Urine Protein (Negative) Urine Glucose (UA) (Negative) Urine Ketones (Negative) Urine Blood (Negative) Urine Nitrite (Negative) Urine Bilirubin (Negative) Urine Urobilinogen (Negative) Ur Leukocyte Esterase (Negative) Urine WBC (Auto) (0-5) /hpf Urine RBC (Auto) (0-4) /hpf U Hyaline Cast (Auto) (0-5) /lpf U Epithel Cells (Auto) (0-5) /lpf Urine Bacteria (Auto) (Negative) Urine Crystals Urine Yeast SARS-CoV-2 (PCR) (Negative) Influenza Type A (PCR) (Neg) Influenza Type B (PCR) (Neg) RSV (RT-PCR) (Neg) 07/03/22 07/03/22 Range/Units 08:32 09:39 WBC (4.8-10.8) K/ul RBC (3.93-5.22) M/uL Hgb (12.0-16.0) g/dl Hct (34.1-44.9) % MCV (80.0-100.0) fL MCH (25.0-34.0) pg MCHC (32.0-36.0) g/dL RDW Std Deviation (36.4-46.3) fL RDW Coeff of [place] (11.5-14.5) % Plt Count (130-400) K/uL MPV (9.4-12.3) fL Immature Gran % (Auto) % Neut % (Auto) % Lymph % (Auto) % [place] % (Auto) % Eos % (Auto) % Baso % (Auto) % Neut # (Auto) (1.4-6.5) K/uL Lymph # (Auto) (1.2-3.4) K/uL [place] # (Auto) (0.24-0.82) K/uL Eos # (Auto) (0-0.50) K/uL Baso # (Auto) (0-0.2) K/uL Immature Gran # (Auto) (0.00-0.02) K/uL PT (9.0-12.0) Seconds INR (0.9-1.1) APTT (21.0-31.0) Seconds PTT Ratio Sodium (136-145) mmol/L Potassium (3.5-5.1) mmol/L Chloride (98-107) mmol/L Carbon Dioxide (21-32) mmol/L Anion Gap (3-11) BUN (6-23) mg/dl Creatinine (0.6-1.2) mg/dl Est Cr Clr Drug Dosing Est GFR ( Amer) ml/min Est GFR (Non-Af Amer) ml/min BUN/Creatinine Ratio (10-20) Glucose (70-99(Fasting)) mg/dl Calcium (8.5-10.1) mg/dl Magnesium (1.7-2.4) mg/dl Total Bilirubin (0.2-1.0) mg/dl Direct Bilirubin (0-0.2) mg/dl AST (13-39) U/L ALT (7-52) U/L Alkaline Phosphatase (34-104) U/L Troponin I High Sens (0-14) pg/ml Total Protein (6.0-8.3) gm/dl Albumin (3.4-5.0) gm/dl Urine Color Dark Yellow Urine Appearance Turbid A (Clear) Urine pH 6.5 (4.5-7.5) Ur Specific [place] 1.019 (1.000-1.030) Urine Protein 1+ H (Negative) Urine Glucose (UA) Negative (Negative) Urine Ketones Trace H (Negative) Urine Blood 1+ H (Negative) Urine Nitrite Positive A (Negative) Urine Bilirubin Negative (Negative) Urine Urobilinogen Negative (Negative) Ur Leukocyte Esterase 3+ H (Negative) Urine WBC (Auto) >30 H (0-5) /hpf Urine RBC (Auto) 0-4 (0-4) /hpf U Hyaline Cast (Auto) 5-10 H (0-5) /lpf U Epithel Cells (Auto) >30 H (0-5) /lpf Urine Bacteria (Auto) 4+ H (Negative) Urine Crystals Not Reportable Urine Yeast Not Reportable SARS-CoV-2 (PCR) NEGATIVE (Negative) Influenza Type A (PCR) Negative (Neg) Influenza Type B (PCR) Negative (Neg) RSV (RT-PCR) Negative (Neg) Administered Medications Lactated Ringer's (Lr) 1,000 mls @ 80 mls/hr IV .[id number] [facility] Stop: 07/04/22 00:14 Last Admin: 07/03/22 13:02 Dose: 80 mls/hr Documented By: KRYSTAL Discontinued Medications Ceftriaxone Sodium (Rocephin) 2,000 mg in 70 mls @ 140 mls/hr IV NOW STA Stop: 07/03/22 11:33 Last Infusion: 07/03/22 12:18 Dose: 0 mls/hr Documented By: Admin: 07/03/22 11:48 Dose: 140 mls/hr Documented By: KRYSTAL Labetalol HCl (Labetalol Hcl Iv 5 Mg/Ml 20ml) 10 mg IV NOW STA Stop: 07/03/22 08:33 Last Admin: 07/03/22 08:38 Dose: 10 mg Documented By: ZORA Co-signed By: KRYSTAL Labetalol HCl (Labetalol Hcl Iv 5 Mg/Ml 20ml) 10 mg IV NOW STA Stop: 07/03/22 09:57 Last Admin: 07/03/22 10:21 Dose: 10 mg Documented By: KRYSTAL Co-signed By: MILTON Losartan Potassium (Losartan Potassium 50 Mg Tab) 50 mg PO ONCE STA Stop: 07/03/22 11:42 Last Admin: 07/03/22 12:57 Dose: Not Given Documented By: KRYSTAL Metoprolol Succinate (Metoprolol Succ 50mg Ext Rel Tab) 200 mg PO NOW STA Stop: 07/03/22 11:42 Last Admin: 07/03/22 12:57 Dose: Not Given Documented By: KRYSTAL Metoprolol Tartrate (Metoprolol Tartrate 50 Mg Tab) 50 mg PO NOW STA Stop: 07/03/22 12:20 Last Admin: 07/03/22 13:00 Dose: 50 mg Documented By: KRYSTAL Imaging Data Radiologist's Impression: Cervical Spine CT 07/03/22 08:02 CT SCAN OF THE CERVICAL SPINE CLINICAL HISTORY: Fall. COMPARISON STUDY: CT of the cervical spine dated 02/21/2020. TECHNIQUE: CT scan of the cervical spine is performed from the skull base to the upper thoracic spine. Images are reviewed in the axial, sagittal, and coronal planes. IV contrast was not administered for this examination. A dose lowering technique was utilized adhering to the principles of ALARA. FINDINGS: Skeletal structures: The skeletal structures are osteopenic. There is no evidence of fracture or subluxation involving the cervical spine. Vertebral body height and alignment are maintained. Small anterior osteophytes are seen throughout. A hemangioma is noted in the body of C6. The odontoid process and lateral masses are intact. The atlantoaxial articulation is preserved noting mild productive degenerative change. The spinous processes appear intact. Intervertebral discs: There is mild disc space narrowing at C5-C6 and C6-C7. Central canal: A large posterior disc osteophyte complex at C5-C6 likely contribute to acquired compromise of the central canal. Soft tissues: The prevertebral and paraspinous soft tissues are within normal limits. There is atherosclerotic calcification of the carotid bulbs. Pacemaker leads are seen at the left thoracic inlet. The thyroid gland is atrophic. Calvarium: The visualized calvarium at the skull base appears intact. Brain parenchyma: Partially visualized brain parenchyma the skull base is within normal limits noting age-related involutional change. Sinuses and mastoids: The visualized paranasal sinuses are clear. The mastoid air cells are well pneumatized. Lung apices: Clear as visualized. IMPRESSION: 1. There is no evidence of fracture or subluxation involving the cervical spine. 2. Osteopenia and mild spondylotic change as above. ACT 112: Negative or not required by law. Electronically signed by: Kendell Wheeler M.D. 07/03/2022 8:[address] 07/03/22 08:02 CT head/brain wo con CLINICAL HISTORY: Trauma Technique: Contiguous axial CT images of the head were acquired from the base of the skull to the vertex without intravenous contrast administration. Images were viewed in brain, subdural and bone windows. Automated dose lowering techniques and/or adjustment according to patient size were utilized for this exam. Comparison: Comparison is made to CT head 02/21/2020 Findings: The ventricles, basal cisterns, and cerebral sulci are normal. There is no acute intracranial hemorrhage or evidence of acute territorial infarction. Neither mass effect, shift of the midline structures, nor abnormal extra-axial fluid collections are shown. Imaged portions of the paranasal sinuses and mastoid air cells are clear. The orbits appear normal. There are no acute fractures of the calvaria. Scalp swelling is seen in the left posterior soft tissues. Impression: No acute intracranial hemorrhage or skull fractures. Scalp swelling is seen in the left posterior soft tissues. ACT 112: Negative or not required by law. Electronically signed by: Nehemiah Monk M.D. 07/03/2022 8:30 AM Chest X-Ray 07/03/22 08:03 SINGLE VIEW CHEST CLINICAL HISTORY: Trauma. FINDINGS: An AP, portable, upright chest radiograph is compared to study dated 05/05/2019. Correlation is made with chest CT dated 10/02/2013. The examination is degraded by portable technique and patient rotation. A cardiac AICD is unchanged in position and partially obscures the left mid chest. The heart is enlarged noting atherosclerotic calcification of the thoracic aorta. The pulmonary vasculature is noncongested. Chronic interstitial thickening is similar to previous. The lungs and pleural spaces are otherwise clear noting bibasilar scarring/atelectasis No pneumothorax is seen. The skeletal structures are osteopenic. The bony thorax is grossly intact. IMPRESSION: 1. Cardiomegaly and AICD without radiographic evidence of congestive failure. 2. No airspace consolidation or large pleural effusion is identified. ACT 112: Negative or not required by law. Electronically signed by: Kendell Wheeler M.D. 07/03/2022 8:54 AM Pelvis X-Ray 07/03/22 08:16 XR pelvis 1-2V routine CLINICAL HISTORY: trauma TECHNIQUE: A single frontal view of the pelvis was obtained. Comparison: Comparison is made to femur radiograph 05/11/2018 FINDINGS: There is no evidence of an acute fracture. Joint spaces are well-preserved. No soft tissue abnormality is seen. IMPRESSION: Degenerative changes without evidence of acute abnormality. ACT 112: Negative or not required by law. Electronically signed by: Nehemiah Monk M.D. 07/03/2022 8:42 AM Discharge Plan Visit Data Chief Complaint: Fall Stated Complaint: FALL ED Provider: Ugo Goldberg Discharge Problem: Acute UTI (urinary tract infection), Acute confusion, Generalized weakness, Closed head injury, Hypertensive urgency, Contusion of scalp Patient Disposition: Admitted As Inpatient Discharge Instructions Interventions: ED Discharge Assessment Last Done: 07/03/22 13:07 : Closed head injury Qualifiers: Encounter type: initial encounter Qualified Code(s): S09.90XA - Unspecified injury of head, initial encounter Contusion of scalp Qualifiers: Encounter type: initial encounter Qualified Code(s): S00.03XA - Contusion of scalp, initial encounter
--- NOTE | 2022-07-03 08:23 | CT Scan Report ---
CT SCAN OF THE CERVICAL SPINE CLINICAL HISTORY: Fall. COMPARISON STUDY: CT of the cervical spine dated 02/21/2020. TECHNIQUE: CT scan of the cervical spine is performed from the skull base to the upper thoracic spine . Images are reviewed in the axial, sagittal, and coronal planes. IV contrast was not administered fo r this examination. A dose lowering technique was utilized adhering to the principles of ALARA. FINDINGS: Skeletal structures: The skeletal structures are osteopenic. There is no evidence of fracture or subl uxation involving the cervical spine. Vertebral body height and alignment are maintained. Small anter ior osteophytes are seen throughout. A hemangioma is noted in the body of C6. The odontoid process an d lateral masses are intact. The atlantoaxial articulation is preserved noting mild productive degene rative change. The spinous processes appear intact. Intervertebral discs: There is mild disc space narrowing at C5-C6 and C6-C7. Central canal: A large posterior disc osteophyte complex at C5-C6 likely contribute to acquired compr omise of the central canal. Soft tissues: The prevertebral and paraspinous soft tissues are within normal limits. There is athero sclerotic calcification of the carotid bulbs. Pacemaker leads are seen at the left thoracic inlet. Th e thyroid gland is atrophic. Calvarium: The visualized calvarium at the skull base appears intact. Brain parenchyma: Partially visualized brain parenchyma the skull base is within normal limits noting age-related involutional change. Sinuses and mastoids: The visualized paranasal sinuses are clear. The mastoid air cells are well pneu matized. Lung apices: Clear as visualized. IMPRESSION: 1. There is no evidence of fracture or subluxation involving the cervical spine. 2. Osteopenia and mild spondylotic change as above. ACT 112: Negative or not required by law. Electronically signed by: Kendell Wheeler M.D. 07/03/2022 8:21 AM
[2022-07-03] MEDS ORDERED: LABETALOL HCL IV 5 MG/ML 20ML IV STA ×3 (08:32→17:19)
--- NOTE | 2022-07-03 08:32 | CT Scan Report ---
CT head/brain wo con CLINICAL HISTORY: Trauma Technique: Contiguous axial CT images of the head were acquired from the base of the skull to the alex praneeth without intravenous contrast administration. Images were viewed in brain, subdural and bone [facility] . Automated dose lowering techniques and/or adjustment according to patient size were utilized for this exam. Comparison: Comparison is made to CT head 02/21/2020 Findings: The ventricles, basal cisterns, and cerebral sulci are normal. There is no acute intracranial hemorrh age or evidence of acute territorial infarction. Neither mass effect, shift of the midline structures , nor abnormal extra-axial fluid collections are shown. Imaged portions of the paranasal sinuses and mastoid air cells are clear. The orbits appear normal. There are no acute fractures of the calvaria. Scalp swelling is seen in the left posterior soft tiss ues. Impression: No acute intracranial hemorrhage or skull fractures. Scalp swelling is seen in the left posterior sof t tissues. ACT 112: Negative or not required by law. Electronically signed by: Nehemiah Monk M.D. 07/03/2022 8:30 AM
[2022-07-03 08:39] LABS: Basophils # (auto) 0.06 K/uL (0-0.2); Basophils % (auto) 0.5 %; Eosinophils # (auto) 0.13 K/uL (0-0.50); Eosinophils % (auto) 1.1 %; Hematocrit (blood only) 40.9 % (34.1-44.9); Hemoglobin 13.4 g/dl (12.0-16.0); Immature Granulocytes # (auto) 0.16 K/uL (0.00-0.02); Immature Granulocytes % (auto) 1.4 %; Lymphocytes # (auto) 1.06 K/uL (1.2-3.4); Mean Corpuscular Hemoglobin 30.7 pg (25.0-34.0); Mean Corpuscular Hgb Conc 32.8 g/dL (32.0-36.0); Mean Corpuscular Volume 93.8 fL (80.0-100.0); Mean Platelet Volume 10.6 fL (9.4-12.3); Monocytes # (auto) 0.92 K/uL (0.24-0.82); Monocytes % (auto) 7.8 %; Neutrophils # (auto) 9.48 K/uL (1.4-6.5); Neutrophils % (auto) 80.2 %; Platelet Count 250 K/uL (130-400); RDW Coefficient of Variation 13.1 % (11.5-14.5); RDW Standard Deviation 45.3 fL (36.4-46.3); Red Blood Count 4.36 M/uL (3.93-5.22); White Blood Count 11.81 K/ul (4.8-10.8)
--- NOTE | 2022-07-03 08:43 | XRay Report ---
XR pelvis 1-2V routine CLINICAL HISTORY: trauma TECHNIQUE: A single frontal view of the pelvis was obtained. Comparison: Comparison is made to femur radiograph 05/11/2018 FINDINGS: There is no evidence of an acute fracture. Joint spaces are well-preserved. No soft tissue abnormali ty is seen. IMPRESSION: Degenerative changes without evidence of acute abnormality. ACT 112: Negative or not required by law. Electronically signed by: Nehemiah Monk M.D. 07/03/2022 8:42 AM
[2022-07-03 08:54] LABS: INR 1.1 (0.9-1.1); Partial Thromboplastin Time 26.7 Seconds (21.0-31.0); Prothrombin Time 11.8 Seconds (9.0-12.0)
--- NOTE | 2022-07-03 08:55 | XRay Report ---
SINGLE VIEW CHEST CLINICAL HISTORY: Trauma. FINDINGS: An AP, portable, upright chest radiograph is compared to study dated 05/05/2019. Correlatio n is made with chest CT dated 10/02/2013. The examination is degraded by portable technique and patien t rotation. A cardiac AICD is unchanged in position and partially obscures the left mid chest. The h eart is enlarged noting atherosclerotic calcification of the thoracic aorta. The pulmonary vasculatur e is noncongested. Chronic interstitial thickening is similar to previous. The lungs and pleural spac es are otherwise clear noting bibasilar scarring/atelectasis No pneumothorax is seen. The skeletal st ructures are osteopenic. The bony thorax is grossly intact. IMPRESSION: 1. Cardiomegaly and AICD without radiographic evidence of congestive failure. 2. No airspace consolidation or large pleural effusion is identified. ACT 112: Negative or not required by law. Electronically signed by: Kendell Wheeler M.D. 07/03/2022 8:54 AM
[2022-07-03 09:07] LABS: Troponin I High Sensitivity 24.2 pg/ml (0-14)
--- NOTE | 2022-07-03 09:13 | Emergency Department Note ---
ED Visit Note I personally performed a history and examined the patient in conjunction with Dr. Goldberg. Additional information regarding the history, physical, assessment, and plan were discussed with supervising attending physician and are noted in their ED visit note. Resident Activity Tracking Resident Involvement: Resident Care Provided Care Provided: Adult ED
[2022-07-03 09:18] LABS: Influenza A virus by PCR Negative (Neg); Influenza B virus by PCR Negative (Neg); RSV by PCR Negative (Neg); SARS CoV2 RNA(COVID-19) Ceph NEGATIVE (Negative)
[2022-07-03 09:24] LABS: Alanine Aminotransferase 16 U/L (7-52); Albumin Level 3.9 gm/dl (3.4-5.0); Alkaline Phosphatase 75 U/L (34-104); Anion Gap 8 (3-11); Aspartate Aminotransferase 24 U/L (13-39); BUN Creatinine Ratio 22.6 (10-20); Bilirubin Direct 0.2 mg/dl (0-0.2); Bilirubin,Total 1.1 mg/dl (0.2-1.0); Blood Urea Nitrogen 21 mg/dl (6-23); Calcium 10.7 mg/dl (8.5-10.1); Carbon Dioxide 25 mmol/L (21-32); Chloride 106 mmol/L (98-107); Est GFR (Non-African American) 55.3 ml/min; Glucose 117 mg/dl (70-99(Fasting)); Magnesium 1.9 mg/dl (1.7-2.4); Sodium 139 mmol/L (136-145); Total Protein 6.9 gm/dl (6.0-8.3)
--- NOTE | 2022-07-03 09:47 | Electrocardiogram Report ---
Test Reason : Blood Pressure : / mmHG Vent. Rate : 070 BPM Atrial Rate : 058 BPM P-R Int : 000 ms QRS Dur : 142 ms QT Int : 450 ms P-R-T Axes : 000 191 012 degrees QTc Int : 486 ms Poor data quality, interpretation may be adversely affected Ventricular-paced rhythm Biventricular pacemaker detected Abnormal ECG When compared with ECG of 05-MAY-2019 23:17, Vent. rate has increased BY 5 BPM Confirmed by Junior Alcantara ([id number]) on 07/03/2022 9:46:47 AM Referred By: ED Confirmed By:Franki Alcantara
[2022-07-03 10:51] LABS: Appearance Urine Turbid (Clear); Bacteria Urine Automated 4+ (Negative); Bilirubin Urine Negative (Negative); Blood Urine 1+ (Negative); Color Urine Dark Yellow; Epithelial Cell Urine Auto >30 /lpf (0-5); Glucose Urine UA Negative (Negative); Ketones Urine Trace (Negative); Leukocyte Esterase Urine 3+ (Negative); Nitrite Urine Positive (Negative); Protein Urine 1+ (Negative); Specific Gravity Urine 1.019 (1.000-1.030); Urobilinogen Urine Negative (Negative); WBC Urine Automated >30 /hpf (0-5); pH Urine 6.5 (4.5-7.5)
[2022-07-03] MEDS ORDERED: cefTRIAXone SODIUM 2,000 MG/70 ML BAG IV STA (11:04)
[2022-07-03 11:06] LABS: RBC Urine Automated 0-4 /hpf (0-4)
--- NOTE | 2022-07-03 11:13 | History & Physical Report ---
Date of Service July 03, 2022 Assessment & Plan (1) Fall: Plan: -Admit to med/tele -Patient is currently afebrile, hypertensive at 170/76, and stable on RA -Patient has sustained multiple falls over the past 48 hours with the latest being this am -Initial CT of the head was negative for acute changes, the rest of her trauma workup was also negative -Patient does have a large posterior scalp hematoma from her fall this am but no other trauma on exam -Son is unsure how long she was down this am but thinks it could have been a few hours, will get a CK level now -Fall precautions ordered, will have the patient evaluated by PT/OT while admitted -Continue to monitor on tele and pulse oximetry (2) AMS (altered mental status): Plan: -At this time the cause of the patient's AMS is unknown but the differential is broad at this time including but not limited to possible ischemia or embolic stroke, current UTI and dehydration, metabolic derangement, hypertensive encephalopathy and other possible neurologic causes such as dementia -CT of the head was negative for acute findings in the ED. At the time of the exam the patient is still very confused and slurring words but no other focal defects. -I spoke with our MRI staff regarding her Pacemaker, unfortunately it is not MRI compatible -At this time there is high suspicion for a recent ischemic or embolic stroke causing her falls and confusion, would at least repeat her CT of the head in the am to ensure she is still without hemorrhage; will order am CT now -Will continue the rest of her stroke workup with repeat TTE with bubble study, am fasting lipid panel and A1c -Will obtain bedside dysphagia screen and start aspiration/fall/seizure precautions -Q4H neuro checks, would repeat CT head state for any new concerning findings -Continue ceftriaxone for now for her UTI, follow blood and urine cultures -Will obtain at STAT lactate, TSH, and blood cultures now -Will give 1 bag of LR now as she appears dehydrated on exam, hold her lasix today and consider restarting tomorrow if no longer dehydrated -Will start with a clear liquid diet -AM CBC, CMP, and mag (3) UTI (urinary tract infection): Plan: -Noted on UA this am -Given 1 dose of ceftriaxone in the ED, continue with ceftriaxone daily for now -Tailor abx to urine culture and sensitivities (4) Elevated troponin: Plan: -Initial trop elevated at 24, patient is asymptomatic -No acute ECG changes noted -Likely due to demand, will repeat another now -Monitor on tele (5) Chronic combined systolic and diastolic CHF (congestive heart failure): Plan: -Follows with cardiology and the heart failure team -Last TTE was in 2017 with LVEF 0f 35-40% -Some congestive findings on CXR but otherwise examines volume down -Will give 1 bag of LR and continue to monitor volume status -Will continue her daily lasix tomorrow (6) Permanent atrial fibrillation: Plan: -Currently rate controlled -Continue metoprolo -Hold Xarelto at least for today due to increased risk of brain hemorrhage, family is in agreement -Can restart tomorrow if repeat CT head is negative (7) Hypertension: Plan: -Noted to be significantly hypertensive on arrival to the ED with systolics in 220's -Initial her BP fell to 121/67 after 2 doses of 10 mg IV labetalol in the ED -At the time of the admission the patient's blood pressure is back to 170/76 -Normally on metorolol succinate 200 mg PO daily and 50 mg PO Losartan daily, son confirmed she has not had her am meds yet today -For now will give her 50 mg PO metoprolol Tartrate to avoid dropping her BP too rapidly again -Will hold her Losartan and plan to restart her metoprolol Succinate tomorrow am -If stable tomorrow could also consider restarting her Losartan -Will order prn IV hydralazine for systolic BP > 180 mmhg (8) Hypothyroid: Plan: -Will follow TSH ordered on admission -Continue levothyroxine (9) PMR (polymyalgia rheumatica): Plan: -Continue 7 mg PO prednisone daily (10) Prediabetes: Plan: -Not currently on antihyperglycemics -Follow AM A1c -For now will order q6h BSG checks and a sliding scale with a correction factor of 45 and carb ratio of 15 Plan The patient was discussed with Dr. Carranza at the time of the admission History of Present Illness Chief Complaint: Fall Primary Care Provider: Celia Will DO Rosio is an 87 year old female with a past medical history including polymyalgia rheumatica, hypertension, hypothyroidism, combined systolic/diastolic CHF (LVEF of 35-40%, mild left ventricle dilation, severely enlarged left and right atria, and mild miltral regurgitation as of 2017), S/P biventricular AICD, breast cancer, permanent atrial fibrillation S/P AV Emmy ablation in 2017 on Xarelto, and prediabetes who presented to the [facility] ED on 07/03/22 via EMS from home after a mechanical fall. Of note, the patient did hit the back of her head and was noted to be confused after. EMS found the patient to be hypertensive at 224/220, no interventions were given prior to her arrival to the ED besides placed her on 2L NC. In the ED the patient was found to be afebrile, hypertensive at 219/86, and stable on RA. Labs were remarkable for a leukocytosis of 11.81 with left shift of 9.48, stable Hgb at 13.4 with platelets of 250, INR of 1.1, stable cr of 0.93, calcium of 10.7 otherwise stable electrolytes, glucose of 117, total bili of 1.1, direct bili of 0.2 otherwise stable liver function, initial high sensitivity troponin of 24.2, UA showing positive nitrites, 3+ Leukocyte esterase, and covid/influenza/RSV negative. CT of the head was read as No acute intracranial hemorrhage or skull fractures. Scalp swelling is seen in the left posterior soft tissues.. CT of the cervical spine was read as 1. There is no evidence of fracture or subluxation involving the cervical spine. 2. Osteopenia and mild spondylotic change as above.. Chest xray was read as 1. Cardiomegaly and AICD without radiographic evidence of congestive failure. 2. No airspace consolidation or large pleural effusion is identified.. Pelvis xray was read as Degenerative changes without evidence of acute abnormality.. The patient was given 2 doses of 10 mg Iv labetalol and her blood pressure improved to 121/67. Prior to admission the patient was given a dose of Ceftriaxone for her UTI. At the time of the exam the patient was resting comfortably in bed in no acute distress with her son sitting bedside. History was obtained from the patient's son due to the patient's current confusion. Her son states that the patient has had multiple falls and not acting herself over the past 48-72 hours. Her son states that he last saw her on and she had been acting herself. When asked about her baseline mental status her son states that she is normally alert and oriented to self, close contacts, and at least year. However, her son did not there have been times in the recent past that she has intermittent confusion. Last night the patient had a fall from standing, they are unsure if she hit her head or lost consciousness as the patient lives with her . The son's brother went over to the patient's house and helped the patient get up and into bed. Her son today thinks she was down on the ground for maybe an hour before their father called them for help. This am the patient had another fall from standing, this time hitting the back of her head. Again, they are unsure if the patient lost consciousness. Her son at bedside states that he thinks she was down for a few hours prior to their father calling them to help him get her up. Her son at bedside states that she has not been ill recently and has had no recent medication changes. He has been happy because her lower extremity swelling has been well-controlled recently. I explained that we would ideally get an MRI of the brain for further assessment but I will need to see if her pacemaker is MRI compatible. I spoke tothe patient's son regarding code status as she is confused during my exam. He confirmed that the patient is a DNR/DNI. Please refer to Dr. Carranza's attestation for any changes to the treatment plan Allergies Allergy/AdvReac Type Severity Reaction Status Date / Time No Known Drug Allergies Allergy Verified 02/25/22 10:53 Home Medications Medication Instructions Recorded Confirmed Type magnesium chloride 64 mg 64 mg PO DAILY 05/11/18 07/03/22 History (magnesium chloride) tablet,delayed release metoprolol succinate 200 mg 200 mg PO QPM 05/11/18 07/03/22 History tablet,extended release 24 hr multivitamin 1 tab PO DAILY 05/11/18 07/03/22 History levothyroxine 150 mcg tablet 150 mcg PO DAILY #90 tabs 02/26/19 07/03/22 Rx prednisone 5 mg tablet 7 mg PO DAILY 02/21/20 07/03/22 History losartan 50 mg tablet 50 mg PO DAILY #90 tabs 04/23/21 07/03/22 Rx rivaroxaban 20 mg tablet (Xarelto) 20 mg PO DAILY #90 tabs 10/01/21 07/03/22 Rx furosemide 40 mg tablet 60 mg PO DAILY edema #135 tabs 08/29/22 12/28/22 Rx potassium chloride 20 mEq 20 meq PO DAILY #90 tabs 03/04/22 07/03/22 Rx tablet,extended release Past Med/Surg History Medical History (Updated 07/03/22 @ 12:25 by Butch Davison PA-C) Acute kidney failure (05/2019) Acute metabolic encephalopathy Altered mental status Ankle swelling Gustafson cyst Benign paroxysmal positional vertigo Breast cancer s/p left lumpectomy Cardiomyopathy Resolved. EF=55% 2016 Epigastric abdominal pain Fall Hypertension Hypomagnesemia Hypothyroid Incarcerated inguinal hernia Incarcerated right inguinal hernia Intractable nausea and vomiting LBBB (left bundle branch block) Left knee pain Leg swelling Normal coronary arteries (2000) Plantar fasciitis Right knee pain Small bowel obstruction UTI (urinary tract infection) UTI (urinary tract infection) Vitamin D deficiency Surgical History History of oophorectomy, unilateral History of radiofrequency ablation (RFA) procedure for cardiac arrhythmia S/P cataract extraction S/P cholecystectomy S/P lumpectomy of breast S/P ROMELIA (total abdominal hysterectomy) S/P thyroidectomy Family History Sister Polio Other Heart disease Social History Smoking Status: Former smoker Hx Alcohol Use: No Hx Substance Use: No Preferred Language: Palestinian Communication Ability: Effective [employer] Required: No Beliefs That Will Affect Care: None marital status: Current Living Situation: Family How many Children do You have: 3 Feels Safe at Home: Yes Assistive Devices: Walker Review of Systems Review of Systems: Denies current fever, chills, headache, changes in vision, hearing, taste, and smell, chest pain, SOB, cough, abdominal pain, nausea, vomiting, diarrhea, hematemesis, melena, dysuria, hematuria, All systems have been reviewed and are otherwise negative. Physical Exam Physical Exam: Physical Exam: General: In no acute distress, stated age, well-nourished, good hygiene, pleasantly confused at the time of the exam HEENT: patient with a large hematoma on the posterior scalp, no scleral icterus, pupils around round, symmetrical, and reactive to light, Dry mucus membranes, trachea midline, no thyromegaly Chest/Pulm: No respiratory distress, symmetrical chest expansion, clear breath sounds throughout Cardiac: irregular rate and rhythm, no murmurs noted Abdomen: Negative for ascites and bruising, normoactive bowel sounds, soft, non-tender to palpation throughout Musculoskeletal: Symmetrical and without signs of acute trauma, upper and lower extremities with full ROM, no atrophy, spasticity, or flaccidity Extremities: Radial, dorsalis pedis, and posterior tibial pulses are intact and symmetrical, no edema noted in the BL LE's Skin: Warm, dry, no rashes , lesions, or scars noted, no other bruising or trauma besides the large posterior scalp hematoma Neuro: Alert and oriented to person only, currently pleasantly confused and follows commands approximately 50% of the time during the exam, no focal defects, CN II-XII tested and intact, symmetrical strength in the BL upper and lower extremities Psych: No acute distress, calm, pleasantly confused Results & Data Results & Data ([facility]) Vital Signs (Past 12 Hours) Vital Signs Temp Pulse Pulse Resp BP BP Pulse Ox 07/03/22 10:31 121/67 07/03/22 10:31 20 07/03/22 10:30 64 26 H 98 07/03/22 10:01 62 28 H 94 07/03/22 10:01 168/77 H 07/03/22 10:00 64 20 94 07/03/22 09:32 204/88 H 07/03/22 09:32 62 23 94 07/03/22 09:30 68 22 93 07/03/22 09:01 22 94 07/03/22 09:01 175/87 H 07/03/22 09:00 72 23 94 07/03/22 08:31 107 H 30 H 92 07/03/22 08:37 72 24 179/78 H 92 07/03/22 08:20 36.5 C 79 24 219/86 H 96 O2 Del Method 07/03/22 10:31 07/03/22 10:31 07/03/22 10:30 Room Air 07/03/22 10:01 Room Air 07/03/22 10:01 07/03/22 10:00 07/03/22 09:32 07/03/22 09:32 Room Air 07/03/22 09:30 Room Air 07/03/22 09:01 07/03/22 09:01 07/03/22 09:00 07/03/22 08:31 07/03/22 08:37 Room Air 07/03/22 08:20 Room Air Laboratory Results Abnormal lab results 07/03/22 07/03/22 07/03/22 Range/Units 08:32 08:32 09:39 WBC 11.81 H (4.8-10.8) K/ul Neut # (Auto) 9.48 H (1.4-6.5) K/uL Lymph # (Auto) 1.06 L (1.2-3.4) K/uL [place] # (Auto) 0.92 H (0.24-0.82) K/uL Immature Gran # (Auto) 0.16 H (0.00-0.02) K/uL BUN/Creatinine Ratio 22.6 H (10-20) Glucose 117 H (70-99(Fasting)) mg/dl Calcium 10.7 H (8.5-10.1) mg/dl Total Bilirubin 1.1 H (0.2-1.0) mg/dl Troponin I High Sens 24.2 H (0-14) pg/ml Urine Appearance Turbid A (Clear) Urine Protein 1+ H (Negative) Urine Ketones Trace H (Negative) Urine Blood 1+ H (Negative) Urine Nitrite Positive A (Negative) Ur Leukocyte Esterase 3+ H (Negative) Urine WBC (Auto) >30 H (0-5) /hpf U Hyaline Cast (Auto) 5-10 H (0-5) /lpf U Epithel Cells (Auto) >30 H (0-5) /lpf Urine Bacteria (Auto) 4+ H (Negative) Diagnostic Findings Cervical Spine CT 07/03/22 08:02 CT SCAN OF THE CERVICAL SPINE CLINICAL HISTORY: Fall. COMPARISON STUDY: CT of the cervical spine dated 02/21/2020. TECHNIQUE: CT scan of the cervical spine is performed from the skull base to the upper thoracic spine. Images are reviewed in the axial, sagittal, and coronal planes. IV contrast was not administered for this examination. A dose lowering technique was utilized adhering to the principles of ALARA. FINDINGS: Skeletal structures: The skeletal structures are osteopenic. There is no evidence of fracture or subluxation involving the cervical spine. Vertebral body height and alignment are maintained. Small anterior osteophytes are seen throughout. A hemangioma is noted in the body of C6. The odontoid process and lateral masses are intact. The atlantoaxial articulation is preserved noting mild productive degenerative change. The spinous processes appear intact. Intervertebral discs: There is mild disc space narrowing at C5-C6 and C6-C7. Central canal: A large posterior disc osteophyte complex at C5-C6 likely cont ribute to acquired compromise of the central canal. Soft tissues: The prevertebral and paraspinous soft tissues are within normal limits. There is atherosclerotic calcification of the carotid bulbs. Pacemaker leads are seen at the left thoracic inlet. The thyroid gland is atrophic. Calvarium: The visualized calvarium at the skull base appears intact. Brain parenchyma: Partially visualized brain parenchyma the skull base is within normal limits noting age-related involutional change. Sinuses and mastoids: The visualized paranasal sinuses are clear. The mastoid air cells are well pneumatized. Lung apices: Clear as visualized. IMPRESSION: 1. There is no evidence of fracture or subluxation involving the cervical spine. 2. Osteopenia and mild spondylotic change as above. ACT 112: Negative or not required by law. Electronically signed by: Kendell Wheeler M.D. 07/03/2022 8:[address] 07/03/22 08:02 CT head/brain wo con CLINICAL HISTORY: Trauma Technique: Contiguous axial CT images of the head were acquired from the base of the skull to the vertex without intravenous contrast administration. Images were viewed in brain, subdural and bone windows. Automated dose lowering techniques and/or adjustment according to patient size were utilized for this exam. Comparison: Comparison is made to CT head 02/21/2020 Findings: The ventricles, basal cisterns, and cerebral sulci are normal. There is no acute intracranial hemorrhage or evidence of acute territorial infarction. Neither mass effect, shift of the midline structures, nor abnormal extra-axial fluid collections are shown. Imaged portions of the paranasal sinuses and mastoid air cells are clear. The orbits appear normal. There are no acute fractures of the calvaria. Scalp swelling is seen in the left posterior soft tissues. Impression: No acute intracranial hemorrhage or skull fractures. Scalp swelling is seen in the left posterior soft tissues. ACT 112: Negative or not required by law. Electronically signed by: Nehemiah Monk M.D. 07/03/2022 8:30 AM Chest X-Ray 07/03/22 08:03 SINGLE VIEW CHEST CLINICAL HISTORY: Trauma. FINDINGS: An AP, portable, upright chest radiograph is compared to study dated 05/05/2019. Correlation is made with chest CT dated 10/02/2013. The examination is degraded by portable technique and patient rotation. A cardiac AICD is unchanged in position and partially obscures the left mid chest. The heart is enlarged noting atherosclerotic calcification of the thoracic aorta. The pulmonary vasculature is noncongested. Chronic interstitial thickening is similar to previous. The lungs and pleural spaces are otherwise clear noting bibasilar scarring/atelectasis No pneumothorax is seen. The skeletal structures are osteopenic. The bony thorax is grossly intact. IMPRESSION: 1. Cardiomegaly and AICD without radiographic evidence of congestive failure. 2. No airspace consolidation or large pleural effusion is identified. ACT 112: Negative or not required by law. Electronically signed by: Kendell Wheeler M.D. 07/03/2022 8:54 AM Pelvis X-Ray 07/03/22 08:16 XR pelvis 1-2V routine CLINICAL HISTORY: trauma TECHNIQUE: A single frontal view of the pelvis was obtained. Comparison: Comparison is made to femur radiograph 05/11/2018 FINDINGS: There is no evidence of an acute fracture. Joint spaces are well-preserved. No soft tissue abnormality is seen. IMPRESSION: Degenerative changes without evidence of acute abnormality. ACT 112: Negative or not required by law. Electronically signed by: Nehemiah Monk M.D. 07/03/2022 8:42 AM ECG Additional Comments: Poor data quality, interpretation may be adversely affected Ventricular- paced rhythm Biventricular pacemaker detected Abnormal ECG When compared with ECG of 05-MAY-2019 23:17, Vent. rate has increased BY 5 BPM Confirmed by Junior Alcantara ([id number]) on 07/03/2022 9:46:47 AM Code Status & VTE Plan Code Status DNR/DNI VTE Prophylaxis Plan VTE Prophylaxis will be ordered: Yes Supervising Physician Co-Signing Physician Notes Patient was seen and examined independently I discussed the case with Butch HERNANDEZ I reviewed pertinent past medical social family history and also the plan of care and agree with the plan of care. Patient is demented she is only oriented to person hematoma how old she is she has contusion to the back of her head but no intracranial injuries on imaging she had hypertensive urgency on presentation chronically anticoagulated Xarelto Patient has an abnormal urinalysis on presentation pending cultures on ceftriaxone from the ER. Examination other then the confusion and the scalp hematoma is benign Patient admitted for metabolic encephalopathy from urinary tract infection present on admission plus minus concussion Cultures and treating urinary tract infection Hypertensive urgency with confusion reinstituting antihypertensive medications with stroke evaluation as hypertension may be a sign of cerebral ischemia. Unfortunately pacemaker defibrillator is not MRI compatible and repeat CT scan imaging will be used to determine if there is ischemic stroke not seen on initial presentation PT OT evaluation Any exceptions will be noted below PG Care Time/CCT Total # of Minutes Spent Total Time Spent with Patient: Total time spent is greater than 50% in coordination of care (as documented) at patient's floor/unit and/or counseling patient: Coding [place] [address] Initial Inpt Care Lvl 3 Patient Type Established Medical Decision Making High Complexity Diagnoses Fall W19.XXXA AMS (altered mental status) R41.82 UTI (urinary tract infection) N39.0 Elevated troponin R77.8 Chronic combined systolic and diastolic CHF (congestive heart failure) I50.42 Permanent atrial fibrillation I48.21 Hypertension I10 Hypothyroid E03.9 PMR (polymyalgia rheumatica) M35.3 Prediabetes R73.03
[2022-07-03] MEDS ORDERED: METOPROLOL SUCC 50MG EXT REL TAB PO STA (11:41)
[2022-07-03] MEDS ORDERED: LOSARTAN POTASSIUM 50 MG TAB PO STA (11:41)
[2022-07-03] MEDS ORDERED: PHARMACIST DISCHARGE MED REC CONSULT PRN (11:43)
[2022-07-03] MEDS ORDERED: LACTATED RINGER'S 1,000 ML IV SCH (11:45)
[2022-07-03] MEDS ORDERED: METOPROLOL TARTRATE 50 MG TAB PO STA (12:19)
[2022-07-03] MEDS ORDERED: GLUCOSE 40% GEL 15 GM TUBE PO PRN (12:25)
[2022-07-03] MEDS ORDERED: DEXTROSE 50% 50 ML SYRINGE IV PRN (12:25)
[2022-07-03] MEDS ORDERED: GLUCOSE 10 TAB/TUBE PO PRN (12:25)
[2022-07-03] MEDS ORDERED: CARBOHYDRATES FOR HYPOGLYCEMIA PO PRN (12:25)
[2022-07-03] MEDS ORDERED: GLUCAGON FOR INJ 1 MG VIAL SQ PRN (12:25)
[2022-07-03] MEDS ORDERED: predniSONE 1 MG TAB PO SCH (13:08)
[2022-07-03 13:26] LABS: Troponin I High Sensitivity 29.2 pg/ml (0-14)
[2022-07-03] MEDS: INSULIN ASPART PER UNIT SC SCH ×2 (13:46→19:04)
[2022-07-03] MEDS ORDERED: predniSONE 1 MG TAB PO ONE (14:19)
[2022-07-03] MEDS: hydrALAZINE HCL 20 MG/ML VIAL IV PRN ×2 (14:49→21:59)
--- NOTE | 2022-07-03 17:01 | XCELERA ---
[id number]
[2022-07-03] MEDS ORDERED: HALOPERIDOL LACTATE 5 MG/ML 1 ML VIAL IV STA (17:20)
[2022-07-04] MEDS: INSULIN ASPART PER UNIT SC SCH ×5 (00:43→21:06)
[2022-07-04] MEDS: LEVOTHYROXINE SODIUM 150 MCG TABLET PO SCH (05:48)
[2022-07-04] MEDS: METOPROLOL SUCC 50MG EXT REL TAB PO SCH ×2 (07:17→20:51)
[2022-07-04 08:56] LABS: Hematocrit (blood only) 36.2 % (34.1-44.9); Hemoglobin 12.1 g/dl (12.0-16.0); Mean Corpuscular Hemoglobin 30.8 pg (25.0-34.0); Mean Corpuscular Hgb Conc 33.4 g/dL (32.0-36.0); Mean Corpuscular Volume 92.1 fL (80.0-100.0); Mean Platelet Volume 10.8 fL (9.4-12.3); Platelet Count 220 K/uL (130-400); RDW Coefficient of Variation 13.1 % (11.5-14.5); RDW Standard Deviation 43.9 fL (36.4-46.3); Red Blood Count 3.93 M/uL (3.93-5.22); White Blood Count 14.84 K/ul (4.8-10.8)
[2022-07-04] MEDS ORDERED: LOSARTAN POTASSIUM 50 MG TAB PO SCH (09:00)
[2022-07-04 09:07] LABS: INR 1.2 (0.9-1.1); Prothrombin Time 12.7 Seconds (9.0-12.0)
[2022-07-04] MEDS: predniSONE 1 MG TAB PO SCH (09:18)
[2022-07-04] MEDS: LOSARTAN POTASSIUM 50 MG TAB PO SCH (09:19)
[2022-07-04] MEDS: MULTIVITAMIN TAB PO SCH (09:19)
[2022-07-04] MEDS: FUROSEMIDE 20 MG TAB PO SCH (09:19)
[2022-07-04] MEDS: MAGNESIUM CHLORIDE W/CALCIUM 64MG DELAYED REL TAB PO SCH (09:19)
[2022-07-04] MEDS: POTASSIUM CHLORIDE CRTAB 20 MEQ TABCR PO SCH (09:20)
[2022-07-04 09:34] LABS: Albumin Globulin Ratio 1.2 (0.9-2); Albumin Level 3.4 gm/dl (3.4-5.0); BUN Creatinine Ratio 20.7 (10-20); Bilirubin,Total 1.7 mg/dl (0.2-1.0); Chol HDL Ratio 2.6 (0-5); Creatinine Clr Calc Pharmacy 58.3 ml/min; Est GFR (African American) 74.6 ml/min; Est GFR (Non-African American) 64.3 ml/min; Globulin 2.9 gm/dl (2.5-4.0); Potassium 4.1 mmol/L (3.5-5.1); Total Protein 6.3 gm/dl (6.0-8.3)
[2022-07-04] MEDS: SODIUM CHLORIDE 0.9% 1000ML 1,000 ML IV SCH ×2 (10:26→17:53)
--- NOTE | 2022-07-04 10:30 | CT Scan Report ---
CT head/brain wo con CLINICAL HISTORY: FU for recent fall on Xarelto Technique: Contiguous axial CT images of the head were acquired from the base of the skull to the alex praneeth without intravenous contrast administration. Images were viewed in brain, subdural and bone windo ws. Automated dose lowering techniques and/or adjustment according to patient size were utilized for this exam. Comparison: Comparison is made to CT head 06/25/2022 Findings: Areas of decreased attenuation are present in the periventricular and subcortical white matter bilate rally consistent with small vessel ischemic disease. Generalized cerebral atrophy with commensurate e nlargement of the ventricles, sulci, and cisterns is also present. There is no acute intracranial hem orrhage or evidence of acute territorial infarction. No shift of the midline structures, mass effect, or extra-axial abnormalities are shown. Atherosclerotic calcifications are present in the intracran ial segments of the internal carotid arteries. Imaged portions of the paranasal sinuses and mastoid air cells are clear. The orbits appear normal. There are no acute fractures of the calvaria. Scalp swelling is seen in the left occipital soft tiss ues. Impression: No acute intracranial hemorrhage or skull fractures. Scalp swelling is seen in the left occipital sof t tissues. ACT 112: Negative or not required by law. Electronically signed by: Nehemiah Monk M.D. 07/04/2022 10:29 AM
[2022-07-04 10:58] LABS: Estimated Average Glucose 123 mg/dl; Hemoglobin A1C 5.9 % (4.5-5.6)
[2022-07-04] MEDS: cefTRIAXone SODIUM 2,000 MG in DEXTROSE 5% 50 ML IV SCH (13:26)
[2022-07-04] MEDS ORDERED: Nursing to Pharmacy Communication SCH (15:00)
[2022-07-04] MEDS: ACETAMINOPHEN 325 MG TAB PO PRN (17:08)
[2022-07-04] MEDS: RIVAROXABAN 20 MG TAB PO SCH (17:09)
--- NOTE | 2022-07-04 17:41 | Hospitalist Progress Note ---
Date of Service July 04, 2022 Assessment & Plan (1) Fall: Plan: Mrs. Hendricks is an 87 yo F who was admitted after sustaining a fall at home. - Initial CT of the head was negative for acute changes, the rest of her trauma workup was also negative - Patient does have a large posterior scalp hematoma from her fall - Fall precautions ordered, will have the patient evaluated by PT/OT while admitted - CK not elevated - suspect due to metabolic encephalopathy, but apparently has baseline balance issues. B12 level checked and normal. Consider balance training as outpatient with physical therapy (2) AMS (altered mental status): Plan: - acute on chronic - per son, seems to be developing underlying dementia - suspect acute worsening due to UTI > stroke > hypertensive origin - Noted to be significantly hypertensive on arrival to the ED with systolics in 220's, however patient had been without home meds all day - CT of the head was negative for acute findings; unfortunately cannot have MRI due to pacemaker compatibility issues. The rest of the stroke workup was ordered on admission: A1c at 5.9. Lipids within goal. Echo without thrombus, normal EF. - Q4H neuro checks, would repeat CT head state for any new concerning findings (3) UTI (urinary tract infection): Plan: - UA concerning for infection, Urine culture growing gram - bacilli. Continue to follow. - WBC at 14. Trend CBC. - Lactate was initially elevated, has since cleared - blood cultures pending, no growth through 24 hours - Review of previous urine cultures show no resistant organisms; no risk factors for MRSA or pseudomonas. - continue ceftriaxone - If patient clinically worsens overnight (ie new fevers), repeat CBC and get new blood cultures; escalate abx to zosyn (4) Elevated troponin: Plan: -Initial trop elevated at 24 -No acute ECG changes noted -Likely due to demand (5) Chronic combined systolic and diastolic CHF (congestive heart failure): Plan: - Follows with cardiology and the heart failure team - Last TTE was in 2017 with LVEF 0f 35-40% - Some congestive findings on CXR but otherwise examines volume down - Resume daily lasix (6) Permanent atrial fibrillation: Plan: - rate controlled on metoprolol - since head CT and repeat head CT both neg for bleed, home Xarelto restarted (7) Hypertension: Plan: - BP has improved with resumption of normal home regimen (8) Hypothyroid: Plan: -Will follow TSH ordered on admission -Continue levothyroxine (9) PMR (polymyalgia rheumatica): Plan: -Continue 7 mg PO prednisone daily (10) Prediabetes: Plan: -Not currently on antihyperglycemics - A1c 5.9 - stop blood sugar checks Diet: DM II Plan The patient was discussed with Dr. Carranza at the time of the admission Admission and Anticipated Discharge Date Admission Date: July 04, 2022 Subjective Patient is drowsy - son provides useful history at bedside. He says both his parents, who currently live independently seem to be developing mild dementia. She does have balane problems at baseline, uses a cane and/or walker to get around at home. She was sent to [facility] in the past and had a poor experience, would prefer not to do rehab there. Review of Systems Review of Systems: All systems reviewed & are unremarkable except as noted in HPI & below Physical Exam Constitutional: WD/WN, vitals as above + drowsy Eyes: + anicteric sclerae ENMT: external ear and nose normal, oropharynx normal Neck: trachea midline, no thyromegaly Respiratory: normal respiratory effort, lungs clear to auscultation Cardiovascular: RRR, no murmur, no edema Musculoskeletal: Head/Neck/Chest: normocephalic and head atraumatic Skin: no rashes, warm and dry + hematoma on scalp Neurologic: moves all extremities Results & Data Results & Data ([facility]) Vital Signs (Past 12 Hours) Vital Signs Temp Pulse Pulse Resp BP Pulse Ox O2 Del Method 07/04/22 15:47 37.0 C 105 H 24 154/67 H 98 Room Air 07/04/22 15:21 62 07/04/22 14:58 Room Air 07/04/22 12:21 62 07/04/22 11:30 37.4 C 94 H 24 194/78 H 96 Room Air 07/04/22 09:14 71 19 163/62 H 95 Room Air 07/04/22 07:58 37.2 C 91 H 16 205/74 H 94 Room Air PG Care Time/CCT Total # of Minutes Spent Total Time Spent with Patient: Total time spent is greater than 50% in coordination of care (as documented) at patient's floor/unit and/or counseling patient: Coding Level of Care Code 43510 Subseq Hosp Care Lvl 3 Diagnoses Fall W19.XXXA AMS (altered mental status) R41.82 UTI (urinary tract infection) N39.0 Elevated troponin R77.8 Chronic combined systolic and diastolic CHF (congestive heart failure) I50.42 Permanent atrial fibrillation I48.21 Hypertension I10 Hypothyroid E03.9 PMR (polymyalgia rheumatica) M35.3 Prediabetes R73.03
[2022-07-05] MEDS: LEVOTHYROXINE SODIUM 150 MCG TABLET PO SCH (05:27)
[2022-07-05 08:26] LABS: Hematocrit (blood only) 35.2 % (34.1-44.9); Hemoglobin 11.9 g/dl (12.0-16.0); Mean Corpuscular Hemoglobin 30.5 pg (25.0-34.0); Mean Corpuscular Hgb Conc 33.8 g/dL (32.0-36.0); Mean Corpuscular Volume 90.3 fL (80.0-100.0); Platelet Count 203 K/uL (130-400); RDW Coefficient of Variation 13.1 % (11.5-14.5); RDW Standard Deviation 43.4 fL (36.4-46.3); White Blood Count 16.84 K/ul (4.8-10.8)
[2022-07-05 09:08] LABS: Albumin Globulin Ratio 1.2 (0.9-2); Albumin Level 3.2 gm/dl (3.4-5.0); BUN Creatinine Ratio 22.8 (10-20); Bilirubin,Total 1.2 mg/dl (0.2-1.0); Calcium 8.8 mg/dl (8.5-10.1); Creatinine Clr Calc Pharmacy 60.5 ml/min; Est GFR (Non-African American) 67.3 ml/min; Globulin 2.7 gm/dl (2.5-4.0); Potassium 3.8 mmol/L (3.5-5.1); Total Protein 5.9 gm/dl (6.0-8.3); Troponin I High Sensitivity 507.9 pg/ml (0-14)
[2022-07-05] MEDS ORDERED: POLYETHYLENE (MIRALAX) 17 GM PACK PO PRN (09:28)
--- NOTE | 2022-07-05 09:51 | Hospitalist Progress Note ---
Date of Service July 05, 2022 Assessment & Plan (1) Fall: Plan: Mrs. Hendricks is an 87 yo F who was admitted after sustaining a fall at home. - Initial CT of the head was negative for acute changes, the rest of her trauma workup was also negative - Patient does have a large posterior scalp hematoma from her fall - CK level not elevated - Fall precautions ordered, will have the patient evaluated by PT/OT while admitted - suspect due to metabolic encephalopathy, but apparently has baseline balance issues. B12 level checked and normal. Consider balance training as outpatient with physical therapy (2) AMS (altered mental status): Plan: - acute on chronic - per son, seems to be developing underlying dementia - suspect acute worsening due to UTI > stroke > hypertensive origin - Noted to be significantly hypertensive on arrival to the ED with systolics in 220's, however patient had been without home meds all day - CT of the head was negative for acute findings; unfortunately cannot have MRI due to pacemaker compatibility issues. The rest of the stroke workup was ordered on admission: A1c at 5.9. Lipids within goal. Echo without thrombus, normal EF. - Q4H neuro checks, would repeat CT head state for any new concerning findings (3) UTI (urinary tract infection): Plan: - UA concerning for infection, Urine culture growing e.coli that is [place]- sensitive - WBC at 14-->16--> 15. Trend CBC. - Lactate was initially elevated, has since cleared - blood cultures pending, no growth to date - Review of previous urine cultures show no resistant organisms; no risk factors for MRSA or pseudomonas. - continue ceftriaxone - If patient clinically worsens overnight (ie new fevers), repeat CBC and get new blood cultures; escalate abx (4) Elevated troponin: Plan: -Initial trop elevated but has since downtrended -No acute ECG changes noted -Likely due to demand (5) Chronic combined systolic and diastolic CHF (congestive heart failure): Plan: - Follows with cardiology and the heart failure team - Last TTE was in 2017 with LVEF 0f 35-40% - Some congestive findings on CXR but otherwise examines volume down - Resume daily lasix (6) Permanent atrial fibrillation: Plan: - rate controlled on metoprolol - since head CT and repeat head CT both neg for bleed, home Xarelto restarted (7) Hypertension: Plan: - BP has improved with resumption of normal home regimen (8) Hypothyroid: Plan: -Will follow TSH ordered on admission -Continue levothyroxine (9) PMR (polymyalgia rheumatica): Plan: -Continue 7 mg PO prednisone daily (10) Prediabetes: Plan: -Not currently on antihyperglycemics - A1c 5.9 - stop blood sugar checks Diet: DM II Dvt ppx: on Xarelto Code: DNR/DNI Dipso: Med/tele. PT/OT evals pending. Patient would like to avoid [facility] for rehab due to poor past experience there. Admission and Anticipated Discharge Date Admission Date: July 04, 2022 Subjective Patient more alert and conversant today - although still somewhat drowsy. She was sent to [facility] in the past and had a poor experience, would prefer not to do rehab there. Review of Systems Review of Systems: Unobtainable due to cognitive status Physical Exam Constitutional: WD/WN, vitals as above Eyes: + anicteric sclerae ENMT: external ear and nose normal, oropharynx normal Neck: trachea midline, no thyromegaly Respiratory: normal respiratory effort, lungs clear to auscultation Cardiovascular: RRR, no murmur, no edema Musculoskeletal: Head/Neck/Chest: normocephalic and head atraumatic Skin: no rashes, warm and dry Neurologic: moves all extremities Results & Data Results & Data ([facility]) Vital Signs (Past 12 Hours) Vital Signs Temp Pulse Pulse Pulse Resp BP Pulse Ox 07/05/22 08:09 38.0 C H 64 20 124/75 92 07/05/22 07:34 62 07/05/22 01:00 87 07/05/22 03:33 36.9 C 64 20 141/84 H 96 07/04/22 23:08 36.9 C 68 18 142/77 H 95 07/04/22 22:00 O2 Del Method 07/05/22 08:09 Room Air 07/05/22 07:34 07/05/22 01:00 07/05/22 03:33 Room Air 07/04/22 23:08 Room Air 07/04/22 22:00 Room Air PG Care Time/CCT Total # of Minutes Spent Total Time Spent with Patient: Total time spent is greater than 50% in coordination of care (as documented) at patient's floor/unit and/or counseling patient: Coding Level of Care Code 44369 Subseq Hosp Care Lvl 2 Diagnoses Fall W19.XXXA AMS (altered mental status) R41.82 UTI (urinary tract infection) N39.0 Elevated troponin R77.8 Chronic combined systolic and diastolic CHF (congestive heart failure) I50.42 Permanent atrial fibrillation I48.21 Hypertension I10 Hypothyroid E03.9 PMR (polymyalgia rheumatica) M35.3 Prediabetes R73.03
[2022-07-05] MEDS: INSULIN ASPART PER UNIT SC SCH ×4 (09:55→20:21)
[2022-07-05] MEDS: MULTIVITAMIN TAB PO SCH (10:10)
[2022-07-05] MEDS: predniSONE 1 MG TAB PO SCH (10:10)
[2022-07-05] MEDS: MAGNESIUM CHLORIDE W/CALCIUM 64MG DELAYED REL TAB PO SCH (10:10)
[2022-07-05] MEDS: POTASSIUM CHLORIDE CRTAB 20 MEQ TABCR PO SCH (10:10)
[2022-07-05] MEDS: FUROSEMIDE 20 MG TAB PO SCH (10:10)
[2022-07-05] MEDS: LOSARTAN POTASSIUM 50 MG TAB PO SCH (10:10)
[2022-07-05] MEDS ORDERED: SODIUM CHLORIDE 0.9% 1000ML 1,000 ML IV SCH (11:00)
[2022-07-05] MEDS: cefTRIAXone SODIUM 2,000 MG in DEXTROSE 5% 50 ML IV SCH (11:28)
--- NOTE | 2022-07-05 12:54 | Electrocardiogram Report ---
Test Reason : Blood Pressure : / mmHG Vent. Rate : 060 BPM Atrial Rate : 064 BPM P-R Int : 000 ms QRS Dur : 138 ms QT Int : 454 ms P-R-T Axes : 000 191 017 degrees QTc Int : 454 ms Ventricular-paced rhythm Biventricular pacemaker detected Abnormal ECG When compared with ECG of 03-JUL-2022 08:16, Vent. rate has decreased BY 10 BPM Confirmed by Junior Alcantara ([id number]) on 07/05/2022 12:54:22 PM Referred By: REFERRED SELF Confirmed By:Franki Alcantara
[2022-07-05 13:04] LABS: Basophils # (auto) 0.06 K/uL (0-0.2); Basophils % (auto) 0.4 %; Eosinophils # (auto) 0.15 K/uL (0-0.50); Hematocrit (blood only) 35.1 % (34.1-44.9); Hemoglobin 11.8 g/dl (12.0-16.0); Immature Granulocytes % (auto) 0.6 %; Lymphocytes # (auto) 0.34 K/uL (1.2-3.4); Lymphocytes % (auto) 2.2 %; Mean Corpuscular Hemoglobin 30.6 pg (25.0-34.0); Mean Corpuscular Hgb Conc 33.6 g/dL (32.0-36.0); Mean Corpuscular Volume 90.9 fL (80.0-100.0); Monocytes % (auto) 5.8 %; Platelet Count 205 K/uL (130-400); RDW Coefficient of Variation 13.2 % (11.5-14.5); RDW Standard Deviation 43.8 fL (36.4-46.3); Red Blood Count 3.86 M/uL (3.93-5.22); White Blood Count 15.65 K/ul (4.8-10.8)
[2022-07-05] MEDS: RIVAROXABAN 20 MG TAB PO SCH (17:19)
[2022-07-05] MEDS: METOPROLOL SUCC 50MG EXT REL TAB PO SCH (20:18)
[2022-07-06] MEDS: LEVOTHYROXINE SODIUM 150 MCG TABLET PO SCH (05:40)
[2022-07-06 06:40] LABS: Hematocrit (blood only) 35.3 % (34.1-44.9); Hemoglobin 11.9 g/dl (12.0-16.0); Mean Corpuscular Hgb Conc 33.7 g/dL (32.0-36.0); Mean Corpuscular Volume 91.9 fL (80.0-100.0); Mean Platelet Volume 11.3 fL (9.4-12.3); Platelet Count 214 K/uL (130-400); RDW Coefficient of Variation 13.3 % (11.5-14.5); RDW Standard Deviation 44.8 fL (36.4-46.3); Red Blood Count 3.84 M/uL (3.93-5.22); White Blood Count 15.31 K/ul (4.8-10.8)
[2022-07-06 07:10] LABS: Albumin Globulin Ratio 1.1 (0.9-2); Albumin Level 3.1 gm/dl (3.4-5.0); BUN Creatinine Ratio 27.9 (10-20); Calcium 8.8 mg/dl (8.5-10.1); Creatinine Clr Calc Pharmacy 55.9 ml/min; Est GFR (African American) 70.4 ml/min; Est GFR (Non-African American) 60.7 ml/min; Globulin 2.9 gm/dl (2.5-4.0)
[2022-07-06] MEDS: FUROSEMIDE 20 MG TAB PO SCH (08:07)
[2022-07-06] MEDS: MAGNESIUM CHLORIDE W/CALCIUM 64MG DELAYED REL TAB PO SCH (08:07)
[2022-07-06] MEDS: predniSONE 1 MG TAB PO SCH (08:07)
[2022-07-06] MEDS: LOSARTAN POTASSIUM 50 MG TAB PO SCH (08:07)
[2022-07-06] MEDS: MULTIVITAMIN TAB PO SCH (08:08)
[2022-07-06] MEDS: POTASSIUM CHLORIDE CRTAB 20 MEQ TABCR PO SCH (08:09)
[2022-07-06] MEDS: INSULIN ASPART PER UNIT SC SCH ×3 (08:28→17:58)
[2022-07-06] MEDS: ACETAMINOPHEN 325 MG TAB PO PRN (10:00)
--- NOTE | 2022-07-06 10:03 | Hospitalist Progress Note ---
Date of Service July 06, 2022 Assessment & Plan (1) AMS (altered mental status): Plan: 87 yo F Hx CVA, breast ca, PMR, HTN, hypothyroidism, AFib, dementia, diastolic CHF admitted for fall and head trauma with AMS. AMS: Presented with decreased orientation from baseline (AAOx1 with periods of confusion). Differential includes CVA not seen on CT, infectious, metabolic, post-concussive syndrome/hospital-related delirium in dementia patient. No meningitic signs. CT Head x2 negative for hemorrhage/CVA. 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 NPO for now with aspiration precautions, speech evaluation. CT Chest negative for PE or pneumonia. UCx pansensitive E. coli; was placed on ceftriaxone which we will continue given not clear on cause of AMS. Ammonia level normal. ABG without hypercapnea or acidosis/alkalosis. TSH normal. B12 normal. B1 pending, start thiamine for now. RPR pending. Lyme pending. Repeat CBC, CMP in AM. Consider Neurology consult if continued significant change from baseline without clear etiology. (2) Fall: Plan: With multiple falls in the 48 hours prior to admission. CT Head 07/03 and 07/04 without evidence of hemorrhage, CVA. Patient does have a large posterior scalp hematoma from her fall, as well as left neck and shoulder bruising. CK level normal. PT and OT to eval while admitted. (3) UTI (urinary tract infection): Plan: Given 1 dose of ceftriaxone in the ED, continue with ceftriaxone daily for now. (4) Elevated troponin: Plan: Troponin trend 24 -> 694 -> 134 without complaints of chest pain. No EKG changes suggestive of ACS. (5) Chronic combined systolic and diastolic CHF (congestive heart failure): Plan: Follows with cardiology and the heart failure team Last TTE was in 2017 with LVEF 0f 35-40% Some mild congestive changes on CT Chest, continue home furosemide. (6) Permanent atrial fibrillation: Plan: Currently rate controlled. Continue metoprolol (IV q6h given NPO). Continue Xarelto given no bleeding on CT Head x2. (7) Hypertension: Plan: Noted to be significantly hypertensive on arrival to the ED with systolics in 220s. BP 180s systolic today. NPO for now given not following commands. Lopressor 5mg IV q6h scheduled with hold parameters. Prn IV hydralazine 5mg q4h for systolic BP > 180. (8) Hypothyroid: Plan: TSH normal. (9) PMR (polymyalgia rheumatica): Plan: Continue 7 mg PO prednisone daily. No indication for stress dosing at this time. Could be why patient's WBC count is elevated. (10) Prediabetes: Plan: A1c 5.6%. Discontinue SSI. Plan DNR/DNI NPO for now Med/Tele status Xajuan fto for DVT ppx Admission and Anticipated Discharge Date Admission Date: July 04, 2022 Subjective After working with PT today had some increased pain "all over", became more confused and lethargic. Able to protect airway but unable to meaningfully answer questions. Winces when touched over body, abdomen, face, limbs (no increase in wince in different body zones). Spoke to son who reports that usually she is alert and oriented to self with period of confusion at home. Review of Systems Review of Systems: Unobtainable due to cognitive status Physical Exam Constitutional: WD/WN, vitals as above Respiratory: normal respiratory effort, lungs clear to auscultation Cardiovascular: HR irregularly irregular non-tachycardic Gastrointestinal (Abdomen): normal bowel sounds, soft, nontender, no hepatosplenomegaly Skin: no rashes, warm and dry Neurologic: Garbled speech, sometimes answers yes/no questions but unclear if understanding questions PERRLA (no photophobia or squinting with light exam) Good motor tone of bilateral face, upper and lower extremities No tremor Psychiatric: Orientation: alert; + not oriented x 3 Results & Data Results & Data ([facility]) Vital Signs (Past 12 Hours) Vital Signs Temp Pulse Pulse Resp BP Pulse Ox O2 Del Method 07/06/22 07:48 36.6 C 67 16 204/89 H 91 Room Air 07/06/22 06:05 60 07/06/22 03:23 36.5 C 62 22 154/93 H 94 Room Air 07/05/22 23:49 Room Air 07/05/22 22:41 36.9 C 79 20 169/99 H 93 Room Air 07/05/22 22:19 86 PG Care Time/CCT Total # of Minutes Spent Total Time Spent with Patient: Total time spent is greater than 50% in coordination of care (as documented) at patient's floor/unit and/or counseling patient: Coding Level of Care Code 28078 Subseq Hosp Care Lvl 3 Diagnoses AMS (altered mental status) R41.82 Fall W19.XXXA UTI (urinary tract infection) N39.0 Elevated troponin R77.8 Chronic combined systolic and diastolic CHF (congestive heart failure) I50.42 Permanent atrial fibrillation I48.21 Hypertension I10 Hypothyroid E03.9 PMR (polymyalgia rheumatica) M35.3 Prediabetes R73.03
[2022-07-06] MEDS ORDERED: MoRPHine SULFATE 2 MG/ML CARP IV STA (11:40)
--- NOTE | 2022-07-06 12:23 | XRay Report ---
XR chest 1V portable CLINICAL HISTORY: tachypnea COMPARISON STUDY: Chest radiograph July 03, 2022. FINDINGS: Left subclavian pacer/AICD is in place. Cardiomegaly is unchanged. No pneumothorax or pleur al effusion is identified. There is pulmonary vascular congestion with suspected mild pulmonary edema . Possible left basilar opacity. IMPRESSION: 1. Cardiomegaly. Pulmonary vascular congestion with suspected mild pulmonary edema. 2. Possible left basilar opacity. ACT 112: Negative or not required by law. Electronically signed by: Mikal Olivier M.D. 07/06/2022 12:22 PM
[2022-07-06 12:30] LABS: Base Excess ABG -3.4 mEq/L (-9-1.8); HCO3 ABG 20 mmol/L (19-24); Oxygen Saturation ABG 98.9 % (90-95); PCO2 ABG 30 mmHg (35-46); PO2 ABG 97 mmHg (80-95); pH ABG 7.43 (7.35-7.45)
[2022-07-06 12:34] LABS: Allen Test Pos (Pos)
[2022-07-06] MEDS: cefTRIAXone SODIUM 2,000 MG in DEXTROSE 5% 50 ML IV SCH (12:39)
--- NOTE | 2022-07-06 14:57 | Electrocardiogram Report ---
Test Reason : Blood Pressure : / mmHG Vent. Rate : 060 BPM Atrial Rate : 041 BPM P-R Int : 000 ms QRS Dur : 138 ms QT Int : 466 ms P-R-T Axes : 000 176 -19 degrees QTc Int : 466 ms Ventricular-paced rhythm Biventricular pacemaker detected Abnormal ECG When compared with ECG of 04-JUL-2022 19:15, No significant change was found Confirmed by Davon Duran ([id number]) on 07/06/2022 2:56:57 PM Referred By: REFERRED SELF Confirmed By:Davon Duran
[2022-07-06] MEDS ORDERED: OPTIRAY 320 500ml IV ONE (16:25)
--- NOTE | 2022-07-06 16:47 | CT Scan Report ---
CT ANGIOGRAPHY OF THE CHEST, PULMONARY EMBOLUS PROTOCOL CLINICAL HISTORY: Shortness of breath. Chest pain. Evaluate for pulmonary embolus. COMPARISON STUDY: Chest radiograph performed earlier today and chest CT October 02, 2013. TECHNIQUE: Following IV administration of 114 mL of Optiray, helical axial images of the chest were o btained utilizing the pulmonary embolus protocol. Maximal intensity projections and sagittal and cor onal reformats were viewed on an independent 3D workstation. IV contrast was administered without co mplication. Automated exposure control was utilized for the study. A dose lowering technique was ut ilized adhering to the principles of ALARA. CT DOSE: 611.42 mGy.cm FINDINGS: A left subclavian biventricular pacer/AICD is in place. No central pulmonary emboli are id entified. Evaluation of the remainder of the pulmonary arteries is nondiagnostic due to suboptimal op acification and respiratory motion artifact. Moderate cardiomegaly. No pericardial effusion is presen t. There are small bilateral pleural effusions. Associated lower lobe airspace opacities favor atelec tasis. Interlobular septal thickening represents pulmonary edema. In addition, moderate alveolar opac ities are noted. These are greater within the right lung. The findings suggest pulmonary edema which has progressed since chest radiograph performed earlier today. There is no pneumothorax. No acute fra ctures within the bony thorax. A peripherally calcified 2.5 cm left hepatic lobe lesion is similar to prior CT. This is benign. A small hiatal hernia is present. There is no thoracic lymphadenopathy. Re flux of contrast into the IVC and hepatic veins is noted. IMPRESSION: 1. No central pulmonary emboli. Nondiagnostic evaluation of the remainder of the pulmonary arteries d ue to respiratory motion and suboptimal vascular opacification. 2. Cardiomegaly. Interlobular septal thickening consistent with interstitial pulmonary edema. Moderat e alveolar opacities favor alveolar pulmonary edema which has progressed since chest radiograph perfo rmed earlier today. A superimposed infectious process could appear similar although is considered les s likely. 3. Small bilateral pleural effusions. ACT 112: Negative or not required by law. Electronically signed by: Mikal Olivier M.D. 07/06/2022 4:45 PM
[2022-07-06] MEDS: RIVAROXABAN 20 MG TAB PO SCH (18:05)
[2022-07-06] MEDS: ACETAMINOPHEN 500 MG TAB PO SCH (18:18)
[2022-07-06] MEDS ORDERED: Nursing to Pharmacy Communication SCH (18:30)
[2022-07-06] MEDS: METOPROLOL SUCC 50MG EXT REL TAB PO SCH (19:44)
[2022-07-06] MEDS: hydrALAZINE HCL 20 MG/ML VIAL IV PRN (22:12)
[2022-07-06] MEDS: METOPROLOL TARTRATE 1 MG/ML VIAL IV SCH (23:51)
[2022-07-07] MEDS: ACETAMINOPHEN 500 MG TAB PO SCH ×2 (02:11→11:12)
[2022-07-07] MEDS: hydrALAZINE HCL 20 MG/ML VIAL IV PRN (04:12)
[2022-07-07] MEDS: METOPROLOL TARTRATE 1 MG/ML VIAL IV SCH ×3 (06:35→17:59)
[2022-07-07] MEDS: LEVOTHYROXINE SODIUM 150 MCG TABLET PO SCH (06:38)
[2022-07-07 06:50] LABS: Albumin Globulin Ratio 1.1 (0.9-2); Albumin Level 3.2 gm/dl (3.4-5.0); BUN Creatinine Ratio 31.2 (10-20); Bilirubin,Total 0.9 mg/dl (0.2-1.0); Creatinine Clr Calc Pharmacy 62.5 ml/min; Est GFR (African American) 80.5 ml/min; Est GFR (Non-African American) 69.4 ml/min; Potassium 3.7 mmol/L (3.5-5.1); Total Protein 6.2 gm/dl (6.0-8.3)
[2022-07-07 06:57] LABS: Basophils # (auto) 0.05 K/uL (0-0.2); Basophils % (auto) 0.3 %; Eosinophils # (auto) 0.43 K/uL (0-0.50); Eosinophils % (auto) 2.5 %; Hematocrit (blood only) 37.1 % (34.1-44.9); Hemoglobin 12.3 g/dl (12.0-16.0); Immature Granulocytes # (auto) 0.38 K/uL (0.00-0.02); Immature Granulocytes % (auto) 2.2 %; Lymphocytes # (auto) 0.53 K/uL (1.2-3.4); Mean Corpuscular Hemoglobin 30.1 pg (25.0-34.0); Mean Corpuscular Hgb Conc 33.2 g/dL (32.0-36.0); Mean Corpuscular Volume 90.9 fL (80.0-100.0); Mean Platelet Volume 11.6 fL (9.4-12.3); Monocytes # (auto) 1.09 K/uL (0.24-0.82); Monocytes % (auto) 6.2 %; Neutrophils # (auto) 14.98 K/uL (1.4-6.5); Neutrophils % (auto) 85.8 %; Platelet Count 239 K/uL (130-400); RDW Coefficient of Variation 13.5 % (11.5-14.5); RDW Standard Deviation 45.2 fL (36.4-46.3); Red Blood Count 4.08 M/uL (3.93-5.22); White Blood Count 17.46 K/ul (4.8-10.8)
[2022-07-07] MEDS: predniSONE 1 MG TAB PO SCH (09:00)
[2022-07-07] MEDS: MULTIVITAMIN TAB PO SCH (09:00)
[2022-07-07] MEDS: FUROSEMIDE 20 MG TAB PO SCH (09:00)
[2022-07-07] MEDS: POTASSIUM CHLORIDE CRTAB 20 MEQ TABCR PO SCH (09:00)
[2022-07-07] MEDS: LOSARTAN POTASSIUM 50 MG TAB PO SCH (09:00)
[2022-07-07] MEDS: MAGNESIUM CHLORIDE W/CALCIUM 64MG DELAYED REL TAB PO SCH (09:00)
[2022-07-07] MEDS: THIAMINE HCL 100 MG in SYRINGE 9 ML IV SCH (09:15)
[2022-07-07 10:24] LABS: Lyme Ab IgG w/WB Rflx Negative (Negative); Lyme Ab IgM w/WB Rflx Negative (Negative)
--- NOTE | 2022-07-07 10:24 | Hospitalist Progress Note ---
Date of Service July 07, 2022 Assessment & Plan (1) AMS (altered mental status): Plan: 87 yo F Hx CVA, breast ca, PMR, HTN, hypothyroidism, AFib, dementia, diastolic CHF admitted for fall and head trauma with AMS. AMS: Presented with decreased orientation from baseline (AAOx1 with periods of confusion). Differential includes CVA not seen on CT, infectious, metabolic, post-concussive syndrome/hospital-related delirium in dementia patient. No meningitic signs. CT Head x2 negative for hemorrhage/CVA. 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 CT Chest negative for PE or pneumonia. UCx pansensitive E. coli; was placed on ceftriaxone which we will continue given no obvious cause of AMS at this time (completes 07/09/22). Ammonia level normal. TSH and B12 normal. ABG without hypercapnea or acidosis/alkalosis. B1 pending, start thiamine for now. RPR pending. Lyme IgG/IgM negative. Daily CBC/CMP. Most suspicious at this time of underlying dementia (AAOx1 with some confusion at home) with hospital-related delirium, possible contributory UTI. Unable to determine if had small stroke not visualized on CT scans. Consider Neurology consult if continued significant change from baseline without clear etiology; did have some mild improvement today. NPO for now with aspiration precautions, oral pocketing today and old food removed with suction. (2) Fall: Plan: With multiple falls in the 48 hours prior to admission. CT Head 07/03 and 07/04 without evidence of hemorrhage, CVA. Patient does have a large posterior scalp hematoma from her fall, as well as left neck and shoulder bruising. CK level normal. PT and OT to continue to eval while admitted as able. (3) UTI (urinary tract infection): Plan: Given 1 dose of ceftriaxone in the ED, continue with ceftriaxone daily for now. (4) Elevated troponin: Plan: Troponin trend 24 -> 694 -> 134 without complaints of chest pain. No EKG changes suggestive of ACS. (5) Chronic combined systolic and diastolic CHF (congestive heart failure): Plan: Follows with cardiology and the heart failure team . Last TTE was in 2017 with LVEF 0f 35-40%. Some mild congestive changes on CT Chest, continue home furosemide. (6) Permanent atrial fibrillation: Plan: Currently rate controlled. Continue metoprolol (IV q6h given NPO). Consider heparin gtt as not tolerating PO. (7) Hypertension: Plan: Noted to be significantly hypertensive on arrival to the ED with systolics in 220s. BP 170s systolic today. NPO for now given not following commands. Lopressor 5mg IV q6h scheduled with hold parameters. PRN IV hydralazine 5mg q4h for systolic BP > 180. (8) Hypothyroid: Plan: TSH normal. (9) PMR (polymyalgia rheumatica): Plan: Hold home prednisone in favor of methylprednisolone 4mg IV daily until no longer NPO. No indication for stress dosing at this time. Could be why patient's WBC count is elevated. (10) Prediabetes: Plan: A1c 5.6%. Discontinued SSI. Monitor BSG given on steroids. Plan DNR/DNI NPO for now Med/Tele status Lovenox for DVT ppx Admission and Anticipated Discharge Date Admission Date: July 04, 2022 Subjective No acute events overnight. This morning more conversational and able to answer questions more appropriately, however with immense confusion at times requiring frequent redirection. Denies chest pain, SOB, nausea, abdominal pain. No nursing staff reports of diarrhea. Has been trying to remove medical equipment in afternoon today. Review of Systems Review of Systems: All systems reviewed & are unremarkable except as noted in Subjective Physical Exam Constitutional: WD/WN, vitals as above Respiratory: normal respiratory effort, lungs clear to auscultation Cardiovascular: HR irregularly irregular non-tachycardic Gastrointestinal (Abdomen): normal bowel sounds, soft, nontender, no hepatosplenomegaly Skin: no rashes, warm and dry Neurologic: able to squeeze my fingers with both hands and wiggle both sets of toes without asymmetry does not always follow commands no facial droop speech more clear today Psychiatric: Orientation: alert and oriented to person; + not oriented to place and + not oriented to time Results & Data Results & Data ([facility]) Vital Signs (Past 12 Hours) Vital Signs Temp Pulse Pulse Resp BP BP Pulse Ox 07/07/22 07:43 36.4 C L 68 18 165/76 H 94 07/07/22 06:35 63 173/79 H 07/07/22 04:07 36.8 C 74 25 H 190/84 H 93 07/07/22 01:00 66 26 H 165/90 H 95 07/06/22 23:51 70 174/105 H 07/06/22 23:00 36.7 C 94 H 23 174/65 H 96 07/06/22 23:00 61 07/06/22 22:33 O2 Del Method 07/07/22 07:43 Room Air 07/07/22 06:35 07/07/22 04:07 Room Air 07/07/22 01:00 Room Air 07/06/22 23:51 07/06/22 23:00 Room Air 07/06/22 23:00 07/06/22 22:33 Room Air PG Care Time/CCT Total # of Minutes Spent Total Time Spent with Patient: Total time spent with this patient's care, on this day of evaluation, including chart review, documentation, orders and communicating plan with care team/patient/family: 60 minutes Coding Level of Care Code 32184 Subseq Hosp Care Lvl 3 Diagnoses AMS (altered mental status) R41.82 Fall W19.XXXA UTI (urinary tract infection) N39.0 Elevated troponin R77.8 Chronic combined systolic and diastolic CHF (congestive heart failure) I50.42 Permanent atrial fibrillation I48.21 Hypertension I10 Hypothyroid E03.9 PMR (polymyalgia rheumatica) M35.3 Prediabetes R73.03
[2022-07-07] MEDS: cefTRIAXone SODIUM 2,000 MG in DEXTROSE 5% 50 ML IV SCH (11:35)
[2022-07-07] MEDS ORDERED: ENOXAPARIN INJ 40 MG/0.4 ML SYR SQ ONE (13:00)
[2022-07-08] MEDS: METOPROLOL TARTRATE 1 MG/ML VIAL IV SCH ×5 (00:33→23:31)
[2022-07-08] MEDS: hydrALAZINE HCL 20 MG/ML VIAL IV PRN ×3 (01:16→20:12)
[2022-07-08] MEDS ORDERED: LORazepam 2 MG/1 ML VIAL IV STA (02:19)
[2022-07-08] MEDS ORDERED: ENOXAPARIN INJ 40 MG/0.4 ML SYR SQ SCH (09:00)
[2022-07-08] MEDS: METHYLPREDNISOLONE IV SCH (09:40)
[2022-07-08] MEDS: THIAMINE HCL 100 MG in SYRINGE 9 ML IV SCH (09:40)
[2022-07-08] MEDS: predniSONE 1 MG TAB PO SCH (09:40)
[2022-07-08 09:41] LABS: Basophils # (auto) 0.05 K/uL (0-0.2); Basophils % (auto) 0.3 %; Eosinophils # (auto) 0.37 K/uL (0-0.50); Hematocrit (blood only) 37.6 % (34.1-44.9); Hemoglobin 12.4 g/dl (12.0-16.0); Immature Granulocytes # (auto) 0.14 K/uL (0.00-0.02); Immature Granulocytes % (auto) 0.8 %; Lymphocytes # (auto) 0.65 K/uL (1.2-3.4); Lymphocytes % (auto) 3.5 %; Mean Corpuscular Hemoglobin 30.6 pg (25.0-34.0); Mean Corpuscular Volume 92.8 fL (80.0-100.0); Monocytes # (auto) 1.08 K/uL (0.24-0.82); Monocytes % (auto) 5.9 %; Neutrophils # (auto) 16.17 K/uL (1.4-6.5); Neutrophils % (auto) 87.5 %; Platelet Count 263 K/uL (130-400); RDW Coefficient of Variation 13.7 % (11.5-14.5); RDW Standard Deviation 46.6 fL (36.4-46.3); Red Blood Count 4.05 M/uL (3.93-5.22); White Blood Count 18.46 K/ul (4.8-10.8)
[2022-07-08 10:04] LABS: BUN Creatinine Ratio 29.6 (10-20); Calcium 9.7 mg/dl (8.5-10.1); Creatinine Clr Calc Pharmacy 59.2 ml/min; Est GFR (African American) 75.7 ml/min; Est GFR (Non-African American) 65.3 ml/min; Potassium 4.1 mmol/L (3.5-5.1)
[2022-07-08] MEDS ORDERED: OPTIRAY 320 500ml IV ONE (10:24)
--- NOTE | 2022-07-08 10:53 | CT Scan Report ---
CT angio neck with con, CT angio head wo/w CLINICAL HISTORY: eval for CVA TECHNIQUE: Contiguous axial CT images of the head were acquired from the base of the skull to the alex praneeth without intravenous contrast administration. CT angiography of the head and neck was performed f ollowing intravenous administration of iodinated contrast. Coronal and sagittal MIPS were obtained fr om the axial data set and were submitted for review. Automated dose lowering techniques and/or adjus tment according to patient size were utilized for this examination. All measurements were calculated based on NASCET criteria. CT DOSE: 1722.41 mGy.cm Comparison: Comparison is made to CT head 07/04/2022 FINDINGS: CT head: Areas of decreased attenuation are present in the periventricular and subcortical white owen er bilaterally consistent with small vessel ischemic disease. Generalized cerebral atrophy with comme nsurate enlargement of the ventricles, sulci, and cisterns is also present. There is no acute intracr anial hemorrhage or evidence of acute territorial infarction. No shift of the midline structures, mas s effect, or extra-axial abnormalities are shown. Atherosclerotic calcifications are present in the intracranial segments of the internal carotid arteries. Scalp swelling is in the left occipital soft tissues, unchanged from prior. Airspace opacities are seen in the right upper lobe where visualized. The thyroid gland is not well s een. There is a 4 mm nodule in the right the area of the thyroid bed. CTA Neck: The aortic arch and the origins of the innominate, left subclavian, and left common caroti d artery are not imaged There is no significant atherosclerotic plaque in the aortic arch or the orig ins of the innominate, left common carotid, and left subclavian arteries. There is mild calcified a therosclerotic plaque at the bifurcation of the bilateral common carotid arteries without hemodynamic ally significant flow stenosis. There is no dissection present. The left vertebral artery is dominant . CTA Head: The anterior and posterior cerebral circulations are patent. Atherosclerotic disease is no diandra. This is most prominent in the bilateral carotid siphons. IMPRESSION: 1. No acute intracranial hemorrhage, evidence of acute territorial infarction, or other acute intrac ranial disease process. Soft tissue swelling in the left occipital region is unchanged. 2. No occlusion, hemodynamically significant stenosis, or dissection in the major cervical arteries. 3. Atherosclerotic disease without occlusion, hemodynamically significant stenosis, aneurysm, dissec tion, or arteriovenous malformation in the major intracranial arteries. Assessment of stenosis of the internal carotid arteries is based on NASCET criteria. ACT 112: Negative or not required by law. Electronically signed by: Nehemiah Monk M.D. 07/08/2022 10:50 AM
[2022-07-08] MEDS: cefTRIAXone SODIUM 2,000 MG in DEXTROSE 5% 50 ML IV SCH (12:25)
--- NOTE | 2022-07-08 13:36 | Hospitalist Progress Note ---
Date of Service July 08, 2022 Assessment & Plan (1) AMS (altered mental status): Plan: 87 yo F Hx CVA, breast ca, PMR, HTN, hypothyroidism, AFib, dementia, diastolic CHF admitted for fall and head trauma with AMS. AMS: Presented with decreased orientation from baseline (AAOx1 with periods of confusion). Differential includes CVA not seen on CT, infectious, metabolic, post-concussive syndrome/hospital-related delirium in dementia patient. No meningitic signs. CT Head x2 negative for hemorrhage/CVA. CTA Head/Neck no acute findings. chronic small vessel ischemic changes and generalized cerebral atrophy noted, as well as left occipital hematoma unchanged from visualization on CT 07/06. 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 CT Chest negative for PE or pneumonia. UCx pansensitive E. coli; was placed on ceftriaxone which we will continue given no obvious cause of AMS at this time (completes 07/09/22). Ammonia level normal. TSH and B12 normal. ABG without hypercapnea or acidosis/alkalosis. B1 pending, start thiamine for now. RPR pending. Lyme IgG/IgM negative. Daily CBC/CMP. Most suspicious at this time of underlying dementia (AAOx1 with some confusion at home) with hospital-related delirium, possible contributory UTI, possible post-concussive syndrome in dementia patient. NPO for now with aspiration precautions, oral pocketing today and old food removed with suction. Have asked Neurology to evaluate patient given no improvement with Abx, nor with time (would expect improvement if infectious/due to head trauma). Delirium precautions such as honoring normal sleep/wake cycles, frequent reorientation. Avoid medications for agitation if at all possible however prefer Haldol in possible hospital-related delirium over benzodiazepine as first line choice. (2) Fall: Plan: With multiple falls in the 48 hours prior to admission. CT Head 07/03 and 07/04 without evidence of hemorrhage, CVA. CTA Head/Neck without hemorrhage or CVA. Patient does have a large posterior scalp hematoma from her fall, as well as left neck and shoulder bruising. Unchanged from yesterday. CK level normal. PT and OT to continue to eval while admitted as able. Currently very lethargic and tired following Ativan overnight. Avoid if possible unless danger to self or others in favor of 1:1 if necessary. (3) UTI (urinary tract infection): Plan: Given 1 dose of ceftriaxone in the ED, continue with ceftriaxone daily for now through 07/09/22. (4) Elevated troponin: Plan: Troponin trend 24 -> 694 -> 134 without complaints of chest pain. No EKG changes suggestive of ACS. (5) Chronic combined systolic and diastolic CHF (congestive heart failure): Plan: Follows with cardiology and the heart failure team. Last TTE was in 2017 with LVEF 0f 35-40%. Some mild congestive changes on CT Chest, continue home furosemide. (6) Permanent atrial fibrillation: Plan: Currently rate controlled. Continue metoprolol (IV q6h given NPO). Initiate heparin gtt as not tolerating PO still for CVA risk prevention. Will require PTT monitoring for therapeutic dose. ChadsVasc score >5. (7) Hypertension: Plan: Noted to be significantly hypertensive on arrival to the ED with systolics in 220s. BP 150-160s systolic today. NPO for now given not following commands. Lopressor 5mg IV q6h scheduled with hold parameters. PRN IV hydralazine 5mg q4h for systolic BP > 180. (8) Hypothyroid: Plan: TSH normal. 4mm thyroid nodule noted incidentally on imaging this admission. Follow up outpatient with thyroid US. (9) PMR (polymyalgia rheumatica): Plan: Continue to hold home prednisone in favor of methylprednisolone 4mg IV daily until no longer NPO. No indication for stress dosing at this time. Likely why patient's WBC count is elevated. (10) Prediabetes: Plan: A1c 5.6%. Discontinued SSI. Monitor BSG q6h given on steroids. Plan DNR/DNI NPO for now Med/Tele status Heparin gtt will cover DVT ppx and replace Xarelto for now for AFib Admission and Anticipated Discharge Date Admission Date: July 04, 2022 Subjective Overnight was flailing and trying to remove IVs, get out of bed, given Ativan and has been very sleepy since that time. Arouses to voice but then will fall back asleep. Review of Systems Review of Systems: Unobtainable due to cognitive status Physical Exam Constitutional: WD/WN, vitals as above Respiratory: normal respiratory effort, lungs clear to auscultation Gastrointestinal (Abdomen): normal bowel sounds, soft, nontender, no hepatosplenomegaly Skin: no rashes, warm and dry Psychiatric: Orientation: + not alert (arouses to voice/name, then falls back asleep) Results & Data Results & Data ([facility]) Vital Signs (Past 12 Hours) Vital Signs Temp Pulse Pulse Resp BP BP BP 07/08/22 13:00 07/08/22 12:24 70 145/87 H 07/08/22 12:24 36.5 C 63 16 158/74 H 07/08/22 08:00 70 07/08/22 07:15 36.4 C L 78 20 145/87 H 07/08/22 06:06 90 148/63 H 07/08/22 02:35 104 H 22 183/113 H 07/08/22 01:50 84 20 186/73 H Pulse Ox Pulse Ox O2 Del Method O2 Del Method O2 Flow Rate O2 Flow Rate 07/08/22 13:00 95 Nasal Cannula 2 07/08/22 12:24 07/08/22 12:24 99 Room Air 07/08/22 08:00 07/08/22 07:15 95 Nasal Cannula 2 07/08/22 06:06 07/08/22 02:35 92 Room Air 07/08/22 01:50 96 Room Air Coding Level of Care Code 06313 Subseq Hosp Care Lvl 3 Diagnoses AMS (altered mental status) R41.82 Fall W19.XXXA UTI (urinary tract infection) N39.0 Elevated troponin R77.8 Chronic combined systolic and diastolic CHF (congestive heart failure) I50.42 Permanent atrial fibrillation I48.21 Hypertension I10 Hypothyroid E03.9 PMR (polymyalgia rheumatica) M35.3 Prediabetes R73.03
[2022-07-08] MEDS ORDERED: MELATONIN 3 MG TAB PO PRN (22:35)
[2022-07-08] MEDS ORDERED: Heparin IV Adult Wt-Based Standard *NO* Bolus Protocol IV ONE (22:44)
[2022-07-08] MEDS: HEPARIN SODIUM/DEXTROSE 25,000 UNITS/500 ML BAG IV SCH (23:35)
[2022-07-09] MEDS ORDERED: ACETAMINOPHEN 1,000 MG/100 ML VIAL IV STA (04:17)
[2022-07-09] MEDS: hydrALAZINE HCL 20 MG/ML VIAL IV PRN (04:33)
[2022-07-09 06:01] LABS: Hematocrit (blood only) 38.3 % (34.1-44.9); Hemoglobin 12.6 g/dl (12.0-16.0); Mean Corpuscular Hemoglobin 30.7 pg (25.0-34.0); Mean Corpuscular Hgb Conc 32.9 g/dL (32.0-36.0); Mean Corpuscular Volume 93.2 fL (80.0-100.0); Mean Platelet Volume 11.4 fL (9.4-12.3); Platelet Count 268 K/uL (130-400); RDW Coefficient of Variation 13.7 % (11.5-14.5); RDW Standard Deviation 46.5 fL (36.4-46.3); Red Blood Count 4.11 M/uL (3.93-5.22); White Blood Count 22.05 K/ul (4.8-10.8)
[2022-07-09 06:21] LABS: BUN Creatinine Ratio 32.1 (10-20); Calcium 9.6 mg/dl (8.5-10.1); Creatinine Clr Calc Pharmacy 60.4 ml/min; Est GFR (African American) 79.2 ml/min; Est GFR (Non-African American) 68.4 ml/min; Potassium 3.6 mmol/L (3.5-5.1)
[2022-07-09] MEDS: METOPROLOL TARTRATE 1 MG/ML VIAL IV SCH ×4 (06:24→23:34)
[2022-07-09 06:40] LABS: Partial Thromboplastin Ratio 2.3
[2022-07-09 06:59] LABS: Partial Thromboplastin Time 62.9 Seconds (21.0-31.0)
--- NOTE | 2022-07-09 08:36 | Hospitalist Progress Note ---
Date of Service July 09, 2022 Assessment & Plan (1) AMS (altered mental status): Plan: 87 yo F Hx CVA, breast ca, PMR, HTN, hypothyroidism, AFib, dementia, diastolic CHF admitted for fall and head trauma with AMS. AMS: Presented with decreased orientation from baseline (AAOx1 with periods of confusion). Differential includes CVA not seen on CT, infectious, metabolic, post-concussive syndrome/hospital-related delirium in dementia patient. No meningitic signs. CT Head x2 negative for hemorrhage/CVA. CTA Head/Neck no acute findings. chronic small vessel ischemic changes and generalized cerebral atrophy noted, as well as left occipital hematoma unchanged from visualization on CT 07/06. 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 CT Chest negative for PE or pneumonia. UCx pansensitive E. coli; was placed on ceftriaxone which completed 07/09. Ammonia level normal. TSH and B12 normal. ABG without hypercapnea or acidosis/alkalosis. B1 pending, start thiamine for now. RPR pending. Lyme IgG/IgM negative. NPO for now with aspiration precautions, speech eval ordered. Delirium precautions such as honoring normal sleep/wake cycles, frequent reorientation. Avoid medications for agitation if at all possible however prefer Haldol in possible hospital-related delirium over benzodiazepine as first line choice. Neurology consulted and appreciate recommendations: suspect an underlying dementia with acute encephalopathy from UTI and closed head trauma, anticipate improvement with time. PT recommends SNF on discharge for continued strengthening. SENIOR ADMINISTRATIVE SUPPORT Cathy Murcia evaluated patient and appreciate recommendations: pureed diet with supervised feeds, continued SENIOR ADMINISTRATIVE SUPPORT on discharge to SNF. (2) Fall: Plan: With multiple falls in the 48 hours prior to admission. CT Head 07/03 and 07/04 without evidence of hemorrhage, CVA. CTA Head/Neck without hemorrhage or CVA. Patient does have a bruising and hematoma on posterior scalp, no worsening. CK level normal. PT and OT to continue to eval while admitted as able. Recommending SNF at this time. (3) UTI (urinary tract infection): Plan: UCx with >100k CFU pansensitive E. coli. Given 1 dose of ceftriaxone in the ED, will complete 5 day course of Rocephin today 07/09/22. (4) Elevated troponin: Plan: Troponin trend 24 -> 694 -> 134 without complaints of chest pain. No EKG changes suggestive of ACS. (5) Chronic combined systolic and diastolic CHF (congestive heart failure): Plan: Follows with cardiology and the heart failure team. Last Echo 07/03/2022 with normal LVEF, and grade II diastolic dysfunction. Some mild congestive changes on CT Chest on admission, but now appear clinically dry (elevated BUN/Cr ratio, mild hypernatremia), so will hold home furosemide and give small fluid bolus otherwise encourage PO fluid intake. (6) Permanent atrial fibrillation: Plan: Currently rate controlled. Continue metoprolol (IV q6h). Continue heparin gtt and transition to Xarelto tomorrow. ChadsVasc score >5. (7) Hypertension: Plan: Noted to be significantly hypertensive on arrival to the ED with systolics in 220s. BP 140s systolic today. Lopressor 5mg IV q6h scheduled with hold parameters. PRN IV hydralazine 5mg q4h for systolic BP > 180. (8) Hypothyroid: Plan: TSH normal. 4mm thyroid nodule noted incidentally on imaging this admission. Follow up outpatient with thyroid US. (9) PMR (polymyalgia rheumatica): Plan: Continue to hold home prednisone in favor of methylprednisolone 4mg IV daily while NPO, transition to home dosing tomorrow AM. No indication for stress dosing at this time. Likely why patient's WBC count is elevated. (10) Prediabetes: Plan: A1c 5.6%. Discontinued SSI. Monitor BSG q6h given on steroids, BSG 110-160s. Plan DNR/DNI Med/Tele status Heparin gtt will cover DVT ppx and replace Xarelto for now for AFib Admission and Anticipated Discharge Date Admission Date: July 04, 2022 Subjective Overnight no acute events, did not receive medications for agitation overnight. For nursing staff more alert, oriented x1 (name), no verbalized complaints. Does report some people in the room with her, and also thought she saw a dog. Opened the window and she was excited to look outside. I asked her if she wanted to watch tv, and she said yes. She denies complaints of chest pain, abdominal pain, SOB. No headache. Review of Systems Review of Systems: All systems reviewed & are unremarkable except as noted in Subjective Physical Exam Constitutional: WD/WN, vitals as above Respiratory: normal respiratory effort, lungs clear to auscultation Gastrointestinal (Abdomen): normal bowel sounds, soft, nontender, no hepatosplenomegaly Skin: no rashes, warm and dry Psychiatric: Orientation: oriented to person can answer simple questions, identify objects, tell me her name and that she is at "the doctor's" Results & Data Results & Data ([facility]) Vital Signs (Past 12 Hours) Vital Signs Temp Pulse Pulse Pulse Resp BP BP 07/09/22 08:00 36.9 C 60 22 147/85 H 07/09/22 06:24 67 171/89 H 07/09/22 05:55 60 07/09/22 05:10 62 07/09/22 04:27 37.5 C 07/09/22 03:43 38.5 C H 60 22 188/70 H 07/09/22 00:32 81 07/08/22 23:25 36.8 C 75 22 07/08/22 23:31 75 198/70 H 07/08/22 21:39 BP Pulse Ox O2 Del Method O2 Flow Rate 07/09/22 08:00 95 Room Air 07/09/22 06:24 07/09/22 05:55 154/82 H 07/09/22 05:10 178/77 H 07/09/22 04:27 194/76 H 07/09/22 03:43 95 Room Air 07/09/22 00:32 07/08/22 23:25 198/70 H 95 Room Air 07/08/22 23:31 07/08/22 21:39 Nasal Cannula 2 PG Care Time/CCT Total # of Minutes Spent Total Time Spent with Patient: Total time spent in patient care including chart review, patient evaluation, orders/documentation, discussion of care plan with patient/family/consulting providers/Case Management: 50 minutes Coding Level of Care Code 47007 SUB INP/OBS CARE 3/50MIN Diagnoses AMS (altered mental status) R41.82 Fall W19.XXXA UTI (urinary tract infection) N39.0 Elevated troponin R77.8 Chronic combined systolic and diastolic CHF (congestive heart failure) I50.42 Permanent atrial fibrillation I48.21 Hypertension I10 Hypothyroid E03.9 PMR (polymyalgia rheumatica) M35.3 Prediabetes R73.03
[2022-07-09] MEDS ORDERED: SODIUM CHLORIDE 0.9% 1000ML 500 ML IV ONE (08:41)
[2022-07-09] MEDS: THIAMINE HCL 100 MG in SYRINGE 9 ML IV SCH (09:29)
[2022-07-09] MEDS: METHYLPREDNISOLONE IV SCH (09:57)
--- NOTE | 2022-07-09 11:20 | Neurology Consultation ---
Date of Consultation July 09, 2022 Assessment & Plan (1) Acute confusion: (2) Generalized weakness: (3) Closed head injury: (4) Hypertensive urgency: (5) Acute UTI (urinary tract infection): Plan This patient had the onset of acute confusion and falling several days prior to admission last week. She had hit her head without clear evidence of loss of consciousness. However, the patient could certainly have had a concussion which would increase confusion and emotional lability, on otherwise elderly patient with medical problems. Certainly, her urinary tract infection could create confusion and this is being treated appropriately. Normally, I would have expected her mental status to clear little quicker but if taken in conjunction with the closed head trauma it may take several more days to improve. Left upper extremity has some weakness which I am uncertain if it is old or new. CT scan showed no obvious stroke. An MRI cannot be obtained. Nevertheless, I cannot entirely exclude a new stroke. Overall, I suspect an underlying dementia with acute encephalopathy from UTI and closed head trauma. She is already making some improvements and I suspect she will improve further each day. Recommendations: 1. Unfortunately, we cannot obtain an MRI of the brain in lieu of her pacemaker. 2. Increase activity as able and consider speech, occupational, and physical therapy consult. 3. there is no specific treatment for concussion and time will heal this. 4. I see no need for additional studies from a neurologic standpoint at this time. Overall, I spent a total of 60 minutes with this case including review of records, review of CT films, direct evaluation of patient bedside, and discussion of the case with the patient and RN at bedside, and Dr. Mays including differential diagnosis and treatment options. History of Present Illness Reason for Consultation: Patient is an 87-year-old, who I was asked to see at the request of Dr. Mays, for neurologic consultation regarding altered mental status and other issues. Requesting Physician: Dr. Mays Attending Physician: Neha Castellanos, DO History of Present Illness this patient has a history of dementia, hypertension, combined systolic and diastolic congestive heart failure, permanent atrial fibrillation (status post genet ablation in 2017), polymyalgia rheumatica, and breast cancer in the past. she has a by ventricular AICD Apparently the patient has been falling over the last 48 hours prior to admission. She did manage to hit her head and was confused as well. She came to the emergency room at 08:20 on July 03 and was afebrile blood pressure was elevated to 19/86 and her O2 saturation was normal. She was noted to be confused but had no focal abnormalities. Family is unsure if she had any loss of consciousness with the head trauma. CT scan of the head and CT scan of the cervical spine showed no acute changes or traumatic issues. She did have some left occipital contusion. I reviewed the CT scan of the head and it shows some small-vessel ischemic disease and some generalized cerebral atrophy. CBC and Chem profile were largely unremarkable although the white count was elevated with increased neutrophils. Today the white count was 22. Echocardiogram showed mild LVH and some valvular issues. A repeat CT scan of the head showed changes. We are unable to obtain an MRI of the brain because of pacemaker. CT angiography of the head and neck were unremarkable with no vascular anomalies or stenoses. CTA of the chest showed no vascular issues/PE but she did have cardiomegaly Nursing reports that the patient has had significant emotional lability over the last 2 days but is improved this morning. Her confusion and responsiveness is improved this morning compared to other days as well. She has been on ceftri axone and methylprednisolone. Allergies Allergy/AdvReac Type Severity Reaction Status Date / Time No Known Drug Allergies Allergy Verified 02/25/22 10:53 Home Medications Medication Instructions Recorded Confirmed Type magnesium chloride 64 mg 64 mg PO DAILY 05/11/18 07/03/22 History (magnesium chloride) tablet,delayed release metoprolol succinate 200 mg 200 mg PO QPM 05/11/18 07/03/22 History tablet,extended release 24 hr multivitamin 1 tab PO DAILY 05/11/18 07/03/22 History levothyroxine 150 mcg tablet 150 mcg PO DAILY #90 tabs 02/26/19 07/03/22 Rx prednisone 5 mg tablet 7 mg PO DAILY 02/21/20 07/03/22 History losartan 50 mg tablet 50 mg PO DAILY #90 tabs 04/23/21 07/03/22 Rx rivaroxaban 20 mg tablet (Xarelto) 20 mg PO DAILY #90 tabs 10/01/21 07/03/22 Rx furosemide 40 mg tablet 60 mg PO DAILY edema #135 tabs 03/04/22 07/03/22 Rx potassium chloride 20 mEq 20 meq PO DAILY #90 tabs 03/04/22 07/03/22 Rx tablet,extended release Patient History Medical History Acute kidney failure (05/2019) Acute metabolic encephalopathy Altered mental status Ankle swelling Gustafson cyst Benign paroxysmal positional vertigo Breast cancer s/p left lumpectomy Cardiomyopathy Resolved. EF=55% 2016 Epigastric abdominal pain Fall Hypertension Hypomagnesemia Hypothyroid Incarcerated inguinal hernia Incarcerated right inguinal hernia Intractable nausea and vomiting LBBB (left bundle branch block) Left knee pain Leg swelling Normal coronary arteries (2000) Plantar fasciitis Right knee pain Small bowel obstruction UTI (urinary tract infection) UTI (urinary tract infection) Vitamin D deficiency Surgical History History of oophorectomy, unilateral History of radiofrequency ablation (RFA) procedure for cardiac arrhythmia S/P cataract extraction S/P cholecystectomy S/P lumpectomy of breast S/P ROMELIA (total abdominal hysterectomy) S/P thyroidectomy Family History Sister Polio Other Heart disease Social History Smoking Status: Never smoker Hx Alcohol Use: No Hx Substance Use: No Preferred Language: Greek Communication Ability: Effective Communication Ability Comment: Patient currently aphasic Restaurant And Bar Manager Required: No Beliefs That Will Affect Care: None marital status: Current Living Situation: Family Current Living Situation Comment: Home w/ family How many Children do You have: 3 Other Information That Helps Us Care for You: No Feels Safe at Home: Yes Safety Concerns: Feels Safe At This Time Assistive Devices: Cane Review of Systems Constitutional: + fatigue and + weakness; no fever Eyes: no diplopia, no eye pain and no worsening vision Ear, Nose, Mouth, Throat: no ear pain, no tinnitus, no hearing loss, no dizziness, no snoring, no hoarseness and no dysphagia Respiratory: no cough and no dyspnea Cardiovascular: no chest pain, no palpitations and no lightheadedness Gastrointestinal: no abdominal pain, no nausea and no vomiting Genitourinary: no dysuria, no urinary frequency and no urinary incontinence Musculoskeletal: no back pain, no neck pain, no radicular pain, no joint pain and no myalgia Integumentary: no rash and no lesions Neurologic: no gait abnormality, no localized weakness, no generalized weakness, no tingling, no numbness, no tremor(s), no abnormal movements, no headache(s), no abnormal speech, no confusion and no memory loss Psychiatric: no depression, no irritability, no anxiety, no difficulty concentrating, no confusion and no hallucinations Endocrine: no fatigue and no flushing Hematologic / Lymphatic: no easy bleeding and no easy bruising Allergy / Immunological: no urticaria and no problem reported Exam (Neuro) Physical Exam: The patient is right-handed. The patient is awake, alert, and attentive. Speech is remarkable for some dysarthria but no overt aphasia. She will follow one-step commands very well and is very pleasant and cooperative. At times she will break down into tears out of the blue, showing a significant emotional lability. She can name objects and is oriented to name, age, and the month. She did not know where she was and did not know what holidays we just had. Pupils are 3 mm bilaterally and reactive to light. Extraocular eye muscles are intact without nystagmus. Visual acuity and visual wright seem normal grossly to confrontation. There are no deficits to sensation in the face in all 3 distributions of the fifth cranial nerve bilaterally. Corneal reflexes are positive bilaterally. Facial strength and symmetry was normal bilaterally. Hearing seems normal bilaterally. Palate moves well without asymmetry. There is normal sternocleidomastoid and trapezius (shoulder shrug) strength bilaterally. Tongue is midline with good strength bilaterally. Neck has a full range of motion without discomfort. There are no cervical bruits bilaterally. There are no cranial or ocular bruits. Cervical spine is nontender to palpation. Gait Is not testable and stance sitting up in bed is poor on her own. With outstretched arms there is no drift. There are no resting tremors. The patient has mild action tremor bilaterally. There is no ataxia with finger to nose testing. There is good facility in the right hand. left hand has some decreased facility. No other abnormal involuntary movements are noted. Motor strength is 5/5 diffusely in the right upper extremity including deltoids, biceps, triceps, brachioradialis, wrist flexors and extensors, tool clerk, and intrinsic hand muscles. The left upper extremity is 4+/ 5 diffusely. Motor strength is 4/5 diffusely in the legs bilaterally including hip flexors, quadriceps, hamstrings, gastrocnemius, tibialis anterior, tibialis posterior, and Peroneii muscles. Toe extensors are normal and there is good bulk in the extensor digitorum brevis muscles bilaterally. The limbs have good tone without rigidity or spasticity. There is no atrophy noted in the muscles. Muscle bulk is normal, there is no tenderness to palpation, no myotonia to percussion, and no fasciculations seen. Sensory examination is intact to touch and pin throughout all 4 limbs diffusely Reflexes are 1/4 in the biceps, triceps, brachioradialis, and quadriceps tendons bilaterally. Achilles tendon reflexes are absent bilaterally. There is no clonus bilaterally. Toes are downgoing with plantar stimulation bilaterally. Peripheral pulses are present and of normal quality distally in all 4 limbs. There is no peripheral edema noted in the limbs. Results & Data ([facility]) Vital Signs (Past 12 Hours) Vital Signs Temp Pulse Pulse Pulse Resp BP BP 07/09/22 08:00 36.9 C 60 22 147/85 H 07/09/22 06:24 67 171/89 H 07/09/22 05:55 60 07/09/22 05:10 62 07/09/22 04:27 37.5 C 07/09/22 03:43 38.5 C H 60 22 188/70 H 07/09/22 00:32 81 07/08/22 23:25 36.8 C 75 22 07/08/22 23:31 75 198/70 H BP Pulse Ox O2 Del Method 07/09/22 08:00 95 Room Air 07/09/22 06:24 07/09/22 05:55 154/82 H 07/09/22 05:10 178/77 H 07/09/22 04:27 194/76 H 07/09/22 03:43 95 Room Air 07/09/22 00:32 07/08/22 23:25 198/70 H 95 Room Air 07/08/22 23:31 PG Care Time/CCT Total # of Minutes Spent Total Time Spent with Patient: Total time spent is greater than 50% in coordination of care (as documented) at patient's floor/unit and/or counseling patient: Coding Level of Care Code 00394 Initial Inpt Care Lvl 3 Diagnoses Acute confusion R41.0 Generalized weakness R53.1 Closed head injury S09.90XA Encounter type: initial encounter Hypertensive urgency I16.0 Acute UTI (urinary tract infection) N39.0 Time Spent (min) 60 (1) Closed head injury Encounter type: initial encounter Qualified Code(s): S09.90XA - Unspecified injury of head, initial encounter
[2022-07-09] MEDS: HEPARIN SODIUM/DEXTROSE 25,000 UNITS/500 ML BAG IV SCH (18:23)
[2022-07-10] MEDS: METOPROLOL TARTRATE 1 MG/ML VIAL IV SCH ×3 (06:31→18:56)
[2022-07-10 08:31] LABS: Partial Thromboplastin Ratio 2.1
[2022-07-10 08:35] LABS: Partial Thromboplastin Time 58.4 Seconds (21.0-31.0)
--- NOTE | 2022-07-10 08:48 | Hospitalist Progress Note ---
Date of Service July 10, 2022 Assessment & Plan (1) AMS (altered mental status): Plan: 87 yo F Hx CVA, breast ca, PMR, HTN, hypothyroidism, AFib, dementia, diastolic CHF admitted for fall and head trauma with AMS. AMS: Presented with decreased orientation from baseline (AAOx1 with periods of confusion). Differential includes CVA not seen on CT, infectious, metabolic, post-concussive syndrome/hospital-related delirium in dementia patient. No meningitic signs. CT Head x2 negative for hemorrhage/CVA. CTA Head/Neck no acute findings. chronic small vessel ischemic changes and generalized cerebral atrophy noted, as well as left occipital hematoma unchanged from visualization on CT 07/06. 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 CT Chest negative for PE or pneumonia. UCx pansensitive E. coli; was placed on ceftriaxone which completed 07/09. Ammonia level normal. TSH and B12 normal. ABG without hypercapnea or acidosis/alkalosis. B1 pending, start thiamine for now. RPR pending. Lyme IgG/IgM negative. Delirium precautions such as honoring normal sleep/wake cycles, frequent reorientation. Avoid medications for agitation if at all possible however prefer Haldol in possible hospital-related delirium over benzodiazepine as first line choice. Neurology consulted and appreciate recommendations: suspect an underlying dementia with acute encephalopathy from UTI and closed head trauma, anticipate improvement with time. PT recommends SNF on discharge for continued strengthening. Can resume home medications. HOME DELIVERY DRIVER Cathy Murcia evaluated patient and appreciate recommendations: pureed diet with supervised feeds, continued HOME DELIVERY DRIVER on discharge to SNF. (2) Fall: Plan: With multiple falls in the 48 hours prior to admission. CT Head 07/03 and 07/04 without evidence of hemorrhage, CVA. CTA Head/Neck without hemorrhage or CVA. Patient does have a bruising and hematoma on posterior scalp, no worsening. CK level normal. PT and OT to continue to eval while admitted as able. Recommending SNF at this time. (3) UTI (urinary tract infection): Plan: UCx with >100k CFU pansensitive E. coli. Given 1 dose of ceftriaxone in the ED, completed a 5 day course of Rocephin on 07/09/22. (4) Elevated troponin: Plan: Troponin trend 24 -> 694 -> 134 without complaints of chest pain. No EKG changes suggestive of ACS. (5) Chronic combined systolic and diastolic CHF (congestive heart failure): Plan: Follows with cardiology and the heart failure team. Last Echo 07/03/2022 with normal LVEF, and grade II diastolic dysfunction. Some mild congestive changes on CT Chest on admission, but now appear clinically dry (elevated BUN/Cr ratio, mild hypernatremia), holding furosemide can have low sodium diet. (6) Permanent atrial fibrillation: Plan: Currently rate controlled. Resume home metoprolol and Xarelto. ChadsVasc score >5. (7) Hypertension: Plan: Noted to be significantly hypertensive on arrival to the ED with systolics in 220s. BP 140s systolic today. Resume home medications. PRN IV hydralazine 5mg q4h for systolic BP > 180. (8) Hypothyroid: Plan: TSH normal. 4mm thyroid nodule noted incidentally on imaging this admission. Follow up outpatient with thyroid US. (9) PMR (polymyalgia rheumatica): Plan: Transition back to PO prednisone from methylpred. No indication for stress dosing at this time. Likely why patient's WBC count is elevated. (10) Prediabetes: Plan: A1c 5.6%. Discontinued SSI. (11) Metabolic encephalopathy: Plan: Patient has had altered mental status and metabolic encephalopathy since admission, cognitive impairment from baseline which is AAOx1 with periods of redirectable confusion at home. Multifactorial causes including head trauma/post-concussion syndrome, UTI undergoing treatment, hypertension to 220s systolic on admission which has since resolved. Also suspect element of dementia with hospital-related delirium given patient is improving slowly and now having some visual hallucinations of people/animals, and family reports that she has had hospital delirium in the past. Neuro consulted and appreciate recommendations, for PT/OT/HOME DELIVERY DRIVER on discharge. Ultimately will likely need rehab on discharge. Family is concerned about her safety at home at this time given she lives with her (who also sustained a fall a few days ago and has debility himself). Plan DNR/DNI Med/Tele status Heparin gtt will cover DVT ppx until tomorrow resume Xarelto Admission and Anticipated Discharge Date Admission Date: July 04, 2022 Subjective No overnight events. Alert, answers some questions appropriately including her son (who was in the room)'s name, her other son's name, etc. She denies complaints except for pain "all over". Family reports that for many years she has had hyperalgesia to her skin, even with gentle touch. Patient's sons concerned for both parents' home safety. Review of Systems Review of Systems: All systems reviewed & are unremarkable except as noted in Subjective Physical Exam Constitutional: WD/WN, vitals as above Respiratory: normal respiratory effort, lungs clear to auscultation Gastrointestinal (Abdomen): normal bowel sounds, soft, nontender, no hepatosplenomegaly Skin: no rashes, warm and dry Psychiatric: Orientation: oriented to person; + not oriented to time Results & Data Results & Data ([facility]) Vital Signs (Past 12 Hours) Vital Signs Temp Pulse Pulse Resp BP BP BP 07/10/22 08:20 36.8 C 70 18 149/60 H 07/10/22 06:31 60 159/64 H 07/10/22 03:00 36.4 C L 60 17 159/64 H 07/09/22 23:46 60 07/09/22 23:00 36.9 C 60 16 155/79 H 07/09/22 23:34 60 155/79 H 07/09/22 23:09 36.3 C L 62 18 147/72 H Pulse Ox O2 Del Method 07/10/22 08:20 96 Room Air 07/10/22 06:31 07/10/22 03:00 95 Room Air 07/09/22 23:46 07/09/22 23:00 92 Room Air 07/09/22 23:34 07/09/22 23:09 94 Room Air PG Care Time/CCT Total # of Minutes Spent Total Time Spent with Patient: Total time spent is greater than 50% in coordination of care (as documented) at patient's floor/unit and/or counseling patient: Coding Level of Care Code 31420 SUB INP/OBS CARE 2/35MIN Diagnoses AMS (altered mental status) R41.82 Fall W19.XXXA UTI (urinary tract infection) N39.0 Elevated troponin R77.8 Chronic combined systolic and diastolic CHF (congestive heart failure) I50.42 Permanent atrial fibrillation I48.21 Hypertension I10 Hypothyroid E03.9 PMR (polymyalgia rheumatica) M35.3 Prediabetes R73.03 Metabolic encephalopathy G93.41
[2022-07-10] MEDS: THIAMINE HCL 100 MG in SYRINGE 9 ML IV SCH (08:49)
[2022-07-10] MEDS: METHYLPREDNISOLONE IV SCH (08:49)
[2022-07-10] MEDS: HEPARIN SODIUM/DEXTROSE 25,000 UNITS/500 ML BAG IV SCH (12:30)
[2022-07-11 00:15] LABS: Rapid Plasma Reagin Nonreactive (Nonreactive)
[2022-07-11] MEDS: METOPROLOL TARTRATE 1 MG/ML VIAL IV SCH ×2 (00:56→05:05)
[2022-07-11] MEDS: LEVOTHYROXINE SODIUM 150 MCG TABLET PO SCH (06:26)
[2022-07-11 06:28] LABS: Hematocrit (blood only) 37.2 % (34.1-44.9); Hemoglobin 12.1 g/dl (12.0-16.0); Mean Corpuscular Hemoglobin 30.4 pg (25.0-34.0); Mean Corpuscular Hgb Conc 32.5 g/dL (32.0-36.0); Mean Corpuscular Volume 93.5 fL (80.0-100.0); Mean Platelet Volume 11.7 fL (9.4-12.3); Platelet Count 260 K/uL (130-400); RDW Coefficient of Variation 13.2 % (11.5-14.5); RDW Standard Deviation 44.9 fL (36.4-46.3); Red Blood Count 3.98 M/uL (3.93-5.22); White Blood Count 15.19 K/ul (4.8-10.8)
[2022-07-11] MEDS: hydrALAZINE HCL 20 MG/ML VIAL IV PRN (06:32)
[2022-07-11 06:51] LABS: Partial Thromboplastin Ratio 2.9
[2022-07-11 06:56] LABS: BUN Creatinine Ratio 32.9 (10-20); Calcium 8.7 mg/dl (8.5-10.1); Creatinine Clr Calc Pharmacy 61.3 ml/min; Est GFR (Non-African American) 67.3 ml/min; Potassium 3.9 mmol/L (3.5-5.1)
[2022-07-11 07:00] LABS: Partial Thromboplastin Time 80.3 Seconds (21.0-31.0)
[2022-07-11] MEDS: HEPARIN SODIUM/DEXTROSE 25,000 UNITS/500 ML BAG IV SCH (07:13)
--- NOTE | 2022-07-11 07:55 | Hospitalist Progress Note ---
Date of Service July 11, 2022 Assessment & Plan (1) AMS (altered mental status): Plan: 87 yo F Hx CVA, breast ca, PMR, HTN, hypothyroidism, AFib, dementia, diastolic CHF admitted for fall and head trauma with AMS. AMS: Presented with decreased orientation from baseline (AAOx1 with periods of confusion). Differential includes CVA not seen on CT, infectious, metabolic, post-concussive syndrome/hospital-related delirium in dementia patient. No meningitic signs. CT Head x2 negative for hemorrhage/CVA. CTA Head/Neck no acute findings. chronic small vessel ischemic changes and generalized cerebral atrophy noted, as well as left occipital hematoma unchanged from visualization on CT 07/06. 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 CT Chest negative for PE or pneumonia. UCx pansensitive E. coli; was placed on ceftriaxone which completed 07/09. Ammonia level normal. TSH and B12 normal. ABG without hypercapnea or acidosis/alkalosis. B1 pending, continue thiamine. RPR pending. Lyme IgG/IgM negative. Delirium precautions such as honoring normal sleep/wake cycles, frequent reorientation. Avoid medications for agitation if at all possible however prefer Haldol in possible hospital-related delirium over benzodiazepine as first line choice. Neurology consulted and appreciate recommendations: suspect an underlying dementia with acute encephalopathy from UTI and closed head trauma, and anticipate improvement with time. PT recommends SNF on discharge for continued strengthening. DAY CARE CENTER DIRECTOR on discharge for advancing diet as tolerated from pureed to minced and moist as tolerated. Supervision needed for all meals. Continue home medications. Possible discharge for rehab and continued strengthening tomorrow. (2) Fall: Plan: With multiple falls in the 48 hours prior to admission. Per children patient's functional status has been poor for some time, needing help to get up from sitting for example. CT Head 07/03 and 07/04 without evidence of hemorrhage, CVA. CTA Head/Neck without hemorrhage or CVA. Patient does have a bruising and hematoma on posterior scalp, no worsening. CK level normal. PT and OT to continue to eval while admitted as able. Recommending SNF at this time. (3) UTI (urinary tract infection): Plan: UCx with >100k CFU pansensitive E. coli. Given 1 dose of ceftriaxone in the ED, completed a 5 day course of Rocephin on 07/09/22. (4) Elevated troponin: Plan: Troponin trend 24 -> 694 -> 134 without complaints of chest pain. No EKG changes suggestive of ACS. (5) Chronic combined systolic and diastolic CHF (congestive heart failure): Plan: Follows with cardiology and the heart failure team. Last Echo 07/03/2022 with normal LVEF, and grade II diastolic dysfunction. Some mild congestive changes on CT Chest on admission, but now appear clinically dry (elevated BUN/Cr ratio, mild hypernatremia). Small bolus given with improvement in hyperNa, no evidence of fluid overload. (6) Permanent atrial fibrillation: Plan: Currently rate controlled. Continue home metoprolol and Xarelto. ChadsVasc score >5. (7) Hypertension: Plan: Noted to be significantly hypertensive on arrival to the ED with systolics in 220s. BP 140-160s systolic today. Continue home medications. PRN IV hydralazine 5mg q4h for systolic BP > 180. (8) Hypothyroid: Plan: TSH normal. 4mm thyroid nodule noted incidentally on imaging this admission. Follow up outpatient with thyroid US. (9) PMR (polymyalgia rheumatica): Plan: Transitioned back to PO prednisone from methylpred (was on due to NPO). No indication for stress dosing at this time. Likely why patient's WBC count is elevated. No evidence of systemic infection, UTI tx completed as above. (10) Prediabetes: Plan: A1c 5.6%. Diet controlled. (11) Metabolic encephalopathy: Plan: Patient has had altered mental status and metabolic encephalopathy since admission, cognitive impairment from baseline which is AAOx1 with periods of redirectable confusion at home. Multifactorial causes including head trauma/post-concussion syndrome, UTI undergoing treatment, hypertension to 220s systolic on admission which has since resolved. Also suspect element of dementia with hospital-related delirium given patient is improving slowly and now having some visual hallucinations of people/animals, and family reports that she has had hospital delirium in the past. Neuro consulted and appreciate recommendations, for PT/OT/DAY CARE CENTER DIRECTOR on discharge. Ultimately will likely need rehab on discharge. Family is concerned about her safety at home at this time given she lives with her (who also sustained a fall a few days ago and has significant debility himself). Plan DNR/DNI Med/Tele status Xarelto for AFib will cover DVT ppx Admission and Anticipated Discharge Date Admission Date: July 04, 2022 Subjective No overnight events. In the morning Rosio was more conversant, confused at times, tangential, but redirectable. No complaints. This afternoon more tired, had to repeat several times the questions to get anwers. Simple questions were easy for her to answer, however more complex questions she does not always answer properly. Review of Systems Review of Systems: All systems reviewed & are unremarkable except as noted in Subjective Physical Exam Constitutional: WD/WN, vitals as above Respiratory: normal respiratory effort, lungs clear to auscultation Gastrointestinal (Abdomen): normal bowel sounds, soft, nontender, no hepatosplenomegaly Skin: no rashes, warm and dry Neurologic: arouses to voice, answers simple questions (able to tell me what my glasses are and what a pen is, but not what they are for. knows her children's names and her 's name in the room) Psychiatric: Orientation: oriented to person Results & Data Results & Data ([facility]) Vital Signs (Past 12 Hours) Vital Signs Temp Pulse Pulse Resp BP Pulse Ox O2 Del Method 07/11/22 06:25 182/57 H 07/11/22 00:01 Room Air 07/11/22 05:13 36.6 C 65 20 201/63 H 96 Room Air 07/11/22 05:05 70 07/11/22 00:42 36.5 C 60 20 181/64 H 96 Room Air 07/11/22 00:56 62 PG Care Time/CCT Total # of Minutes Spent Total Time Spent with Patient: Total time spent is greater than 50% in coordination of care (as documented) at patient's floor/unit and/or counseling patient: Coding Level of Care Code 68802 SUB INP/OBS CARE 2/35MIN Diagnoses AMS (altered mental status) R41.82 Fall W19.XXXA UTI (urinary tract infection) N39.0 Elevated troponin R77.8 Chronic combined systolic and diastolic CHF (congestive heart failure) I50.42 Permanent atrial fibrillation I48.21 Hypertension I10 Hypothyroid E03.9 PMR (polymyalgia rheumatica) M35.3 Prediabetes R73.03 Metabolic encephalopathy G93.41
[2022-07-11] MEDS: predniSONE 1 MG TAB PO SCH (09:32)
[2022-07-11] MEDS: THIAMINE HCL 100 MG in SYRINGE 9 ML IV SCH (09:33)
[2022-07-11] MEDS: POTASSIUM CHLORIDE CRTAB 20 MEQ TABCR PO SCH (09:42)
[2022-07-11] MEDS: LOSARTAN POTASSIUM 50 MG TAB PO SCH (11:13)
[2022-07-11] MEDS: MULTIVITAMIN TAB PO SCH (11:13)
[2022-07-11] MEDS: MAGNESIUM CHLORIDE W/CALCIUM 64MG DELAYED REL TAB PO SCH (11:13)
[2022-07-11] MEDS: SODIUM CHLORIDE 0.45 % 1,000 ML IV SCH ×2 (11:36→21:38)
[2022-07-11 14:14] LABS: BUN Creatinine Ratio 34.3 (10-20); Calcium 9.2 mg/dl (8.5-10.1); Creatinine Clr Calc Pharmacy 69.1 ml/min; Est GFR (African American) 90.3 ml/min; Est GFR (Non-African American) 77.9 ml/min; Potassium 4.1 mmol/L (3.5-5.1)
[2022-07-11] MEDS: RIVAROXABAN 20 MG TAB PO SCH (14:25)
[2022-07-11] MEDS: ACETAMINOPHEN 500 MG TAB PO SCH (17:35)
[2022-07-11] MEDS: METOPROLOL SUCC 50MG EXT REL TAB PO SCH (20:28)
[2022-07-12] MEDS: ACETAMINOPHEN 500 MG TAB PO SCH ×2 (02:49→09:41)
[2022-07-12] MEDS: LEVOTHYROXINE SODIUM 150 MCG TABLET PO SCH (05:38)
[2022-07-12] MEDS: hydrALAZINE HCL 20 MG/ML VIAL IV PRN (05:48)
[2022-07-12] MEDS: LOSARTAN POTASSIUM 50 MG TAB PO SCH (06:08)
[2022-07-12 07:11] LABS: Hematocrit (blood only) 38.7 % (34.1-44.9); Hemoglobin 12.9 g/dl (12.0-16.0); Mean Corpuscular Hemoglobin 30.7 pg (25.0-34.0); Mean Corpuscular Hgb Conc 33.3 g/dL (32.0-36.0); Mean Corpuscular Volume 92.1 fL (80.0-100.0); Mean Platelet Volume 11.3 fL (9.4-12.3); Nucleated RBC # (auto) 0.02 K/uL (0-0); Nucleated RBC % (auto) 0.2 %; Platelet Count 271 K/uL (130-400); RDW Coefficient of Variation 13.5 % (11.5-14.5); RDW Standard Deviation 45.6 fL (36.4-46.3); White Blood Count 11.55 K/ul (4.8-10.8)
[2022-07-12] MEDS: SODIUM CHLORIDE 0.45 % 1,000 ML IV SCH (07:11)
[2022-07-12 07:45] LABS: BUN Creatinine Ratio 28.9 (10-20); Calcium 8.5 mg/dl (8.5-10.1); Creatinine Clr Calc Pharmacy 61.4 ml/min; Est GFR (African American) 81.7 ml/min; Est GFR (Non-African American) 70.5 ml/min; Potassium 3.8 mmol/L (3.5-5.1)
--- NOTE | 2022-07-12 08:32 | Discharge Summary ---
Discharge Summary Date of Service July 12, 2022 Admission HPI Per Admitting Provider Rosio is an 87 year old female with a past medical history including polymyalgia rheumatica, hypertension, hypothyroidism, combined systolic/diastolic CHF (LVEF of 35-40%, mild left ventricle dilation, severely enlarged left and right atria, and mild miltral regurgitation as of 2016), S/P biventricular AICD, breast cancer, permanent atrial fibrillation S/P AV Emmy ablation in 2017 on Xarelto, and prediabetes who presented to the [facility] ED on 07/03/22 via EMS from home after a mechanical fall. Of note, the patient did hit the back of her head and was noted to be confused after. EMS found the patient to be hypertensive at 224/220, no interventions were given prior to her arrival to the ED besides placed her on 2L NC. In the ED the patient was found to be afebrile, hypertensive at 219/86, and stable on RA. Labs were remarkable for a leukocytosis of 11.81 with left shift of 9.48, stable Hgb at 13.4 with platelets of 250, INR of 1.1, stable cr of 0.93, calcium of 10.7 otherwise stable electrolytes, glucose of 117, total bili of 1.1, direct bili of 0.2 otherwise stable liver function, initial high sensitivity troponin of 24.2, UA showing positive nitrites, 3+ Leukocyte esterase, and covid/influenza/RSV negative. CT of the head was read as No acute intracranial hemorrhage or skull fractures. Scalp swelling is seen in the left posterior soft tissues.. CT of the cervical spine was read as 1. There is no evidence of fracture or subluxation involving the cervical spine. 2. Osteopenia and mild spondylotic change as above.. Chest xray was read as 1. Cardiomegaly and AICD without radiographic evidence of congestive failure. 2. No airspace consolidation or large pleural effusion is identified.. Pelvis xray was read as Degenerative changes without evidence of acute abnormality.. The patient was given 2 doses of 10 mg Iv labetalol and her blood pressure improved to 121/67. Prior to admission the patient was given a dose of Ceftriaxone for her UTI. At the time of the exam the patient was resting comfortably in bed in no acute distress with her son sitting bedside. History was obtained from the patient's son due to the patient's current confusion. Her son states that the patient has had multiple falls and not acting herself over the past 48-72 hours. Her son states that he last saw her on and she had been acting herself. When asked about her baseline mental status her son states that she is normally alert and oriented to self, close contacts, and at least year. However, her son did not there have been times in the recent past that she has intermittent confusion. Last night the patient had a fall from standing, they are unsure if she hit her head or lost consciousness as the patient lives with her . The son's brother went over to the patient's house and helped the patient get up and into bed. Her son today thinks she was down on the ground for maybe an hour before their father called them for help. This am the patient had another fall from standing, this time hitting the back of her head. Again, they are unsure if the patient lost consciousness. Her son at bedside states that he thinks she was down for a few hours prior to their father calling them to help him get her up. Her son at bedside states that she has not been ill recently and has had no recent medication changes. He has been happy because her lower extremity swelling has been well-controlled recently. I explained that we would ideally get an MRI of the brain for further assessment but I will need to see if her pacemaker is MRI compatible. I spoke tothe patient's son regarding code status as she is confused during my exam. He confirmed that the patient is a DNR/DNI. Please refer to Dr. Carranza's attestation for any changes to the treatment plan Admission Exam Per Admitting Provider General: In no acute distress, stated age, well-nourished, good hygiene, pleasantly confused at the time of the exam HEENT: patient with a large hematoma on the posterior scalp, no scleral icterus, pupils around round, symmetrical, and reactive to light, Dry mucus membranes, trachea midline, no thyromegaly Chest/Pulm: No respiratory distress, symmetrical chest expansion, clear breath sounds throughout Cardiac: irregular rate and rhythm, no murmurs noted Abdomen: Negative for ascites and bruising, normoactive bowel sounds, soft, non- tender to palpation throughout Musculoskeletal: Symmetrical and without signs of acute trauma, upper and lower extremities with full ROM, no atrophy, spasticity, or flaccidity Extremities: Radial, dorsalis pedis, and posterior tibial pulses are intact and symmetrical, no edema noted in the BL LE's Skin: Warm, dry, no rashes , lesions, or scars noted, no other bruising or trauma besides the large posterior scalp hematoma Neuro: Alert and oriented to person only, currently pleasantly confused and follows commands approximately 50% of the time during the exam, no focal defects, CN II-XII tested and intact, symmetrical strength in the BL upper and lower extremities Psych: No acute distress, calm, pleasantly confused Principal Dx & Hospital Course #1 = Principal Diagnosis (1) Metabolic encephalopathy: 87 yo F Hx CVA, breast ca, PMR, HTN, hypothyroidism, AFib, dementia, diastolic CHF admitted for fall and head trauma with AMS. Metabolic encephalopathy: Patient has had altered mental status and metabolic encephalopathy since admission, cognitive impairment from baseline which is AAOx1 with periods of redirectable confusion at home. CT Head x2 without evidence of hemorrhage or CVA. CT Chest no pna. UA and UCx suggest infection, completed tx x5 days with Rocephin. Electrolytes normal, no Lyme IgG/IgM. Multifactorial causes of presentation including head trauma/post-concussion syndrome, UTI undergoing treatment, hypertension to 220s systolic on admission which has since improved (180s systolic on discharge). Also suspect element of dementia with hospital-related delirium given patient is improving slowly and josselyn martinez reports that she has had hospital delirium in the past. Neuro consulted and appreciate recommendations, for PT/OT/MACHINE PRINTER on discharge, cannot completely rule out CVA but more likely dementia/delirium/concussion. Family is concerned about her safety at home given she lives with her (who also sustained a fall a few days ago and has significant debility himself). For discharge to [facility] today for continued PT and OT. Also for MACHINE PRINTER on discharge for advancing diet as tolerated from pureed to minced and moist as tolerated. Supervision needed for all meals. Continue home medications save for Lasix, see below. Melatonin as needed for sleep to maintain sleep/wake cycle. Miralax as needed for constipation. (2) Fall: With multiple falls in the 48 hours prior to admission. Per children patient's functional status has been poor for some time (years), needing help to get up from sitting for example, cannot walk stairs at baseline. CT Head 07/03 and 07/04 without evidence of hemorrhage, CVA. CTA Head/Neck without hemorrhage or CVA. Patient does have a bruising and hematoma on posterior scalp, no worsening. CK level normal. PT and OT to continue to evaluate and treat at [facility]. (3) UTI (urinary tract infection): UCx with >100k CFU pansensitive E. coli. Completed a 5 day course of Rocephin on 07/09/22. (4) Elevated troponin: Troponin trend 24 -> 694 -> 134 without complaints of chest pain. No EKG changes suggestive of ACS. (5) Chronic combined systolic and diastolic CHF (congestive heart failure): Follows with Cardiology and the heart failure team. Last Echo 07/03/2022 with normal LVEF, and grade II diastolic dysfunction. Some mild congestive changes on CT Chest on admission, but in the days prior to discharge appeared clinically dry (elevated BUN/Cr ratio, mild hypernatremia). As patient has diastolic dysfunction and venous stasis, recommend compression hosiery over Lasix at least while at [facility]. Has not required Lasix for fluid balance while admitted on low sodium diet. (6) Permanent atrial fibrillation: Currently rate controlled. Continue home metoprolol and Xarelto. ChadsVasc score >5. (7) Hypertension: Noted to be significantly hypertensive on arrival to the ED with systolics in 220s. BP 180s systolic on discharge. Continue home medications with continued adjustment per PCP. (8) Hypothyroid: TSH normal. 4mm thyroid nodule noted incidentally on imaging this admission. Follow up outpatient with thyroid US. (9) PMR (polymyalgia rheumatica): Transitioned back to PO prednisone from methylpred (was on due to NPO). No indication for stress dosing at this time. Likely why patient's WBC count is elevated. No evidence of systemic infection, UTI tx completed as above. (10) Prediabetes: A1c 5.6%. Diet controlled. Plan Dispo: discharged to [facility] Discharge Exam Constitutional WD/WN, vitals as above Respiratory normal respiratory effort, lungs clear to auscultation Cardiovascular HR irregularly irregular non-tachycardic Gastrointestinal (Abdomen) normal bowel sounds, soft, nontender, no hepatosplenomegaly Neurologic today able to answer some more complex questions and follow some commands better (for example: can tell me what glasses are, that they are used to see, could tell me her straw is for drinking, and was able to slowly lift cup to her lips to take a drink) Psychiatric Orientation: oriented to person Updated Medication List Medication Instructions Recorded Confirmed Type magnesium chloride 64 mg 64 mg PO DAILY 05/11/18 07/03/22 History (magnesium chloride) tablet,delayed release metoprolol succinate 200 mg 200 mg PO QPM 05/11/18 07/03/22 History tablet,extended release 24 hr multivitamin 1 tab PO DAILY 05/11/18 07/03/22 History levothyroxine 150 mcg tablet 150 mcg PO DAILY #90 tabs 02/26/19 07/03/22 Rx prednisone 5 mg tablet 7 mg PO DAILY 02/21/20 07/03/22 History losartan 50 mg tablet 50 mg PO DAILY #90 tabs 04/23/21 07/03/22 Rx rivaroxaban 20 mg tablet (Xarelto) 20 mg PO DAILY #90 tabs 10/01/21 07/03/22 Rx furosemide 40 mg tablet 60 mg PO DAILY edema #135 tabs 03/04/22 07/03/22 Rx potassium chloride 20 mEq 20 meq PO DAILY #90 tabs 03/04/22 07/03/22 Rx tablet,extended release melatonin 3 mg tablet 3 mg PO HS PRN sleep 30 days #30 07/12/22 Rx tabs polyethylene glycol 3350 17 gram 17 g PO DAILY PRN constipation 30 07/12/22 Rx oral powder packet (Miralax) days #30 ea Hospital Stay Data Consultations 07/03/22 11:27 ED Decision to Admit Stat 07/09/22 07:00 Consult Neurology Routine Diagnostic Imagining Performed 07/03/22 08:02 CT cervical spine wo con Stat CT head/brain wo con Stat 07/04/22 07:00 CT head/brain wo con Routine 07/06/22 14:38 CT angio chest PE protocol Routine 07/08/22 07:56 CT angio head wo/w Routine CTA neck with con [CT angio neck with con] Routine Discharge Instructions Given to Patient (Per Discharging Provider) 87 yo F Hx CVA, breast ca, PMR, HTN, hypothyroidism, AFib, dementia, diastolic CHF admitted for fall and head trauma with AMS. Metabolic encephalopathy: Patient has had altered mental status and metabolic encephalopathy since admission, cognitive impairment from baseline which is AAOx1 with periods of redirectable confusion at home. CT Head x2 without evidence of hemorrhage or CVA. CT Chest no pna. UA and UCx suggest infection, completed tx x5 days with Rocephin. Electrolytes normal, no Lyme. Multifactorial causes including head trauma/post-concussion syndrome, UTI undergoing treatment, hypertension to 220s systolic on admission which has since resolved. Also suspect element of dementia with hospital-related delirium given patient is improving slowly and now having some visual hallucinations of people/animals, and family reports that she has had hospital delirium in the past. Neuro consulted and appreciate recommendations, for PT/OT/MACHINE PRINTER on discharge. Ultimately will likely need rehab on discharge. Family is concerned about her safety at home at this time given s he lives with her (who also sustained a fall a few days ago and has significant debility himself). Neurology consulted and appreciate recommendations: suspect an underlying dementia with acute encephalopathy from UTI and closed head trauma, and anticipate improvement with time. For discharge to [facility] today for continued PT and OT. Also for MACHINE PRINTER on discharge for advancing diet as tolerated from pureed to minced and moist as tolerated. Supervision needed for all meals. Continue home medications save for Lasix, see below. Melatonin as needed for sleep to maintain sleep/wake cycle. Miralax as needed for constipation. Fall: With multiple falls in the 48 hours prior to admission. Per children patient's functional status has been poor for some time, needing help to get up from sitt ing for example, cannot walk stairs at baseline. CT Head 07/03 and 07/04 without evidence of hemorrhage, CVA. CTA Head/Neck without hemorrhage or CVA. Patient does have a bruising and hematoma on posterior scalp, no worsening. CK level normal. PT and OT to continue to evaluation at [facility]. UTI (urinary tract infection): UCx with >100k CFU pansensitive E. coli. Given 1 dose of ceftriaxone in the ED, completed a 5 day course of Rocephin on 07/09/22. Elevated troponin: Troponin trend 24 -> 694 -> 134 without complaints of chest pain. No EKG changes suggestive of ACS. Chronic combined systolic and diastolic CHF (congestive heart failure): Follows with Cardiology and the heart failure team. Last Echo 07/03/2022 with normal LVEF, and grade II diastolic dysfunction. Some mild congestive changes on CT Chest on admission, but now appear clinically dry (elevated BUN/Cr ratio, mild hypernatremia). As patient has diastolic dysfunction and venous stasis, recommend compression hosiery over Lasix at least while at [facility]. Has not required Lasix for fluid balance while admitted on low sodium diet. Permanent atrial fibrillation: Currently rate controlled. Continue home metoprolol and Xarelto. ChadsVasc score >5. Hypertension: Noted to be significantly hypertensive on arrival to the ED with systolics in 220s. BP 140-160s systolic today. Continue home medications. PRN IV hydralazine 5mg q4h for systolic BP > 180. Hypothyroid: TSH normal. 4mm thyroid nodule noted incidentally on imaging this admission. Follow up outpatient with thyroid US. PMR (polymyalgia rheumatica): Transitioned back to PO prednisone from methylpred (was on due to NPO). No indication for stress dosing at this time. Likely why patient's WBC count is elevated. No evidence of systemic infection, UTI tx completed as above. Prediabetes: A1c 5.6%. Diet controlled. Total Time Total Time Spent Total Time Spent (In Minutes): 45 minutes Coding Level of Care Code HOSP INP/OBS DISCH >30 MIN Diagnoses Metabolic encephalopathy G93.41 Fall W19.XXXA UTI (urinary tract infection) N39.0 Elevated troponin R77.8 Chronic combined systolic and diastolic CHF (congestive heart failure) I50.42 Permanent atrial fibrillation I48.21 Hypertension I10 Hypothyroid E03.9 PMR (polymyalgia rheumatica) M35.3 Prediabetes R73.03
[2022-07-12] MEDS: predniSONE 1 MG TAB PO SCH (09:39)
[2022-07-12] MEDS: THIAMINE HCL 100 MG in SYRINGE 9 ML IV SCH (09:41)
[2022-07-12] MEDS: MAGNESIUM CHLORIDE W/CALCIUM 64MG DELAYED REL TAB PO SCH (09:41)
[2022-07-12] MEDS: MULTIVITAMIN TAB PO SCH (09:41)
[2022-07-12] MEDS: POTASSIUM CHLORIDE CRTAB 20 MEQ TABCR PO SCH (09:41)
== END 2022-07-12 12:20 | DRG 689 ==
LOC: EDINP 08:05 → ED 08:05 → SUATTDRO 11:16 → EDINP 13:07 → 2N 23:45 → SUATTDRO 07-04 09:06 → 2S 07-06 22:00 → 2W 07-09 19:53 → 2S 07-09 23:18 → 3W 07-11 07:51